=== PATIENT | male | born 1970 | race Caucasian/White ===

== ENCOUNTER 2019-01-19 06:54 | Inpatient (IN) ==
--- NOTE | 2019-01-19 07:25 | Emergency Department Note ---
Disposition Clinical Impression: Acute pancreatitis Qualifiers: Pancreatitis type: alcohol induced Acute pancreatitis complication: no infection or necrosis Qualified Code(s): K85.20 - Alcohol induced acute pancreatitis without necrosis or infection Nausea & vomiting Qualifiers: Vomiting type: unspecified Vomiting Intractability: intractable Qualified Code(s): R11.2 - Nausea with vomiting, unspecified Disposition: Admitted As Inpatient Condition: Fair Abdominal Pain HPI - General Chief Complaint: ED Abdominal Pain Stated Complaint: Abd Pain Time Seen by Provider: 01/19/19 07:04 Source: patient Nursing Notes Reviewed: Yes Vital Signs Reviewed: Yes - History of Present Illness HPI Narrative: 48 male with past history of alcoholic cirrhosis and pancreatitis presented to the emergency department yesterday with 2 week history of abdominal pain. Workup yesterday including basic labs and CT imaging of the abdomen and pelvis demonstrated findings significant with chronic pancreatitis. Patient was offered admission for pain and nausea control but declined and returned home wit h immediate release morphine and Zofran. He returned to the emergency department today stating his pain is not controlled at home and is requesting admission for pain and nausea control today. He denies any changes from yesterday in his pain or associated nausea, or any new symptoms. He denies any vomiting within the last several days. Last bowel movement was 2 days ago and was normal. Additional associated symptoms included abdominal distention, weight loss secondary to decreased by mouth intake. Otherwise no acute complaints. Patient states he has abstained from alcohol for 2 years, does not use drugs or tobacco. Pain Scale: 8 - Related Data Home Medications Medication Instructions Recorded Confirmed Amlodipine [Amlodipine Besylate] 10 mg PO QAM 08/16/15 05/27/16 Nadolol [Corgard] 20 mg PO QAM 08/16/15 05/27/16 Divalproex (12 HR) [Depakote (12 250 mg PO TID 05/27/16 05/27/16 HR)] Baclofen 01/09/18 Citalopram 01/09/18 Gabapentin 01/09/18 Lisinopril 01/09/18 Naltrexone 01/09/18 Ranitidine HCl 01/09/18 Previous Rx's Medication Instructions Recorded Amoxicillin/Clavulanate [Augmentin] 875 mg PO BIDWM 7 Days #14 tablet 01/18/19 Morphine Immed Rel [Morphine 15 mg PO Q6HR PRN 4 Days #12 tab 01/18/19 Sulfate] Ondansetron [Zofran ODT] 8 mg SL Q8H PRN 4 Days #12 tab 01/18/19 Allergies Allergy/AdvReac Type Severity Reaction Status Date / Time hydrocodone [From Vicodin] Allergy Rash Verified 01/19/19 07:06 oxycodone [From Percocet] Allergy Rash Verified 01/19/19 07:06 narcotics AdvReac Gastrointestinal Uncoded 10/05/15 11:22 Upset All systems ED: reviewed and negative except as stated. Review of Systems: As Per HPI Abdominal Pain PMH - Past Medical History Medical history: Reports: hypertension, seizures Male Surgical History: Reports: other Psychiatric history: Reports: depression - Social History Smoking status: Former smoker Alcohol use: Reports: none Drug use: Reports: none Physical Exam - General Limitations: no limitations General appearance: alert, in no apparent distress - Eye Eye exam: Present: normal appearance, PERRL. 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 Absent: ascites (No fluid wave) Abdominal tenderness: Present: LLQ, diffuse, mild - Extremities Exam Extremities exam: Present: normal inspection - Back Exam Back exam: Present: normal inspection - Neurological Exam Neurological exam: Present: alert, oriented X3 - Psychiatric Psychiatric exam: Present: normal affect - Skin Skin exam: Present: warm, dry Course Course Narrative: Patient was evaluated in the emergency department yesterday for pain and nausea secondary to acute on chronic chronic pancreatitis. We will reassess with CBC, BMP, lipase, ethanol, EKG. We will not repeat imaging as CT of the abdomen and pelvis was performed yesterday without acute change in clinical signs or symptoms today. Anticipate admission to medicine for intractable pain and nausea control. Vital Signs Temperature 98.3 F 01/19/19 07:03 Pulse Rate 95 01/19/19 07:03 Respiratory Rate 16 01/19/19 07:03 Blood Pressure 127/92 01/19/19 07:03 O2 Sat by Pulse Oximetry 95 01/19/19 07:03 Temperature 98.3 F 01/19/19 07:03 Pulse Rate 95 01/19/19 07:03 Respiratory Rate 18 01/19/19 10:44 Blood Pressure 144/102 01/19/19 10:44 O2 Sat by Pulse Oximetry 95 01/19/19 07:03 Oxygen Delivery Oxygen Delivery Room Air Abdominal Pain - MDM Narrative Medical decision making narrative: Labs demonstrating leukocytosis, thrombocytosis, stable hemoglobin consistent more with hemoconcentration secondary to dehydration rather than acute infectious process. He does not have fever, tachycardia, other clinical signs or symptoms to indicate infectious process. BMP significant for hyponatremia, hypokalemia, hypochloremia, elevated lipase. Lipase of 119 is not elevated into the thousands as may be expected with pancreatitis however it is likely that his chronic pancreatitis has impaired his ability to produce lipase. EKG stable. We will supplement with normal saline bolus and intravenous potassium. Based on patient's intractable nausea and pain secondary to pancreatitis we will admit to the medicine service for pain control and nausea control. Spoke with Dr. Lopez admitting hospitalist who accepted. - Medical Records Medical records reviewed: Yes I reviewed the patient's medical records. - Lab Data Lab results reviewed: Yes I reviewed the patient's lab results. Result diagrams: 01/19/19 07:55 01/19/19 07:55 Lab Results 01/19/19 01/19/19 Range/Units 07:55 07:55 WBC 19.2 H (4.3-11.1) K/mcL RBC 4.46 (4.19-5.50) M/mcL Hgb 14.3 (12.9-16.9) g/dL Hct 41.2 (37.5-50.1) % MCV 92.4 (83.0-100.0) fL MCH 32.1 (28.0-33.3) pg MCHC 34.7 (31.6-35.5) g/dL RDW 16.4 H (11.5-14.5) % Plt Count 616 H (140-400) K/mcL MPV 10.6 (9.4-12.4) fL Immature Gran % 2.6 (0-4) % Seg Neutrophils % 76.1 % Lymphocytes % 8.3 % Monocytes % 12.1 % Eosinophils % 0.4 % Basophils % 0.5 % Neutrophils # 14.6 H (1.6-8.9) K/mcL Lymphocytes # 1.6 (0.6-4.6) K/mcL Monocytes # 2.3 H (0.0-1.3) K/mcL Eosinophils # 0.1 (0.0-0.6) K/mcL Basophils # 0.1 (0.0-0.2) K/mcL Nucleated RBCs/100 WBC 0.3 H (0) /100 WBC Sodium 128 L (136-145) mEq/L Potassium 3.1 L (3.5-5.1) mEq/L Chloride 93 L (98-107) mEq/L Carbon Dioxide 19 L (23-29) mEq/L BUN 13 (6-20) mg/dL Creatinine 0.87 (0.70-1.30) mg/dL Est GFR ( Amer) > 60 (> 60) Est GFR (Non-Af Amer) > 60 (> 60) BUN/Creatinine Ratio 15 (6-26) Glucose 115 H (70-105) mg/dL Calculated Osmolality 267 L (280-300) Calcium 8.9 (8.6-10.3) mg/dL Magnesium 2.0 (1.6-2.6) mg/dL Lipase 119 H (11-82) Units/L Ethyl Alcohol < 10 (Less than 10) mg/dL - EKG Data EKG attestation: Yes I reviewed and interpreted this EKG. EKG results narrative: EKG performed 01/19/2019 for abdominal pain. Reviewed by myself and the attending. Sinus rhythm, heart rate 93, PA 143, QTC 461. No signs of ST elevation or depression, T-wave inversion or other indications of acute ischemia. There is 1 apparent PVC present. Attestation Statement - Attestation Attestation: I, Guy Henry DO, examined this patient [id number] and my medical decision-making was reviewed with Maximo Aiken PGY-1, Resident Physician. I agree with the documented findings, disposition and treatment plan as described except to the extent set forth below. I personally supervised and was present for the knowles/critical portions of the procedures completed by the resident documented below. Please see my progress notes for details.
[2019-01-19] MEDS ORDERED: *HR* FentaNYL (PF) 100 MCG/2 ML VIAL IVP ONE (07:31)
[2019-01-19] MEDS ORDERED: Ondansetron 4 MG/2 ML VIAL ONE (07:53)
[2019-01-19] MEDS: Ondansetron 4 MG/2 ML VIAL IVP ONE ×2 (07:56→07:59)
--- NOTE | 2019-01-19 08:14 | Emergency Department Note ---
Disposition Clinical Impression: Nausea & vomiting Acute pancreatitis Qualifiers: Pancreatitis type: alcohol induced Acute pancreatitis complication: no infection or necrosis Qualified Code(s): K85.20 - Alcohol induced acute pancreatitis without necrosis or infection Disposition: Admitted As Inpatient Condition: Fair Time of Disposition: 10:36 General Adult HPI - General Chief complaint: ED Abdominal Pain Stated complaint: Abd Pain Time Seen by Provider: 01/19/19 07:04 Source: patient Limitations: no limitations - History of Present Illness Pain Scale: 8 - Related Data Home Medications Medication Instructions Recorded Confirmed Amlodipine [Amlodipine Besylate] 10 mg PO QAM 08/16/15 05/27/16 Nadolol [Corgard] 20 mg PO QAM 08/16/15 05/27/16 Divalproex (12 HR) [Depakote (12 250 mg PO TID 05/27/16 05/27/16 HR)] Baclofen 01/09/18 Citalopram 01/09/18 Gabapentin 01/09/18 Lisinopril 01/09/18 Naltrexone 01/09/18 Ranitidine HCl 01/09/18 Previous Rx's Medication Instructions Recorded Amoxicillin/Clavulanate [Augmentin] 875 mg PO BIDWM 7 Days #14 tablet 01/18/19 Morphine Immed Rel [Morphine 15 mg PO Q6HR PRN 4 Days #12 tab 01/18/19 Sulfate] Ondansetron [Zofran ODT] 8 mg SL Q8H PRN 4 Days #12 tab 01/18/19 Allergies Allergy/AdvReac Type Severity Reaction Status Date / Time hydrocodone [From Vicodin] Allergy Rash Verified 01/19/19 07:06 oxycodone [From Percocet] Allergy Rash Verified 01/19/19 07:06 narcotics AdvReac Gastrointestinal Uncoded 10/05/15 11:22 Upset Past Medical History - Past Medical History Medical history: Reports: hypertension, seizures Surgical history: Reports: splenectomy, other Psychiatric history: Reports: depression - Social History Smoking Status: Former smoker Smokeless Tobacco Status: No Alcohol use: Reports: none Drug use: Reports: none Physical Exam - General Limitations: no limitations General appearance: alert, in no apparent distress Course Vital Signs Temperature 98.3 F 01/19/19 07:03 Pulse Rate 95 01/19/19 07:03 Respiratory Rate 16 01/19/19 07:03 Blood Pressure 127/92 01/19/19 07:03 O2 Sat by Pulse Oximetry 95 01/19/19 07:03 Temperature 98.3 F 01/19/19 07:03 Pulse Rate 95 01/19/19 07:03 Respiratory Rate 16 01/19/19 07:03 Blood Pressure 127/92 01/19/19 07:03 O2 Sat by Pulse Oximetry 95 01/19/19 07:03 Oxygen Delivery Oxygen Delivery Room Air Medical Decision Making - Lab Data Result diagrams: 01/19/19 07:55 01/19/19 07:55 Lab Results 01/19/19 01/19/19 Range/Units 07:55 07:55 WBC 19.2 H (4.3-11.1) K/mcL RBC 4.46 (4.19-5.50) M/mcL Hgb 14.3 (12.9-16.9) g/dL Hct 41.2 (37.5-50.1) % MCV 92.4 (83.0-100.0) fL MCH 32.1 (28.0-33.3) pg MCHC 34.7 (31.6-35.5) g/dL RDW 16.4 H (11.5-14.5) % Plt Count 616 H (140-400) K/mcL MPV 10.6 (9.4-12.4) fL Immature Gran % 2.6 (0-4) % Seg Neutrophils % 76.1 % Lymphocytes % 8.3 % Monocytes % 12.1 % Eosinophils % 0.4 % Basophils % 0.5 % Neutrophils # 14.6 H (1.6-8.9) K/mcL Lymphocytes # 1.6 (0.6-4.6) K/mcL Monocytes # 2.3 H (0.0-1.3) K/mcL Eosinophils # 0.1 (0.0-0.6) K/mcL Basophils # 0.1 (0.0-0.2) K/mcL Nucleated RBCs/100 WBC 0.3 H (0) /100 WBC Sodium 128 L (136-145) mEq/L Potassium 3.1 L (3.5-5.1) mEq/L Chloride 93 L (98-107) mEq/L Carbon Dioxide 19 L (23-29) mEq/L BUN 13 (6-20) mg/dL Creatinine 0.87 (0.70-1.30) mg/dL Est GFR ( Amer) > 60 (> 60) Est GFR (Non-Af Amer) > 60 (> 60) BUN/Creatinine Ratio 15 (6-26) Glucose 115 H (70-105) mg/dL Calculated Osmolality 267 L (280-300) Calcium 8.9 (8.6-10.3) mg/dL Magnesium 2.0 (1.6-2.6) mg/dL Lipase 119 H (11-82) Units/L Ethyl Alcohol < 10 (Less than 10) mg/dL Attestation Statement - Attestation Attestation: I, Guy Henry DO, examined this patient [id number] and my medical decision-making was reviewed with Maximo Aiken PGY-1, Resident Physician. I agree with the documented findings, disposition and treatment plan as described except to the extent set forth below. I personally supervised and was present for the knowles/critical portions of the procedures completed by the resident documented below. Please see my progress notes for details. 48-year-old male presents emergency room for evaluation of persistent abdominal pain. Patient was seen yesterday for similar and was diagnosed with resolving pancreatitis. His Tobin score was a 1 at that time and was felt by the previous providers at the patient was capable of going home. Detailed labs including CT imaging were completed that time the patient was otherwise stable. During the middle the night, the patient had progressively worsening pain again he required taking double the dose of medication that he was typically supposed to. Patient is denying any fevers or chills. He has not had any nausea vomiting or diarrhea. Denies any headache or vision change. Currently denying chest pain or shortness of breath. Patient is alert he is oriented. Lungs are clear. Heart is regular. Abdomen is slightly distended with his history of ascites but no peritoneal symptoms noted at this time. He is diffusely uncomfortable with palpation and worse up in the epigastrium. He has no guarding rigidity or peritoneal symptoms at this point. Extremities are normal. Skin is normal. No signs of jaundice or discoloration. At this time, clinical concern is for poorly controlled pancreatic-like presentation. Patient does not have any acute signs of ascending cholangitis or infectious etiology. There is no need at this point for diagnostic peritoneal sample. Patient will be monitored here symptoms are controlled repeat labs will be collected. Disposition will most likely be admission secondary failed outpatient management. See detailed documentation the physical exam, medical intervention, medical decision-making and disposition in the resident physician's note. No critical care by the patient's treatment course at this time. 0945 Patient has stable labs. CT scan was not warranted at this point. White count is down trending. Patient has acute pancreatitis. Patient will be monitored closely here in the emergency department. Patient was discussed with the hospitalist Dr. mccormick. Patient is otherwise clinical stable. He is nothing by mouth at this time. He has been informed that he will not be provided with any significant pain medication will here will try to wean amylase weakness at home. Patient is comfortable this plan. Significantly better although no other concerns or issues at this point. Patient will be monitored here in the emergency department until the admission process is completed.
[2019-01-19 08:32] LABS: Basophils # 0.1 K/mcL (0.0-0.2); Basophils % 0.5 %; Eosinophils # 0.1 K/mcL (0.0-0.6); Eosinophils % 0.4 %; Hematocrit 41.2 % (37.5-50.1); Hemoglobin 14.3 g/dL (12.9-16.9); Immature Granulocytes % 2.6 % (0-4); Lymphocytes # 1.6 K/mcL (0.6-4.6); Lymphocytes % 8.3 %; Mean Corpuscular HGB Conc 34.7 g/dL (31.6-35.5); Mean Corpuscular Hemoglobin 32.1 pg (28.0-33.3); Mean Corpuscular Volume 92.4 fL (83.0-100.0); Mean Platelet Volume 10.6 fL (9.4-12.4); Monocytes # 2.3 K/mcL (0.0-1.3); Monocytes % 12.1 %; Neutrophils # 14.6 K/mcL (1.6-8.9); Nucleated Red Blood Cells 0.3 /100 WBC (0); Platelet Count 616 K/mcL (140-400); Red Blood Count 4.46 M/mcL (4.19-5.50); Red Cell Distribution Width 16.4 % (11.5-14.5); Segmented Neutrophils % 76.1 %
[2019-01-19] MEDS ORDERED: 0.9 % Sodium Chloride 1,000 ML IVC ONE (08:45)
[2019-01-19 08:55] LABS: BUN/Creatinine Ratio 15 (6-26); Blood Urea Nitrogen 13 mg/dL (6-20); Calcium 8.9 mg/dL (8.6-10.3); Carbon Dioxide 19 mEq/L (23-29); Chloride 93 mEq/L (98-107); Ethanol < 10 mg/dL (Less than 10); Glucose 115 mg/dL (70-105); Lipase 119 Units/L (11-82); Osmolality,Calculated 267 (280-300); Potassium 3.1 mEq/L (3.5-5.1); Sodium 128 mEq/L (136-145); eGFR For Non-African Americans > 60 (> 60)
[2019-01-19] MEDS ORDERED: Potassium Chloride 20 MEQ, Lidocaine 1% 2 ML in D5% in Water 250 ML IVPB ONE (09:15)
[2019-01-19] MEDS ORDERED: OXYCODONE Oral CONC 10 MG/0.5 ML ORAL.SYG SL PRN ×2 (12:42)
[2019-01-19] MEDS ORDERED: Ondansetron ODT 4 MG TAB.RAPDIS SL PRN (12:42)
[2019-01-19] MEDS ORDERED: Naloxone 0.4 MG/ML INJ IVP PRN ×2 (12:42)
--- NOTE | 2019-01-19 12:46 | Internal Med History&Physical ---
Date of Encounter: 01/19/19 Time of Encounter: 12:46 Internal Medicine - H&P: HPI Chief complaint: Abdominal pain History of present illness: 48-year-old male with past history of alcoholic cirrhosis and pancreatitis who presents emergency room for evaluation of persistent abdominal pain. Patient was seen yesterday for similar and was diagnosed with resolving pancreatitis, he was offered to be admitted however he declined and was discharged. CT imaging were completed that time the patient was otherwise stable. The patient stated that his pain started progressively worsening overnight. Patient reports some nausea however he denies,vomiting and diarrhea. The patient was evaluated by the ER staff and his laboratory data revealed elevated lipase of 119 , h yponatremia, hypokalemia. The patient was admitted for further evaluation of intractable nausea and pain secondary to pancreatitis . Past Med Surg Social Fam HX - Past Medical History Medical history: hypertension, seizures Additional medical history: osteoarthritis. Degenerative Disc Disease. HX pancreatitis. alcoholic hepatitis. ITP s/p spleenectomy Psychiatric history: depression - Past Surgical History Surgical History: splenectomy, other Additional surgical history: cervical fusion. lumbar discectomy. Right ACL repair. splenectomy - Social History Smoking Status: Former smoker Smokeless Tobacco Status: No Alcohol use: none Drug use: none - Family History Father Family Member Ethnicity: Non- Living Status: Still Living Hx Family Cancer: Yes (skin) Hx Family Endocrine Disorder: Yes (Father is diabetic) Mother Adopted: No Living Status: Still Living Hx Family Cardiac Disorders: Yes Hx Family Cancer: Yes (lung, breast, skin, brain) Internal Medicine - H&P: Meds Citalopram Hydrobromide [Citalopram HBr] 20 mg PO DAILY 01/19/19 [History] Divalproex (24 HR) [Depakote ER (24 HR)] 250 mg PO TID 01/19/19 [History] Folic Acid 1 mg PO DAILY 01/19/19 [History] Gabapentin [Neurontin] 100 mg PO BID 01/19/19 [History] Lisinopril [Zestril] 5 mg PO DAILY 01/19/19 [History] Nadolol 20 mg PO DAILY 01/19/19 [History] Pantoprazole Sodium [Protonix] 40 mg PO DAILY 01/19/19 [History] Thiamine HCl [Vitamin B-1] 100 mg PO DAILY 01/19/19 [History] amLODIPine [Norvasc] 5 mg PO DAILY 01/19/19 [History] Allergy/AdvReac Type Severity Reaction Status Date / Time hydrocodone [From Vicodin] Allergy Rash Verified 01/19/19 17:16 oxycodone [From Percocet] Allergy Rash Verified 01/19/19 17:16 narcotics AdvReac Gastrointestinal Uncoded 01/19/19 17:16 Upset All Systems PM: A 10-system review of systems was performed and is negative for pertinent findings except as documented above in the HPI. - Constitutional Vitals: Temp Pulse Resp BP Pulse Ox 98.3 F 95 18 144/102 95 01/19/19 07:03 01/19/19 07:03 01/19/19 10:44 01/19/19 10:44 01/19/19 07:03 Exam: Gen: NAD, vitals noted HEENT: Normocephalic/atraumatic, EOMI, PERRL, moist mucous membranes Neck: Supple, trachea midline Respiratory: normal respiratory effort, CTAB. No rales, rhonchi, wheezing. Cardiovascular: RRR, + S1/S2, non-pitting peripheral edema Abdomen: distended, no rigidity, tender to palpation LLQ > RLQ, active bowel sounds Extremities: Normal inspection, full range of motion, non-pitting BLE edema Neuro: AAO x 3, cooperative, cranial nerves II -XII grossly intact, no focal neuro deficits, mentating well Skin: Clean, dry, intact, normal color Psych: Cooperative with exam, answers questions appropriately, appropriate mood and affect Internal Med - H&P Results - Labs CBC & Chem 7: 01/22/19 01:54 01/22/19 01:54 Labs: Short CBC 01/19/19 Range/Units 07:55 WBC 19.2 H (4.3-11.1) K/mcL Hgb 14.3 (12.9-16.9) g/dL Hct 41.2 (37.5-50.1) % Plt Count 616 H (140-400) K/mcL Neutrophils # 14.6 H (1.6-8.9) K/mcL BMP 01/19/19 07:55 Sodium 128 L Potassium 3.1 L Chloride 93 L Carbon Dioxide 19 L BUN 13 Creatinine 0.87 Glucose 115 H Calcium 8.9 - Assessment and Plan (1) Pancreatitis Status: Acute Assessment and plan: CAT scan of the abdomen revealed Wall thickening and inflammatory change involving the distal duodenum is suspected to be secondary to acute pancreatitis and likely a primary small bowel process. Hepatic cirrhosis was also noted . The patient lipase is mildly elevated, pancreatitis appears to be resolving, keep nothing by mouth and advanced diet as tolerated, target isotonic fluid with normal saline, and replace electrolytes. Zofran (ondansetron) PRN for Nausea. Qualifiers: Chronicity: chronic Pancreatitis type: alcohol induced Qualified Code(s): K86.0 - Alcohol-induced chronic pancreatitis (2) HTN (hypertension) Status: Chronic Assessment and plan: We will cont. home antihypertensive medication, and monitor blood pressure. Qualifiers: Hypertension type: essential hypertension Qualified Code(s): I10 - Essential (primary) hypertension (3) Alcohol abuse Status: Chronic Assessment and plan: There is no evidence of alcohol withdrawal. (4) Hypokalemia Status: Acute Assessment and plan: We will replace and continue to monitor potassium level (5) DVT prophylaxis Status: Acute Assessment and plan: Discharge ambulation, we will place SCDs (6) Hyponatremia Status: Acute Assessment and plan: Most likely secondary to volume depletion, in the setting of decreased oral intake due to nausea, start the patient on IV hydration with isotonic fluid, monitor sodium level. (7) Alcoholic cirrhosis of liver Status: Chronic Qualifiers: Ascites presence: unspecified Qualified Code(s): K70.30 - Alcoholic cirrhosis of liver without ascites (8) Seizure disorder Status: Chronic Assessment and plan: The patient has questionable history of seizure disorder versus alcohol withdrawal during his prior hospitalization in 2016 his currently on Depakote. - Time Spent With Patient Total time spent is greater than 50% in coordination of care (as documented) at patient's floor/unit and/or counseling patient:
[2019-01-19] MEDS: 0.9 % Sodium Chloride 1,000 ML IVC SCH ×2 (13:18→19:55)
[2019-01-19 15:09] LABS: Alanine Aminotransferase 22 Units/L (7-52); Albumin 3.2 g/dL (3.5-5.7); Albumin/Globulin Ratio 0.8 (1.1-2.2); Alkaline Phosphatase 154 Units/L (34-104); Aspartate Amino Transferase 26 Units/L (13-39); BUN/Creatinine Ratio 13 (6-26); Blood Urea Nitrogen 11 mg/dL (6-20); Calcium 8.3 mg/dL (8.6-10.3); Carbon Dioxide 24 mEq/L (23-29); Chloride 96 mEq/L (98-107); Globulin 3.8 g/dL (2.4-3.5); Glucose 110 mg/dL (70-105); Osmolality,Calculated 276 (280-300); Potassium 3.3 mEq/L (3.5-5.1); Sodium 133 mEq/L (136-145); eGFR For Non-African Americans > 60 (> 60)
[2019-01-19] MEDS ORDERED: Acetaminophen 325 MG TABLET PO PRN (15:56)
[2019-01-19] MEDS: Ondansetron 4 MG/2 ML VIAL IVP PRN (17:47)
[2019-01-19] MEDS: *HR* HYDROmorphone 2 MG/ML SYRINGE IVP PRN (17:48)
[2019-01-20] MEDS: Ondansetron 4 MG/2 ML VIAL IVP PRN ×4 (00:07→20:35)
[2019-01-20] MEDS: *HR* HYDROmorphone 2 MG/ML SYRINGE IVP PRN ×2 (00:08→06:51)
[2019-01-20] MEDS ORDERED: *HR* HYDROmorphone (PF) 1 MG/ML SYRINGE IVP ONE (04:42)
[2019-01-20 05:45] LABS: Hematocrit 38.7 % (37.5-50.1); Hemoglobin 13.6 g/dL (12.9-16.9); Mean Corpuscular HGB Conc 35.1 g/dL (31.6-35.5); Mean Corpuscular Volume 93.9 fL (83.0-100.0); Mean Platelet Volume 10.4 fL (9.4-12.4); Nucleated Red Blood Cells 0.9 /100 WBC (0); Platelet Count 654 K/mcL (140-400); Red Blood Count 4.12 M/mcL (4.19-5.50); Red Cell Distribution Width 16.8 % (11.5-14.5)
[2019-01-20 05:50] LABS: INR 1.8; Prothrombin Time 20.7 Seconds (9.4-12.1)
[2019-01-20 05:53] LABS: Activated Partial Thrombo Time 35.8 Seconds (26.0-36.0)
[2019-01-20 06:06] LABS: Chol/HDL Ratio 18.2 (0-4.9); Magnesium 1.9 mg/dL (1.6-2.6); Phosphorous 1.6 mg/dL (2.7-4.5)
[2019-01-20 06:11] LABS: Lymphocytes # 2.6 K/mcL (0.6-4.6); Monocytes # 3.1 K/mcL (0.0-1.3); Neutrophils # 16.1 K/mcL (1.6-8.9)
[2019-01-20 06:12] LABS: Platelet Estimate Increased (Normal)
[2019-01-20] MEDS: 0.9 % Sodium Chloride 1,000 ML IVC SCH ×3 (08:44→23:20)
[2019-01-20] MEDS ORDERED: Potassium Phosphate 44 MEQ in 0.9 % Sodium Chloride 250 ML IVPB ONE (09:32)
[2019-01-20 09:34] LABS: BUN/Creatinine Ratio 12 (6-26); Blood Urea Nitrogen 9 mg/dL (6-20); Calcium 8.7 mg/dL (8.6-10.3); Carbon Dioxide 20 mEq/L (23-29); Chloride 96 mEq/L (98-107); Glucose 99 mg/dL (70-105); Osmolality,Calculated 275 (280-300); Potassium 3.3 mEq/L (3.5-5.1); Sodium 133 mEq/L (136-145); eGFR For Non-African Americans > 60 (> 60)
--- NOTE | 2019-01-20 10:13 | Electrocardiograph Report ---
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
[2019-01-20] MEDS: *HR* HYDROmorphone (PF) 1 MG/ML SYRINGE IVP PRN ×5 (10:51→23:22)
--- NOTE | 2019-01-20 11:02 | Internal Med Progress Note ---
<Nohemi Logan - Last Filed: 01/20/19 18:20> Hospitalist Progress Note - Encounter Date of Encounter: 01/20/19 Time of Encounter: 11:01 - Exam Vitals: Temp Pulse Resp BP Pulse Ox 98.1 F 110 21 151/92 95 01/20/19 07:12 01/20/19 07:12 01/20/19 07:12 01/20/19 07:12 01/20/19 07:12 Exam: Gen.: Mild distress, AAO 3 HEENT: Normocephalic/atraumatic, EOMI, PERRL Neck: Supple, trachea midline Respiratory: Decreased inspiratory effort, CTAB. No Rales, rhonchi, wheezing Cardiovascular: Tachycardia, regular rhythm, + S1/S2, no lower extremity edema Extremities: Normal inspection, full range of motion, no edema Neuro: Alert, cooperative, cranial nerves II -XII grossly intact, no focal neuro deficits Skin: Clean, dry, intact, normal color Psych: Cooperative with exam, answers questions appropriately - Summary of Assessment and Plan Summary of Assessment and Plan: Mr. Friend is a 48 year old male with hx of EtoH cirrhosis and chronic pancreatitis presents with abdominal pain x 16 days that started epigastric, but shifted to right side, now to LLQ and endorses fevers/chills with decreased PO intake. CT abdomen pelvis 01/18 shows acute pancreatitis on chronic pancreatic changes, duodenal inflammation, hepatic cirrhosis; pertinent labs WBC 19.2, Na 128, K 3.1, lipase 119. A/P Pancreatitis: Chronic with resolving acute episode? Lipase 119, improved from 1339 on 01/13. Pancreatic duct dilation and possible stone on CT. GI consulted. - IV NS @ 150 mL/hr - Tylenol and hydromorphone PRN for pain control, zofran for nausea Intra-abdominal infection: Suspected d/t abnormal shifting of abdominal pain. GI consulted regarding additional imaging/testing and empiric abx, recommended transfer to [facility]. - Transfer pending bed availability SIRS: Meets 3/4 with HR 110, RR 21, WBC 19.2. Afebrile this admission, continue to monitor. Concern for possibility of intra-abd infection as above. Hyponatremia: Improving, Na 128 on arrival. Continue IV NS. - Recheck with AM labs Hypokalemia: Improving, K 3.1 on arrival. Replaced with KPhos 44 mEq IV. Will replace PRN. - Recheck K ordered for 20:00 Hypophosphatemia: Phos 1.6 on arrival. Replaced with KPhos 44 mEq IV. Will replace PRN. - Recheck with AM labs Hx of EtOH abuse: Ethyl alcohol level wnl. Patient reports last drink over 2 years ago. Alcoholic cirrhosis of liver: Observed on CT imaging 01/18 Prohylaxis: Heparin SubQ Diet: NPO - Time Spent with Patient Total time spent is greater than 50% in coordination of care (as documented) at patient's floor/unit and/or counseling patient: less than 15 minutes Plan of Care Discussed with: patient Internal Medicine: Result - Labs CBC & Chem 7: 01/20/19 04:55 01/20/19 08:52 Labs: Short CBC 01/20/19 Range/Units 04:55 WBC 21.8 H (4.3-11.1) K/mcL Hgb 13.6 (12.9-16.9) g/dL Hct 38.7 (37.5-50.1) % Plt Count 654 H (140-400) K/mcL Neutrophils # 16.1 H (1.6-8.9) K/mcL BMP 01/19/19 01/20/19 14:12 08:52 Sodium 133 L 133 L Potassium 3.3 L 3.3 L Chloride 96 L 96 L Carbon Dioxide 24 20 L BUN 11 9 Creatinine 0.85 0.78 Glucose 110 H 99 Calcium 8.3 L 8.7 Liver Function 01/19/19 Range/Units 14:12 Total Bilirubin 1.0 (0.3-1.0) mg/dL AST 26 (13-39) Units/L ALT 22 (7-52) Units/L Alkaline Phosphatase 154 H (34-104) Units/L Albumin 3.2 L (3.5-5.7) g/dL - ABG Interpretation ABG results: PT/INR, D-dimer PT 20.7 Seconds (9.4-12.1) H 01/20/19 04:55 Consult Discharge Plan - Plan Referrals: Sara Garcia MD [Primary Care Provider] - 01/29/19 11:00 am <Jean Paul Sy - Last Filed: 01/20/19 18:36> Hospitalist Progress Note - Encounter Date of Encounter: 01/20/19 Internal Medicine: Result - Labs CBC & Chem 7: 01/20/19 04:55 01/20/19 08:52 Labs: Short CBC 01/20/19 Range/Units 04:55 WBC 21.8 H (4.3-11.1) K/mcL Hgb 13.6 (12.9-16.9) g/dL Hct 38.7 (37.5-50.1) % Plt Count 654 H (140-400) K/mcL Neutrophils # 16.1 H (1.6-8.9) K/mcL BMP 01/19/19 01/20/19 14:12 08:52 Sodium 133 L 133 L Potassium 3.3 L 3.3 L Chloride 96 L 96 L Carbon Dioxide 24 20 L BUN 11 9 Creatinine 0.85 0.78 Glucose 110 H 99 Calcium 8.3 L 8.7 Liver Function 01/19/19 Range/Units 14:12 Total Bilirubin 1.0 (0.3-1.0) mg/dL AST 26 (13-39) Units/L ALT 22 (7-52) Units/L Alkaline Phosphatase 154 H (34-104) Units/L Albumin 3.2 L (3.5-5.7) g/dL - ABG Interpretation ABG results: PT/INR, D-dimer PT 20.7 Seconds (9.4-12.1) H 01/20/19 04:55 - Attending Attestation Patient seen and examined independently, including review of objective data including labs. I agree with plan of care as documented above by the resident with the following comments: Pt w EtOH cirrhosis and chronic pancreatitis p/w 16d abd pain, which began as usual epigastric pain but has since shifted first to R side then evolving over last few days to LLQ pain, and pt has reportedly not eaten in 2 weeks. Vitals w HR 110 and RR 21 possibly from pain. Exam notable for mildly distended soft abd with focal tenderness mild in epigastrium and much more so in LLQ. Labs w WBC 20, K 3.3, P 1.6, lipase 200. CT a/p from 01/18 w acute on chronic panc, cirrhotic morphology, no other focal findings including no ascites. This certainly could be acute on chronic panc given his hx and initial symptoms with mild lipase elevation this all fits. However, the evolution of his pain to focal LLQ pain is concerning, especially in context of WBC 20 for 2 days with vitals that although likely from pain do score him for SIRS, and w hx cirrhosis the possibility of intraabdominal infection is present - start MIVF@150 - replace K and P w K-phos - GI consult for complicated hx and presentation to include addl eval/mgmt of pancreatitis but also further rec's re LLQ pain and if need for addl imaging or if would benefit from empiric abx
--- NOTE | 2019-01-20 15:25 | Discharge Summary ---
<Manpreet Light - Last Filed: 01/22/19 18:44> Orders not resulted at time of discharge: Pending orders 01/20/19 16:56 AFP Tumor Marker Non- Routine DOTTIE IgG BROWN rflx IFA Routine F-Actin IgG Reflex Sm Muscle Routine MPO/PR3 (ANCA) Antibodies Routine Mitochondrial M2 Antibody, IgG Routine Date of Encounter: 01/22/19 - Discharge Diagnosis (1) Acute pancreatitis Priority: Primary Status: Acute Qualifiers: Pancreatitis type: alcohol induced Acute pancreatitis complication: no infection or necrosis Qualified Code(s): K85.20 - Alcohol induced acute pancreatitis without necrosis or infection (2) HTN (hypertension) Priority: Secondary Status: Chronic Qualifiers: Hypertension type: essential hypertension Qualified Code(s): I10 - Essential (primary) hypertension (3) Pancreatitis Status: Acute Qualifiers: Chronicity: chronic Pancreatitis type: alcohol induced Qualified Code(s): K86.0 - Alcohol-induced chronic pancreatitis Hospital course: Mr. Friend is a 48 year old male - Time Spent with Patient Total time spent providing and/or coordinating discharge services: 25min - Discharge Medications Prescriptions: Continued amLODIPine [Norvasc] 5 mg PO DAILY Citalopram Hydrobromide [Citalopram HBr] 20 mg PO DAILY Divalproex (24 HR) [Depakote ER (24 HR)] 250 mg PO TID Folic Acid 1 mg PO DAILY Gabapentin [Neurontin] 100 mg PO BID Lisinopril [Zestril] 5 mg PO DAILY Nadolol 20 mg PO DAILY Pantoprazole Sodium [Protonix] 40 mg PO DAILY Thiamine HCl [Vitamin B-1] 100 mg PO DAILY Home Medications: Citalopram Hydrobromide [Citalopram HBr] 20 mg PO DAILY 01/19/19 [History] Divalproex (24 HR) [Depakote ER (24 HR)] 250 mg PO TID 01/19/19 [History] Folic Acid 1 mg PO DAILY 01/19/19 [History] Gabapentin [Neurontin] 100 mg PO BID 01/19/19 [History] Lisinopril [Zestril] 5 mg PO DAILY 01/19/19 [History] Nadolol 20 mg PO DAILY 01/19/19 [History] Pantoprazole Sodium [Protonix] 40 mg PO DAILY 01/19/19 [History] Thiamine HCl [Vitamin B-1] 100 mg PO DAILY 01/19/19 [History] amLODIPine [Norvasc] 5 mg PO DAILY 01/19/19 [History] Allergies/Adverse Reactions: Allergy/AdvReac Type Severity Reaction Status Date / Time hydrocodone [From Vicodin] Allergy Rash Verified 01/19/19 17:16 oxycodone [From Percocet] Allergy Rash Verified 01/19/19 17:16 narcotics AdvReac Gastrointestinal Uncoded 01/19/19 17:16 Upset Date of admission: 01/20/19 13:03 Primary care physician: Sara Garcia MD Consults: 01/20/19 13:29 Consult to Gastroenterology [CONS] Routine Consulting Provider: [facility] [place] Reason for Consult: EtOH cirrhotic with resolving pancreatitis p/w shifting abdominal pain, no hx of ascites, but concerned for SBP. Recs for additional imaging/studies and possible abx? Call Completed: Yes - Constitutional Vitals: Temp Pulse Resp BP Pulse Ox 98.6 F 77 16 157/102 96 01/22/19 11:11 01/22/19 11:11 01/22/19 11:11 01/22/19 11:11 01/22/19 11:11 - Patient Status Disposition: Transfer Other Condition: Fair - Discharge Instructions Follow Up With: Sara Garcia MD [Primary Care Provider] - 01/29/19 11:00 am - Attending Attestation I examined this patient and my medical decision-making was reviewed with the Resident Physician on 01/22/19. I agree with the documented findings, disposition and treatment plan as described except to the extent set forth below. Mr Friend has been admitted for acute on chronic pancreatitis. He was evaluated by GI and felt that he needed transferred to tertiary care center for further treatment. At this time he is afebrile but remains in pain. Exam Alert Mod distress due to paint Mucus membranes moist Heart reg No wheeze abd tender in epigastrium Plan D/C to [facility] today. <Nohemi Logan - Last Filed: 01/22/19 20:58> Orders not resulted at time of discharge: Pending orders 01/21/19 04:00 Basic Metabolic Panel AM 0400 Complete Blood Count w/o Diff [HEME] AM 0400 Hepatic Panel AM 0400 Magnesium AM 0400 01/22/19 04:00 Basic Metabolic Panel AM 0400 Complete Blood Count w/o Diff [HEME] AM 0400 Hepatic Panel AM 0400 Magnesium AM 0400 01/23/19 04:00 Basic Metabolic Panel AM 0400 Complete Blood Count w/o Diff [HEME] AM 0400 Hepatic Panel AM 0400 Magnesium AM 0400 Date of Encounter: 01/22/19 Time of Encounter: 15:23 - Discharge Diagnosis (1) Pancreatitis Priority: Primary Status: Acute Qualifiers: Chronicity: chronic Pancreatitis type: alcohol induced Qualified Code(s): K86.0 - Alcohol-induced chronic pancreatitis (2) UTI (urinary tract infection) Priority: Secondary Status: Acute Qualifiers: Qualified Code(s): N39.0 - Urinary tract infection, site not specified (3) Intra-abdominal infection Priority: Secondary Status: Suspected (4) Hyponatremia Priority: Secondary Status: Acute (5) Hypokalemia Priority: Secondary Status: Acute (6) Hypophosphatemia Priority: Secondary Status: Acute (7) SIRS (systemic inflammatory response syndrome) Priority: Secondary Status: Acute (8) Alcohol abuse Priority: Secondary Status: Chronic (9) HTN (hypertension) Priority: Secondary Status: Chronic Qualifiers: Hypertension type: essential hypertension Qualified Code(s): I10 - Essential (primary) hypertension (10) Seizure disorder Priority: Secondary Status: Chronic (11) Alcoholic cirrhosis of liver Priority: Secondary Status: Chronic Qualifiers: Ascites presence: unspecified Qualified Code(s): K70.30 - Alcoholic cirrhosis of liver without ascites Hospital course: Mr. Friend is a 48 year old male with hx of EtoH cirrhosis and chronic pancreatitis presenting for abdominal pain x 16 days, which began as it typically does for him in the epigastric area, however it's location has shifted to his right side and more recently moved to his LLQ with which he endorses subjective fevers/chills. He reports this has impacted his ability to tolerate PO intake. CT abdomen/pelvis 1 day prior to this presentation showed acute pancreatitis superimposed upon chronic pancreatic changes, wall thickening and inflammatory change involving distal duodenum thought to be secondary to acute pancreatitis, hepatic cirrhosis. In the emergency department he was found to have WBC 19.2, Na 128, K 3.1, lipase 119. He was afebrile on presentation but vitals notable for HR 110 and RR 21. IV fluids where started and potassium was replaced. There is concern for possibility of SBP given his elevated HR, RR, and increased leukocytosis (WBC 21.8) in the setting of shifting abdominal pain that is out of character from what he typically experiences with pancreatitis. [facility] consulted and recommended transferring patient to [facility]. Prior to his transfer to [facility] he was started on ceftriaxone for UTI with Klebsiella. Discharge discussed with: patient - Time Spent with Patient Total time spent providing and/or coordinating discharge services: Date of admission: 01/20/19 13:03 Primary care physician: Sara Garcia MD Consults: 01/20/19 13:29 Consult to Gastroenterology [CONS] Routine Consulting Provider: [facility] Reason for Consult: EtOH cirrhotic with resolving pancreatitis p/w shifting abdominal pain, no hx of ascites, but concerned for SBP. Recs for additional imaging/studies and possible abx? Call Completed: Yes Discharging clinician: Nohemi Logan Anticipated date of discharge: 01/20/19 - Constitutional Vitals: Temp Pulse Resp BP Pulse Ox 98.7 F 90 14 145/93 96 01/20/19 12:23 01/20/19 12:23 01/20/19 12:23 01/20/19 12:23 01/20/19 12:23 General appearance: Present: mild distress, A&O X 3 Exam: Gen: NAD, vitals noted HEENT: Normocephalic/atraumatic, EOMI, PERRL, moist mucous membranes Neck: Supple, trachea midline Respiratory: normal respiratory effort, CTAB. No rales, rhonchi, wheezing. Cardiovascular: RRR, + S1/S2, non-pitting peripheral edema Abdomen: distended, no rigidity, tender to palpation LLQ > RLQ, active bowel sounds Extremities: Normal inspection, full range of motion, non-pitting BLE edema Neuro: AAO x 3, cooperative, cranial nerves II -XII grossly intact, no focal neuro deficits, mentating well Skin: Clean, dry, intact, normal color Psych: Cooperative with exam, answers questions appropriately, appropriate mood and affect - Head Head exam: Present: atraumatic, normocephalic - Eye Eye exam: Present: EOMI, PERRL - Neck Neck exam general surgery: Present: supple, trachea midline - Respiratory Respiratory exam: Present: decreased breath sounds (decreased inspiratory effort), CTAB. Absent: rales, rhonchi, wheezes - Cardiovascular Cardiovascular exam: Present: +S1, +S2, tachycardia. Absent: diastolic murmur, gallop, rubs, systolic murmur - GI/Abdominal GI/Abdominal exam: Present: normal bowel sounds, tenderness. Absent: firm - Extremities Exam Extremities exam: Present: full ROM, normal inspection - Neurological Exam Neurological exam: Present: alert, CN II-XII intact, oriented X3, no focal deficits, strengths equal and symetr throughout - Skin Skin exam: Present: dry, intact, normal color - Patient Status Functional capacity at discharge: independent ambulation Overall status at discharge: patient is not back to baseline
--- NOTE | 2019-01-20 16:39 | Gastroenterology Consult Note ---
<Htiesh Jane - Last Filed: 01/20/19 16:37> Date of Encounter: 01/20/19 Time of Encounter: 11:30 - Assessment and plan (1) Acute pancreatitis Current Visit: Yes Status: Acute Assessment and plan: CT A/P 01/18 showed acute pancreatitis superimposed upon chronic pancreatic changes, pancreatic duct dilation with possible stone, wall thickening and inflammatory change involving the distal duodenum likely due to pancreatitis, and hepatic cirrhosis. Lipase 223 on 01/18 and 119 on 01/19. Patient with persistent pancreatitis for past 16 days. Remain very symptomatic. PD dilation with possible stone on CT A/P on 01/18. Recommend transfer to [facility] for possible pancreatic intervention. Qualifiers: Pancreatitis type: alcohol induced Acute pancreatitis complication: no infection or necrosis Qualified Code(s): K85.20 - Alcohol induced acute pancreatitis without necrosis or infection (2) Alcoholic cirrhosis of liver Current Visit: Yes Status: Acute Assessment and plan: MELD-Na 18 and Child-Benites class B. Complete liver work-up (AFP, alpha-1 antitrypsin, DOTTIE, ANCA, ceruloplasmin, F actin, hepatitis profile, AMA). Recommend 2-4 BMs daily, use Lactulose as needed. Lifestyle Changes: 1. Total abstinence from alcohol including social drinking. 2. No smoking. 3. Gradual loss of weight. 4. Drink at least 3 cups of coffee due to its antioxidant effects in the liver, it reduces risk of HCC and advance fibrosis. 5. If needed, use less than 2 g/day of Tylenol (in divided doses). 6. Vaccination for Hep A, B, Pneumococcus if not already received and yearly influenza vaccination by PCP. 7. Avoid NSAIDS as can cause kidney damage. 8. Avoid benzodiazepines and other sedatives such as anti-histamines, narcotics etc. as can cause encephalopathy or confusion. 9. Take a late carbohydrate meal supplement as it reduces glucose production from protein breakdown and thus improves nutrition. 10. In cirrhosis, statins are safe to use and also improve portal hypertension and decrease risk of HCC. 11. Screening: Hepatocellular cancer screening: US of liver and AFP every 6 months Qualifiers: Ascites presence: unspecified Qualified Code(s): K70.30 - Alcoholic cirrhosis of liver without ascites - Time Spent With Patient Total time spent is greater than 50% in coordination of care (as documented) at patient's floor/unit and/or counseling patient: GI History of Present Illness - Data of Consult Patient: known to practice within the last 3 years Consult date: 01/20/19 Requesting Physician: Jean Paul Sy - Consult Narrative Reason for consult: Pancreatitis History of present illness: Mr. Friend is a 48 year old male with PMHx of HTN, cirrhosis, and pancreatitis who presented to the ED for evaluation of persistent abdominal pain. Patient was seen 01/18 for similar and was diagnosed with resolving pancreatitis, he was offered to be admitted however he declined and was discharged. CT A/P 01/18 showed acute pancreatitis superimposed upon chronic pancreatic changes, pancreatic duct dilation with possible stone, wall thickening and inflammatory change involving the distal duodenum likely due to pancreatitis, and hepatic cirrhosis. Lipase 223 on 01/18 and 119 on 01/19. Patient states this is day 16 of his pancreatitis, which appears to be resolving. Pain has shifted from epigastric to LLQ. Patient reports heavy drinking in his past, but has not had any alcohol in the past 2.5 years. Procedures: EGD 09/18/2014 Dr. Foley: Normal. NSAIDs: None Anticoagulation: None Past Med Surg Social Fam HX - Past Medical History Medical history: hypertension, seizures Additional medical history: osteoarthritis. Degenerative Disc Disease. HX pancreatitis. alcoholic hepatitis. ITP s/p spleenectomy Psychiatric history: depression - Past Surgical History Surgical History: splenectomy, other Additional surgical history: cervical fusion. lumbar discectomy. Right ACL repair. splenectomy - Social History Smoking Status: Former smoker Smokeless Tobacco Status: No Alcohol use: none Drug use: none - Family History Father Family Member Ethnicity: Non- Living Status: Still Living Hx Family Cancer: Yes (skin) Hx Family Endocrine Disorder: Yes (Father is diabetic) Mother Adopted: No Living Status: Still Living Hx Family Cardiac Disorders: Yes Hx Family Cancer: Yes (lung, breast, skin, brain) - Gastrointestinal Gastrointestinal: Present: as per HPI - Constitutional Constitutional: as per HPI - EENT Eyes: as per HPI Ears: Present: as per HPI Nose, mouth and throat: Present: as per HPI - Cardiovascular Cardiovascular ROS: Present: as per HPI - Respiratory Respiratory IM: Present: as per HPI - Genitourinary Genitourinary: Absent: change in color, Urinary frequency - Neurological ROS Neurological GI: Present: as per HPI - Hematologic/Lymphatic Hematologic/Lymphatic pediatric: Present: as per HPI - Musculoskeletal Musculoskeletal ROS GI: Present: as per HPI - Integumentary Integumentary GI: Present: as per HPI - Psychiatric ROS Psychiatric GI: Present: as per HPI - Endocrine Endocrine IM: Present: as per HPI - Constitutional Vitals: Temp Pulse Resp BP Pulse Ox 98.6 F 77 16 161/85 96 01/20/19 15:22 01/20/19 15:22 01/20/19 15:22 01/20/19 15:22 01/20/19 15:22 General appearance: Present: cooperative, A&O X 3, no acute distress, answers questions appropriately - Head Head exam: Present: atraumatic, normocephalic - Eye Eye exam: Present: normal appearance, sclera anicteric - ENT ENT exam: Present: mucous membranes moist - Neck Neck exam general surgery: Present: normal inspection, trachea midline - Respiratory Respiratory exam: Present: decreased breath sounds, CTAB - Cardiovascular Cardiovascular exam: Present: RRR, +S1, +S2 - GI/Abdominal GI/Abdominal exam: Present: normal bowel sounds, soft, tenderness (epigastric, LUQ, LLQ), no peritoneal signs. Absent: distended, firm, guarding - Rectal Rectal exam: Present: deferred - Extremities Exam Extremities exam: Present: warm - Neurological Exam Neurological exam: Present: no focal deficits - Psychiatric Psychiatric exam: Present: normal affect, normal mood - Skin Skin exam: Present: dry, intact, normal color, warm Results - Labs CBC & Chem 7: 01/20/19 04:55 01/20/19 08:52 Labs: Last Result 01/20/19 01/20/19 04:55 08:52 Calcium 8.7 Triglycerides 122 Entire Visit 01/20/19 01/20/19 04:55 04:55 Hgb 13.6 Hct 38.7 PT 20.7 H - ABG ABG results: PT/INR, D-dimer PT 20.7 Seconds (9.4-12.1) H 01/20/19 04:55 Consult Discharge Plan - Plan Referrals: Sara Garcia MD [Primary Care Provider] - 01/29/19 11:00 am <Zina Foley - Last Filed: 01/20/19 17:20> Date of Encounter: 01/20/19 Time of Encounter: 15:00 - Time Spent With Patient Total time spent is greater than 50% in coordination of care (as documented) at patient's floor/unit and/or counseling patient: GI History of Present Illness - Data of Consult Requesting Physician: Jean Paul Sy - Consult Narrative History of present illness: Mr. Friend is a 48 year old male - Constitutional Vitals: Temp Pulse Resp BP Pulse Ox 98.6 F 77 16 161/85 96 01/20/19 15:22 01/20/19 15:22 01/20/19 15:22 01/20/19 15:22 01/20/19 15:22 Results - Labs CBC & Chem 7: 01/20/19 04:55 01/20/19 08:52 Labs: Last Result 01/20/19 01/20/19 04:55 08:52 Calcium 8.7 Triglycerides 122 Entire Visit 01/20/19 01/20/19 04:55 04:55 Hgb 13.6 Hct 38.7 PT 20.7 H - ABG ABG results: PT/INR, D-dimer PT 20.7 Seconds (9.4-12.1) H 01/20/19 04:55 - Attending Attestation I have personally performed a face to face evaluation on this patient. I have reviewed and agree with the care plan. History and Exam by me shows: Patient seen. Still complaining of abdominal pain with distention pain is more so now in the left lower quadrant. On examination: Abdomen is distended mildly and has tenderness in the left lower quadrant. Assessment: Patient with the acute on chronic pancreatitis ongoing for the last [address] scan showed dilated PD which is new with a possible stone in the PD. Recommendation: As patient is not getting better over the last more than 2 weeks with his symptoms and CAT scan is concerning for a possible pancreatic duct stone that is causing pancreatic duct dilation, recommend transfer to [facility] for possible pancreatic intervention
[2019-01-20 17:56] LABS: Hepatitis B Surface Antigen Nonreactive (Nonreactive)
[2019-01-20 18:24] LABS: Hepatitis C Virus Antibody Nonreactive (Nonreactive)
[2019-01-20 18:25] LABS: Hepatitis B Core IgM Nonreactive (Nonreactive)
[2019-01-20 18:26] LABS: Hepatitis A Antibody IgM Nonreactive (Nonreactive)
[2019-01-20] MEDS: cefTRIAXone 1,000 MG in Water for inj. (sterile) 20 ML 10 ML IVP SCH (19:26)
[2019-01-20] MEDS: *HR* Heparin 5,000 UNIT/ML VIAL SQ SCH (19:26)
[2019-01-21] MEDS: *HR* HYDROmorphone (PF) 1 MG/ML SYRINGE IVP PRN ×8 (02:36→23:53)
[2019-01-21] MEDS: Ondansetron 4 MG/2 ML VIAL IVP PRN ×3 (02:38→18:03)
[2019-01-21 03:01] LABS: Hematocrit 37.7 % (37.5-50.1); Hemoglobin 13.3 g/dL (12.9-16.9); Mean Corpuscular HGB Conc 35.3 g/dL (31.6-35.5); Mean Corpuscular Hemoglobin 32.5 pg (28.0-33.3); Mean Corpuscular Volume 92.2 fL (83.0-100.0); Mean Platelet Volume 10.1 fL (9.4-12.4); Platelet Count 671 K/mcL (140-400); Red Blood Count 4.09 M/mcL (4.19-5.50)
[2019-01-21 03:22] LABS: Alanine Aminotransferase 24 Units/L (7-52); Albumin 3.2 g/dL (3.5-5.7); Alkaline Phosphatase 237 Units/L (34-104); Aspartate Amino Transferase 50 Units/L (13-39); BUN/Creatinine Ratio 9 (6-26); Bilirubin,Direct 0.6 mg/dL (0.0-0.2); Bilirubin,Indirect 0.4 mg/dL (0.0-1.2); Blood Urea Nitrogen 6 mg/dL (6-20); Calcium 8.6 mg/dL (8.6-10.3); Carbon Dioxide 18 mEq/L (23-29); Chloride 98 mEq/L (98-107); Globulin 3.3 g/dL (2.4-3.5); Glucose 92 mg/dL (70-105); Magnesium 1.8 mg/dL (1.6-2.6); Osmolality,Calculated 275 (280-300); Potassium 3.2 mEq/L (3.5-5.1); Sodium 134 mEq/L (136-145); Total Protein 6.5 g/dL (6.4-8.9); eGFR For Non-African Americans > 60 (> 60)
[2019-01-21] MEDS: *HR* Heparin 5,000 UNIT/ML VIAL SQ SCH ×2 (05:34→18:03)
[2019-01-21] MEDS ORDERED: Potassium Phosphate 44 MEQ in 0.9 % Sodium Chloride 250 ML IVPB ONE (08:11)
[2019-01-21] MEDS: 0.9 % Sodium Chloride 1,000 ML IVC SCH ×2 (08:12→18:01)
--- NOTE | 2019-01-21 08:25 | Internal Med Progress Note ---
<Nohemi Logan - Last Filed: 01/21/19 16:48> Hospitalist Progress Note - Encounter Date of Encounter: 01/21/19 Time of Encounter: 10:20 - Subjective Interval History: Patient doing ok today. States his pain is pretty well controlled, but can tell when medication is wearing off. Has be getting up from bed, ambulating in his ro om. He is concerned about amount of swelling he's noticed in his lower extremities, says his lower legs and thighs are usually much thinner. Denies scrotal edema. Denies fevers/chills, chest pain, shortness of breath, nausea. - Exam Vitals: Temp Pulse Resp BP Pulse Ox 98.1 F 80 52 182/120 96 01/21/19 08:01 01/21/19 08:01 01/21/19 08:01 01/21/19 08:01 01/21/19 08:01 Exam: Gen: NAD, vitals noted HEENT: Normocephalic/atraumatic, EOMI, PERRL, moist mucous membranes Neck: Supple, trachea midline Respiratory: normal respiratory effort, CTAB. No rales, rhonchi, wheezing. Cardiovascular: RRR, + S1/S2, non-pitting peripheral edema Abdomen: distended, no rigidity, tender to palpation LLQ > RLQ, active bowel sounds Extremities: Normal inspection, full range of motion, non-pitting BLE edema Neuro: AAO x 3, cooperative, cranial nerves II -XII grossly intact, no focal neuro deficits, mentating well Skin: Clean, dry, intact, normal color Psych: Cooperative with exam, answers questions appropriately, appropriate mood and affect - Summary of Assessment and Plan Summary of Assessment and Plan: Mr. Friend is a 48 year old male with hx of EtoH cirrhosis and chronic pancreatitis presents with abdominal pain x 16 days that started epigastric, but shifted to right side, now to LLQ and endorses fevers/chills with decreased PO intake. CT abdomen pelvis 01/18 shows acute pancreatitis on chronic pancreatic changes, duodenal inflammation, hepatic cirrhosis; pertinent labs WBC 19.2, Na 128, K 3.1, lipase 119. A/P Pancreatitis: Chronic with resolving acute episode? Lipase 119, improved from 1339 on 01/13. Pancreatic duct dilation and possible stone on CT. GI consulted. Tylenol and hydromorphone PRN for pain control, zofran for nausea. - Decrease rate of IV fluids to 100mL/hr Intra-abdominal infection: Suspected d/t abnormal shifting of abdominal pain. GI consulted regarding additional imaging/testing and empiric abx, recommended transfer to [facility]. - Ceftriaxone 1 gm IV nightly started on 01/20 SIRS: Meets / with HR 110, RR 21, WBC 19.2 on admission. WBC increasing, but remains afebrile. Concern for possibility of intra-abd infection and treatment with abx as above. Hyponatremia: Improving, Na 128 on arrival. Continue IV NS and monitor with AM labs. Hypokalemia: Improving, K 3.1 on arrival. Replaced with KPhos 44 mEq IV. Will replace PRN and follow on AM labs. Hypophosphatemia: Phos 1.6 on arrival. Replaced with KPhos 44 mEq IV. Will replace PRN and follow on AM labs. HTN: Uncontrolled. - Hydralazine 10mg IVP Q6H for SBP > 160 or DBP > 90 Hx of EtOH abuse: Ethyl alcohol level wnl. Patient reports last drink over 2 years ago. Alcoholic cirrhosis of liver: Observed on CT imaging 01/18 Prohylaxis: Heparin SubQ Diet: NPO Dispo: Transfer to [facility] pending bed availability - Time Spent with Patient Total time spent is greater than 50% in coordination of care (as documented) at patient's floor/unit and/or counseling patient: less than 15 minutes Plan of Care Discussed with: patient Internal Medicine: Result - Labs CBC & Chem 7: 01/21/19 02:33 01/21/19 02:33 Labs: Short CBC 01/20/19 01/21/19 Range/Units 04:55 02:33 WBC 21.8 H 23.3 H (4.3-11.1) K/mcL Hgb 13.6 13.3 (12.9-16.9) g/dL Hct 38.7 37.7 (37.5-50.1) % Plt Count 654 H 671 H (140-400) K/mcL Neutrophils # 16.1 H (1.6-8.9) K/mcL BMP 01/20/19 01/20/19 01/21/19 08:52 20:11 02:33 Sodium 133 L 134 L Potassium 3.3 L 3.4 L 3.2 L Chloride 96 L 98 Carbon Dioxide 20 L 18 L BUN 9 6 Creatinine 0.78 0.66 L Glucose 99 92 Calcium 8.7 8.6 Liver Function 01/21/19 Range/Units 02:33 Total Bilirubin 1.0 (0.3-1.0) mg/dL Direct Bilirubin 0.6 H (0.0-0.2) mg/dL AST 50 H (13-39) Units/L ALT 24 (7-52) Units/L Alkaline Phosphatase 237 H (34-104) Units/L Albumin 3.2 L (3.5-5.7) g/dL - ABG Interpretation ABG results: PT/INR, D-dimer PT 20.7 Seconds (9.4-12.1) H 01/20/19 04:55 Consult Discharge Plan - Plan Referrals: Sara Garcia MD [Primary Care Provider] - 01/29/19 11:00 am <Jean Paul Sy - Last Filed: 01/21/19 18:17> Hospitalist Progress Note - Encounter Date of Encounter: 01/21/19 Internal Medicine: Result - Labs CBC & Chem 7: 01/21/19 02:33 01/21/19 02:33 - Attending Attestation Patient seen and examined independently, including review of objective data including labs. I agree with plan of care as documented above by the resident with the following comments: Pt p/w abd pain, lipase 200, CT suspicious for acute on chronic pancreatitis. Panc duct dilation concerning for possible stone and local GI rec transfer to [facility] for ERCP and stenting. Does have WBC ~20 and urine culture growing klebsiella, and thus pt started on rocephin. Pt is using frequent pain meds and remains relatively comfortable after doses. Continue fluids and awaiting transfer.
[2019-01-21] MEDS: cefTRIAXone 1,000 MG in Water for inj. (sterile) 20 ML 10 ML IVP SCH (18:02)
[2019-01-22] MEDS: Ondansetron 4 MG/2 ML VIAL IVP PRN ×3 (00:06→12:02)
[2019-01-22] MEDS: *HR* HYDROmorphone (PF) 1 MG/ML SYRINGE IVP PRN ×4 (02:53→11:59)
[2019-01-22 03:01] LABS: Mean Platelet Volume 9.9 fL (9.4-12.4); Platelet Count 670 K/mcL (140-400); Red Cell Distribution Width 17.1 % (11.5-14.5)
[2019-01-22 03:02] LABS: Hematocrit 36.9 % (37.5-50.1); Hemoglobin 12.9 g/dL (12.9-16.9); Mean Corpuscular Hemoglobin 32.4 pg (28.0-33.3); Mean Corpuscular Volume 92.7 fL (83.0-100.0); Red Blood Count 3.98 M/mcL (4.19-5.50)
[2019-01-22 03:16] LABS: Alanine Aminotransferase 39 Units/L (7-52); Albumin 2.9 g/dL (3.5-5.7); Albumin/Globulin Ratio 0.9 (1.1-2.2); Alkaline Phosphatase 205 Units/L (34-104); Aspartate Amino Transferase 101 Units/L (13-39); BUN/Creatinine Ratio 7 (6-26); Bilirubin,Direct 0.7 mg/dL (0.0-0.2); Bilirubin,Indirect 0.6 mg/dL (0.0-1.2); Bilirubin,Total 1.3 mg/dL (0.3-1.0); Blood Urea Nitrogen 4 mg/dL (6-20); Calcium 8.1 mg/dL (8.6-10.3); Carbon Dioxide 25 mEq/L (23-29); Chloride 98 mEq/L (98-107); Globulin 3.4 g/dL (2.4-3.5); Glucose 79 mg/dL (70-105); Magnesium 1.7 mg/dL (1.6-2.6); Osmolality,Calculated 276 (280-300); Potassium 3.1 mEq/L (3.5-5.1); Sodium 135 mEq/L (136-145); Total Protein 6.3 g/dL (6.4-8.9); eGFR For Non-African Americans > 60 (> 60)
[2019-01-22] MEDS: 0.9 % Sodium Chloride 1,000 ML IVC SCH ×2 (05:21→05:56)
[2019-01-22] MEDS: *HR* Heparin 5,000 UNIT/ML VIAL SQ SCH (05:55)
[2019-01-22] MEDS ORDERED: Potassium Phosphate 44 MEQ in 0.9 % Sodium Chloride 250 ML IVPB ONE (09:03)
--- NOTE | 2019-01-22 09:06 | Internal Med Progress Note ---
<Nohemi Logan - Last Filed: 01/22/19 20:37> Hospitalist Progress Note - Encounter Date of Encounter: 01/22/19 Time of Encounter: 09:01 - Subjective Interval History: Examined at bedside. Patient reports no events overnight. States his leg and abdominal swelling has not gotten better or worse, it is same as yesterday. Pain is adequately controlled for now, but expresses concern for when his body become tolerant to the pain meds. No fevers, chills, chest pain, difficulty breathing, nausea, vomiting. - Exam Vitals: Temp Pulse Resp BP Pulse Ox 98.7 F 88 16 166/114 97 01/22/19 07:50 01/22/19 07:50 01/22/19 07:50 01/22/19 07:50 01/22/19 07:50 Exam: Gen: NAD, vitals noted HEENT: Normocephalic/atraumatic, EOMI, PERRL, moist mucous membranes Neck: Supple, trachea midline Respiratory: normal respiratory effort, CTAB. No rales, rhonchi, wheezing. Cardiovascular: RRR, + S1/S2, non-pitting peripheral edema Abdomen: distended, no rigidity, tender to palpation LLQ > RLQ, active bowel sounds Extremities: Normal inspection, full range of motion, non-pitting BLE edema Neuro: AAO x 3, cooperative, cranial nerves II -XII grossly intact, no focal neuro deficits, mentating well Skin: Clean, dry, intact, normal color Psych: Cooperative with exam, answers questions appropriately, appropriate mood and affect - Assessment and Plan (1) Pancreatitis Status: Acute Assessment and Plan: Chronic with resolving acute episode. Lipase 119, improved from 1339 on 01/13. Pancreatic duct dilation and possible stone on CT. GI consulted and recommend transfer to [facility] - Tylenol and hydromorphone PRN for pain control, zofran for nausea. - IV fluids to 100mL/hr (2) UTI (urinary tract infection) Status: Acute Assessment and Plan: UTI: UCx 01/18 pos Klebsiella. - Ceftriaxone 1 gm IV nightly started on 01/20 (3) SIRS (systemic inflammatory response syndrome) Status: Acute Assessment and Plan: Meet 3/4 criteria with HR 110, RR 21, WBC 19.2 on admission. WBC increasing, but remains afebrile. UTI vs intra-abdominal infection Treating for UTI with ceftriaxone and transferring to [facility] for further w/u and management (4) Intra-abdominal infection Status: Suspected Assessment and Plan: Suspected d/t abnormal shifting of abdominal pain. GI consulted regarding additional imaging/testing and empiric abx, they recommended transfer to [facility]. Transfer pending bed availability at [facility] (5) Hypophosphatemia Status: Acute Assessment and Plan: Phos 1.6 on arrival. Replaced with KPhos 44 mEq IV. Will replace PRN and follow on AM labs. (6) Hypokalemia Status: Acute Assessment and Plan: K 3.1 on arrival. Replaced with KPhos 44 mEq IV. Will replace PRN and follow on AM labs. (7) Hyponatremia Status: Acute Assessment and Plan: Improving. Na 128 on arrival. Continue IV NS and monitor with AM labs. (8) HTN (hypertension) Status: Chronic Assessment and Plan: Uncontrolled. - Hydralazine 10mg IVP Q6H for SBP > 160 or DBP > 90 (9) Seizure disorder Status: Chronic Assessment and Plan: Continue home depakote 250 mg PO TID (10) Alcohol abuse Status: Chronic Assessment and Plan: Ethyl alcohol level wnl. Patient reports last drink over 2 years ago. (11) Alcoholic cirrhosis of liver Status: Chronic Assessment and Plan: Observed on CT imaging 01/18 - Time Spent with Patient Total time spent is greater than 50% in coordination of care (as documented) at patient's floor/unit and/or counseling patient: less than 15 minutes Plan of Care Discussed with: patient Internal Medicine: Result - Labs CBC & Chem 7: 01/22/19 01:54 01/22/19 01:54 Labs: Short CBC 01/22/19 Range/Units 01:54 WBC 27.2 H (4.3-11.1) K/mcL Hgb 12.9 (12.9-16.9) g/dL Hct 36.9 L (37.5-50.1) % Plt Count 670 H (140-400) K/mcL BMP 01/22/19 01:54 Sodium 135 L Potassium 3.1 L Chloride 98 Carbon Dioxide 25 BUN 4 L Creatinine 0.58 L Glucose 79 Calcium 8.1 L Liver Function 01/22/19 Range/Units 01:54 Total Bilirubin 1.3 H (0.3-1.0) mg/dL Direct Bilirubin 0.7 H (0.0-0.2) mg/dL AST 101 H (13-39) Units/L ALT 39 (7-52) Units/L Alkaline Phosphatase 205 H (34-104) Units/L Albumin 2.9 L (3.5-5.7) g/dL - ABG Interpretation ABG results: PT/INR, D-dimer PT 20.7 Seconds (9.4-12.1) H 01/20/19 04:55 Consult Discharge Plan - Plan Referrals: Sara Garcia MD [Primary Care Provider] - 01/29/19 11:00 am <Manpreet Light - Last Filed: 01/23/19 18:16> Hospitalist Progress Note - Encounter Date of Encounter: 01/22/19 - Exam Vitals: Temp Pulse Resp BP Pulse Ox 98.6 F 77 16 157/102 96 01/22/19 11:11 01/22/19 11:11 01/22/19 11:11 01/22/19 11:11 01/22/19 11:11 - Assessment and Plan (1) Alcohol abuse Status: Chronic (2) HTN (hypertension) Status: Chronic (3) DVT prophylaxis Status: Acute (4) Hypokalemia Status: Acute (5) Pancreatitis Status: Acute (6) Hyponatremia Status: Acute (7) Alcoholic cirrhosis of liver Status: Chronic (8) Seizure disorder Status: Chronic - Time Spent with Patient Total time spent is greater than 50% in coordination of care (as documented) at patient's floor/unit and/or counseling patient: Internal Medicine: Result - Labs CBC & Chem 7: 01/22/19 01:54 01/22/19 01:54 - ABG Interpretation ABG results: PT/INR, D-dimer PT 20.7 Seconds (9.4-12.1) H 01/20/19 04:55 - Attending Attestation I examined this patient and my medical decision-making was reviewed with the Resident Physician on 01/22/19. I agree with the documented findings, disposition and treatment plan as described except to the extent set forth below. Mr Friend has been admitted for acute on chronic pancreatitis. He was evaluated by GI and felt that he needed transferred to tertiary care center for further treatment. At this time he is afebrile but remains in pain. Exam Alert Mod distress due to paint Mucus membranes moist Heart reg No wheeze abd tender in epigastrium Plan D/C to [facility] today. <Nohemi Logan - Last Filed: 01/22/19 20:37> (1) Pancreatitis Qualifiers: Chronicity: chronic Pancreatitis type: alcohol induced Qualified Code(s): K86.0 - Alcohol-induced chronic pancreatitis (2) UTI (urinary tract infection) Qualifiers: Qualified Code(s): N39.0 - Urinary tract infection, site not specified (8) HTN (hypertension) Qualifiers: Hypertension type: essential hypertension Qualified Code(s): I10 - Essential (primary) hypertension (11) Alcoholic cirrhosis of liver Qualifiers: Ascites presence: unspecified Qualified Code(s): K70.30 - Alcoholic cirrhosis of liver without ascites <Manpreet Light - Last Filed: 01/23/19 18:16> (2) HTN (hypertension) Qualifiers: Hypertension type: essential hypertension Qualified Code(s): I10 - Essential (primary) hypertension (5) Pancreatitis Qualifiers: Chronicity: chronic Pancreatitis type: alcohol induced Qualified Code(s): K86.0 - Alcohol-induced chronic pancreatitis (7) Alcoholic cirrhosis of liver Qualifiers: Ascites presence: unspecified Qualified Code(s): K70.30 - Alcoholic cirrhosis of liver without ascites
[2019-01-22 11:12] VITALS: BP 157/102
[2019-01-22 14:48] LABS: AFP Tumor Marker Non-Pregnant 1 ng/mL (0-9)
[2019-01-23 09:55] LABS: F-Actin (sm muscle) Ab IgG 11 Units (0-19)
[2019-01-23 10:03] LABS: ANA IgG by ELISA NONE DETECTED (None Detected); Myeloperoxidase Ab 0 AU/mL (0-19); Serine Protease-3 Antibody 2 AU/mL (0-19)
== END 2019-01-22 12:25 | disposition other institution (70) | DRG 282 ==
LOC: 3BNU 06:54 → EMEROOARM 06:54 → 3BNU 12:35 → SUATTDRO 01-20 13:03
PROVIDERS: ADMIT Internal Medicine Nephrology; ATTEND Internal Medicine

== ENCOUNTER 2019-04-30 12:47 | Inpatient (IN) ==
[2019-04-30] MEDS ORDERED: Ondansetron 4 MG/2 ML VIAL IVP ONE (13:02)
[2019-04-30] MEDS ORDERED: Isovue-370 500 ML BOTTLE IVP ONE (13:02)
--- NOTE | 2019-04-30 13:03 | Emergency Department Note ---
Disposition Clinical Impression: Pulmonary nodule Pancreatitis Qualifiers: Chronicity: acute Pancreatitis type: alcohol induced Acute pancreatitis complication: unspecified Qualified Code(s): K85.20 - Alcohol induced acute pancreatitis without necrosis or infection Disposition: Admitted As Inpatient Condition: Fair Time of Disposition: 16:19 General Adult HPI - General Chief complaint: ED Chest Pain Stated complaint: cp Time Seen by Provider: 04/30/19 13:01 Source: patient Mode of arrival: ambulatory Limitations: no limitations Nursing Notes Reviewed: Yes Vital Signs Reviewed: Yes - History of Present Illness HPI Narrative: Patient is a 48-year-old male presenting with epigastric abdominal pain. Patient with known history of pancreatitis in the past, chronic alcoholic, has required stent placement secondary to obstructing stones in the biliary tract. These procedures were performed at [facility] in January 2019. Patient currently presenting with one hour prior to arrival midepigastric abdominal pain, stiff describes this as pain 6 out of 10, sharp shooting in nature, constant radiating at times and his back with associated nausea and multiple episodes of nonbloody nonbilious vomiting. States he is slightly diaphoretic without fevers or chills. No urinary changes. No diarrhea or constipation. Patient states that he has been drinking, there is concern that he will go into withdrawal, he states that he drinks every 10 minutes and without a drink it is possible for him to go with it crawls within the hour. He does also have history of a seiz ure disorder for which he takes Depakote, he was unable to keep this down secondary to vomiting. Pain Scale: 6 - Related Data Home Medications Medication Instructions Recorded Confirmed Citalopram Hydrobromide 20 mg PO DAILY 01/19/19 04/30/19 [Citalopram HBr] Divalproex (24 HR) [Depakote ER 250 mg PO TID 01/19/19 04/30/19 (24 HR)] Folic Acid 1 mg PO DAILY 01/19/19 04/30/19 Gabapentin [Neurontin] 100 mg PO BID 01/19/19 04/30/19 Lisinopril [Zestril] 5 mg PO DAILY 01/19/19 04/30/19 Nadolol 20 mg PO DAILY 01/19/19 04/30/19 Thiamine HCl [Vitamin B-1] 100 mg PO DAILY 01/19/19 04/30/19 amLODIPine [Norvasc] 5 mg PO DAILY 01/19/19 04/30/19 Magnesium Oxide [Magnesium] 400 mg PO BID 04/30/19 04/30/19 Potassium 198 mg PO BID 04/30/19 04/30/19 Allergies Allergy/AdvReac Type Severity Reaction Status Date / Time hydrocodone [From Vicodin] Allergy Rash Verified 01/19/19 17:16 oxycodone [From Percocet] Allergy Rash Verified 01/19/19 17:16 narcotics AdvReac Gastrointestinal Uncoded 01/19/19 17:16 Upset All systems ED: reviewed and negative except as stated. Review of Systems: As Per HPI Constitutional: Denies: fever, chills ENT ED: Denies: congestion Cardiovascular: Denies: chest pain, palpitations, syncope Respiratory: Denies: cough, dyspnea, wheezes Gastrointestinal: Reports: abdominal pain, nausea, vomiting. Denies: diarrhea, hematemesis, melena, hematochezia Genitourinary: Denies: urgency Musculoskeletal: Denies: back pain Integumentary: Denies: rash Neurological: Reports: weakness. Denies: headache, numbness, paresthesias, confusion Endocrine: Denies: fatigue Past Medical History - Past Medical History Medical history: Reports: cirrhosis, hypertension, seizures Surgical history: Reports: splenectomy, other Psychiatric history: Reports: depression - Social History Smoking Status: Former smoker Smokeless Tobacco Status: No Alcohol use: Reports: heavy, recent Drug use: Reports: none Physical Exam - General General appearance: alert, anxious - Head Head exam: atraumatic, normocephalic, normal inspection - Eye Eye exam: Present: normal appearance, PERRL, EOMI - ENT ENT exam: normal exam, normal oropharynx, mucous membranes moist - Neck Neck exam: Present: normal inspection, full ROM, trachea midline - Chest Chest inspection: Present: normal inspection, symmetric chest wall rise - Respiratory Respiratory exam: Present: normal lung sounds bilaterally - Cardiovascular Cardiovascular exam: Present: regular rate - Abdominal Exam Abdominal exam: Present: soft, tenderness (Significant tenderness in the midepigastric region with no guarding or rebound) - Extremities Exam Extremities exam: Present: normal inspection, full ROM. Absent: tenderness, pedal edema - Expanded Lower Extremity Exam Neurovascular/Tendon exam: Absent: motor deficit, sensory deficit, tendon deficit - Back Exam Back exam: Present: normal inspection, full ROM. Absent: tenderness - Neurological Exam Neurological exam: Present: alert, oriented X3 - Psychiatric Psychiatric exam: Present: normal affect, normal mood - Skin Skin exam: Present: warm, dry, intact, normal color Course Vital Signs Temperature 97.6 F 04/30/19 12:51 Pulse Rate 68 04/30/19 12:51 Respiratory Rate 19 04/30/19 12:51 Blood Pressure 146/108 04/30/19 12:51 O2 Sat by Pulse Oximetry 97 04/30/19 12:51 Temperature 97.6 F 04/30/19 12:51 Pulse Rate 71 04/30/19 16:00 Respiratory Rate 13 04/30/19 16:00 Blood Pressure 158/106 04/30/19 16:00 O2 Sat by Pulse Oximetry 96 04/30/19 16:00 Oxygen Delivery Oxygen Delivery Room Air Medical Decision Making - MDM Narrative Medical decision making narrative: Patient is a 48-year-old male who is presenting with epigastric abdominal pain. Patient with known history of pancreatitis in the past requiring stent placement. 2 alcoholism. On arrival, patient is actively vomiting, with epigastric pain. X-ray work was performed which shows elevated leukocytosis with a lipase elevated in the 600s. CT of the abdomen and pelvis does show signs of acute pancreatitis with most likely chronic pancreatitis. Patient was given a total of 2 L of fluid, 1 in route via EMS and one further liter here in the ER. Patient was also given pain medications as well as antinausea medicine. On reevaluation, patient states that his nausea is to be feeling improved. He also has a known history of seizure disorder with alcohol withdrawal and did delirium tremens. He will need to be on CIWA protocol and seizure protocol. I did discuss the findings with the patient of pancreatitis as well as pulmonary nodule that will require outpatient follow-up, patient will be admitted this point in time for acute pancreatitis. Patient agrees with disposition. - Medical Records Medical records reviewed: Yes I reviewed the patient's medical records. - Lab Data Lab results reviewed: Yes I reviewed the patient's lab results. Result diagrams: 04/30/19 13:31 04/30/19 13:31 Lab Results 04/30/19 04/30/19 04/30/19 Range/Units 13:31 13:31 13:31 WBC 11.4 H (4.3-11.1) K/mcL RBC 4.19 (4.19-5.50) M/mcL Hgb 14.1 (12.9-16.9) g/dL Hct 40.7 (37.5-50.1) % MCV 97.1 (83.0-100.0) fL MCH 33.7 H (28.0-33.3) pg MCHC 34.6 (31.6-35.5) g/dL RDW 17.2 H (11.5-14.5) % Plt Count 142 (140-400) K/mcL MPV 11.3 (9.4-12.4) fL Immature Gran % 0.5 (0-4) % Seg Neutrophils % 82.7 % Lymphocytes % 8.9 % Monocytes % 7.4 % Eosinophils % 0.1 % Basophils % 0.4 % Neutrophils # 9.4 H (1.6-8.9) K/mcL Lymphocytes # 1.0 (0.6-4.6) K/mcL Monocytes # 0.8 (0.0-1.3) K/mcL Eosinophils # 0.0 (0.0-0.6) K/mcL Basophils # 0.1 (0.0-0.2) K/mcL Nucleated RBCs/100 WBC 0.2 H (0) /100 WBC Sodium 140 (136-145) mEq/L Potassium 3.2 L (3.5-5.1) mEq/L Chloride 104 (98-107) mEq/L Carbon Dioxide 22 L (23-29) mEq/L BUN 6 (6-20) mg/dL Creatinine 1.30 (0.70-1.30) mg/dL Est GFR ( Amer) > 60 (> 60) Est GFR (Non-Af Amer) 59 L (> 60) BUN/Creatinine Ratio 5 L (6-26) Glucose 135 H (70-105) mg/dL Calculated Osmolality 290 (280-300) Lactic Acid 2.1 (0.5-2.2) mmol/L Calcium 7.6 L (8.6-10.3) mg/dL Troponin I < 0.03 (< 0.04) ng/mL Lipase 685 H (11-82) Units/L Urine Color (Yellow) Urine Clarity (Clear) Urine pH (5.0-8.0) pH Units Ur Specific [place] (1.010-1.025) Urine Protein (Neg-Trace) mg/dL Urine Glucose (UA) (Normal) mg/dL Urine Ketones (Negative) mg/dL Urine Blood (Negative) Urine Nitrite (Negative) Urine Bilirubin (Negative) Urine Urobilinogen (Normal) mg/dL Ur Leukocyte Esterase (Negative) Urine Microscopic RBC (0-3) per hpf Urine Microscopic WBC (0-3) per hpf Ur Squamous Epith Cells (None-Few) per lpf Ur Transition Epith Cell (None-Few) per hpf Urine Bacteria (None-Few) per hpf Hyaline Casts (None-Few) per lpf Urine Mucus (Few) 04/30/19 Range/Units 14:07 WBC (4.3-11.1) K/mcL RBC (4.19-5.50) M/mcL Hgb (12.9-16.9) g/dL Hct (37.5-50.1) % MCV (83.0-100.0) fL MCH (28.0-33.3) pg MCHC (31.6-35.5) g/dL RDW (11.5-14.5) % Plt Count (140-400) K/mcL MPV (9.4-12.4) fL Immature Gran % (0-4) % Seg Neutrophils % % Lymphocytes % % Monocytes % % Eosinophils % % Basophils % % Neutrophils # (1.6-8.9) K/mcL Lymphocytes # (0.6-4.6) K/mcL Monocytes # (0.0-1.3) K/mcL Eosinophils # (0.0-0.6) K/mcL Basophils # (0.0-0.2) K/mcL Nucleated RBCs/100 WBC (0) /100 WBC Sodium (136-145) mEq/L Potassium (3.5-5.1) mEq/L Chloride (98-107) mEq/L Carbon Dioxide (23-29) mEq/L BUN (6-20) mg/dL Creatinine (0.70-1.30) mg/dL Est GFR ( Amer) (> 60) Est GFR (Non-Af Amer) (> 60) BUN/Creatinine Ratio (6-26) Glucose (70-105) mg/dL Calculated Osmolality (280-300) Lactic Acid (0.5-2.2) mmol/L Calcium (8.6-10.3) mg/dL Troponin I (< 0.04) ng/mL Lipase (11-82) Units/L Urine Color [place] A (Yellow) Urine Clarity Cloudy A (Clear) Urine pH 5.0 (5.0-8.0) pH Units Ur Specific [place] 1.025 (1.010-1.025) Urine Protein 30 H (Neg-Trace) mg/dL Urine Glucose (UA) Normal (Normal) mg/dL Urine Ketones Trace H (Negative) mg/dL Urine Blood Negative (Negative) Urine Nitrite Negative (Negative) Urine Bilirubin Small H (Negative) Urine Urobilinogen Normal (Normal) mg/dL Ur Leukocyte Esterase Trace H (Negative) Urine Microscopic RBC 5-15 H (0-3) per hpf Urine Microscopic WBC 5-15 H (0-3) per hpf Ur Squamous Epith Cells Many H (None-Few) per lpf Ur Transition Epith Cell Few (None-Few) per hpf Urine Bacteria None Seen (None-Few) per hpf Hyaline Casts Many H (None-Few) per lpf Urine Mucus Many H (Few) - Radiology Data Radiology results reviewed: Yes I reviewed the patient's radiology results. Abdomen/Pelvis CT 04/30/19 13:02 IMPRESSION: Findings are compatible with residual or recurrent pancreatitis superimposed upon chronic pancreatitis. The degree of inflammatory stranding about the pancreas is decreased as compared to prior exam dated 01/18/2019. Hepatic cirrhosis. 1.2 cm ground-glass nodule along the plane of the horizontal fissure. Follow-up recommendations are as below. RECOMMENDATIONS: Fleischner Society guidelines for follow-up and management of incidentally detected subsolid pulmonary nodules: Solitary ground glass nodule < 6 mm - No routine follow-up. > than or equal to 6 mm - CT at 6-12 months to confirm persistence, then CT every 2 years until 5 years. Solitary part-solid nodules < 6 mm - No routine follow-up. > than or equal to 6 mm - CT at 3-6 to confirm persistence. If unchanged and solid component remains less than 6 mm, annual CT should be performed for 5 years. Multiple subsolid nodules < 6 mm - CT at 3-6 months. If stable, consider CT at 2 and 4 years. > than or equal to 6 mm - CT at 3-6 months. Subsequent management based on the most suspicious nodule(s). Radiology 2017 http://pubs.rsna.org/doi/full/[email or web address] D/ / Boy Saleem MD / Boy Saleem MD Interpreting Provider: Boy Saleem MD - EKG Data EKG #1 EKG attestation: Yes I reviewed and interpreted this EKG. EKG results narrative: EKG performed at 1256 with ventricular rate of 66 with regular rhythm, left axis deviation, no ST segment elevation, depression, there is nonspecific T-wave changes. When compared to old EKG performed on 01/19/2019, appears completely unchanged. Attestation Statement - Attestation Attestation: I, Reggie Vernon, examined this patient and my medical decision-making was reviewed with the SPLASH LINE OPERATOR/PA/Advanced Practice Nurse/Resident Physician. I agree with the documented findings, disposition and treatment plan as described except to the extent set forth below. 48-year-old male presents emergency Department with concerns of epigastric abdominal pain. Patient states this feels similar to his previous angry Julio. Patient has had previous evaluations for similar pain which was described as alcoholic pancreatitis. Patient states that he was sober for 2 years however he relapsed within the past month and half. Patient denies fever, chills, shortness of breath, palpitations, syncope. He denies chest pain to me in the emergency department. He states that it is more epigastric. The patient has had multiple episodes of nausea and vomiting and has been unable to keep down by mouth intake at home. Lipase is elevated. Patient has a CT which shows findings consistent with acute pancreatitis. Patient was updated regarding imaging and lab results. They feel comfortable with the plan for admission to hospital for continuation of care.
[2019-04-30] MEDS ORDERED: *HR* LORazepam 2 MG/ML VIAL IVP PRN (13:15)
[2019-04-30] MEDS ORDERED: *HR* FentaNYL (PF) 100 MCG/2 ML VIAL IVP ONE ×2 (13:15→15:46)
[2019-04-30] MEDS ORDERED: 0.9 % Sodium Chloride 1,000 ML IVC ONE (13:15)
[2019-04-30 13:45] LABS: Basophils # 0.1 K/mcL (0.0-0.2); Basophils % 0.4 %; Eosinophils % 0.1 %; Hematocrit 40.7 % (37.5-50.1); Hemoglobin 14.1 g/dL (12.9-16.9); Immature Granulocytes % 0.5 % (0-4); Lymphocytes % 8.9 %; Mean Corpuscular HGB Conc 34.6 g/dL (31.6-35.5); Mean Corpuscular Hemoglobin 33.7 pg (28.0-33.3); Mean Corpuscular Volume 97.1 fL (83.0-100.0); Mean Platelet Volume 11.3 fL (9.4-12.4); Monocytes # 0.8 K/mcL (0.0-1.3); Monocytes % 7.4 %; Neutrophils # 9.4 K/mcL (1.6-8.9); Nucleated Red Blood Cells 0.2 /100 WBC (0); Platelet Count 142 K/mcL (140-400); Red Blood Count 4.19 M/mcL (4.19-5.50); Red Cell Distribution Width 17.2 % (11.5-14.5); Segmented Neutrophils % 82.7 %; White Blood Count 11.4 K/mcL (4.3-11.1)
[2019-04-30] MEDS: *HR* LORazepam 2 MG/ML VIAL IVP PRN (13:57)
[2019-04-30 14:17] LABS: Bilirubin,Urine Small (Negative); Blood,Urine Negative (Negative); Clarity,Urine Cloudy (Clear); Color,Urine Orange (Yellow); Glucose,Urine (UA) Normal (Normal); Ketones,Urine Trace mg/dL (Negative); Leukocyte Esterase,Urine Trace (Negative); Nitrite,Urine Negative (Negative); Protein,Urine 30 mg/dL (Neg-Trace); Specific Gravity,Urine 1.025 (1.010-1.025); Urobilinogen,Urine Normal (Normal)
[2019-04-30 14:21] LABS: BUN/Creatinine Ratio 5 (6-26); Blood Urea Nitrogen 6 mg/dL (6-20); Calcium 7.6 mg/dL (8.6-10.3); Carbon Dioxide 22 mEq/L (23-29); Chloride 104 mEq/L (98-107); Glucose 135 mg/dL (70-105); Lipase 685 Units/L (11-82); Osmolality,Calculated 290 (280-300); Potassium 3.2 mEq/L (3.5-5.1); Sodium 140 mEq/L (136-145); Troponin I < 0.03 ng/mL (< 0.04); eGFR For African Americans > 60 (> 60); eGFR For Non-African Americans 59 (> 60)
[2019-04-30 14:22] LABS: Bacteria,Urine None Seen per hpf (None-Few); Squamous Epithelial Cell,Urine Many per lpf (None-Few)
[2019-04-30 14:40] LABS: Hyaline Casts,Urine Many per lpf (None-Few)
[2019-04-30 14:41] LABS: Mucus,Urine Many (Few); Transitional Epi Cells,Urine Few per hpf (None-Few)
[2019-04-30] MEDS: *HR* Promethazine 25 MG/ML VIAL IVP PRN ×2 (15:16→21:58)
[2019-04-30] MEDS ORDERED: Naloxone 0.4 MG/ML INJ IVP PRN (17:48)
[2019-04-30] MEDS ORDERED: *HR* OxyCODONE Immed Rel 5 MG TABLET PO PRN (17:52)
[2019-04-30] MEDS ORDERED: 0.9 % Sodium Chloride 1,000 ML IVC SCH (18:00)
[2019-04-30 18:17] LABS: INR 1.2; Prothrombin Time 13.8 Seconds (9.4-12.1)
[2019-04-30 18:28] LABS: Albumin 3.8 g/dL (3.5-5.7); Bilirubin,Direct 0.7 mg/dL (0.0-0.2); Bilirubin,Indirect 0.5 mg/dL (0.0-1.2); Bilirubin,Total 1.2 mg/dL (0.3-1.0); Globulin 3.7 g/dL (2.4-3.5); Total Protein 7.5 g/dL (6.4-8.9)
--- NOTE | 2019-04-30 20:18 | Internal Med History&Physical ---
<Radha Avendaño I - Last Filed: 04/30/19 20:16> Date of Encounter: 04/30/19 Time of Encounter: 04:30 Internal Medicine - H&P: HPI History of present illness: Mr. Friend is a 48 year old male with PMH of pancreatitis , alcohol abuse alcoholic cirrhosis, hypertension, seizures presented with epigastric pain one hour prior to arrival it is midepigastric abdominal pain, 6 out of 10, sharp shooting in nature, constant radiating to his back with associated nausea and multiple episodes of nonbloody greenish vomiting. States he is slightly diaphoretic without fevers or chills. No urinary changes. No diarrhea or constipation. he also state he is mildly dyspnic with no chest pain . Patient has prior history of pancreatitis required stent placement secondary to obstructing stones in the biliary tract. These procedures were performed at [facility] in January 2019. His last drink was this morning about one hour before his epigastric pain .He also has a known history of seizure disorder with alcohol withdrawal and did delirium tremens. On arrival, patient is actively vomiting, with epigastric pain. CBC AND BMP were performed which shows elevated leukocytosis with a lipase elevated in the 600s. CT of the abdomen and pelvis does show signs of acute pancreatitis on chronic pancreatitis. Patient was given a total of 2 L of fluid, 1 in route via EMS and one further liter here in the ER. WE started him on maintenance 0.9 NS at rate of 75ml/hr Patient was also given pain medications with SL oxycodone as well as zofran and PPI .he is also on CIWA protocol plus librium . on arrival vitals showes T 97, HR68, RR 19 ,BP 146/108 , WBC 11,PT 13.8,K3.2,AST 350.[id number],LIPASE 685 . Past Med Surg Social Fam HX - Past Medical History Medical history: arthritis, cirrhosis, CVA, hypertension, liver disease, my ocardial infarction, seizures Additional medical history: osteoarthritis. Degenerative Disc Disease. HX pancreatitis. alcoholic hepatitis. ITP s/p spleenectomy Psychiatric history: anxiety, depression - Past Surgical History Surgical History: splenectomy, other Additional surgical history: cervical fusion. lumbar discectomy. Right ACL repair. splenectomy - Social History Smoking Status: Former smoker Packs per day: 1 Smokeless Tobacco Status: Yes (Vape) Alcohol use: heavy, recent Drug use: none - Family History Father Adopted: No Family Member Ethnicity: Non- Living Status: Still Living Hx Family Cancer: Yes (skin) Hx Family GI Disorders: No Hx Family Genitourinary Disorders: No Hx Family Endocrine Disorder: Yes (Parkinsons disease) Hx Family Musculoskeletal Disorders: No Hx Family Neuromuscular Disorders: No Hx Family Neurologic Disorders: No Hx Family HEENT Disorders: No Hx Family Autoimmune Disorders: No Hx Family Reproductive Disorders: No Hx Family Psychosocial Disorders: No Hx Family Medical Disorders: No Mother History Unknown: Yes Adopted: No Living Status: Still Living Hx Family Cardiac Disorders: Yes Hx Family Cancer: Yes (lung, breast, skin, brain) Hx Family GI Disorders: Yes (Mother-colon removal re-section) Hx Family Genitourinary Disorders: No Hx Family Endocrine Disorder: No Hx Family Musculoskeletal Disorders: No Hx Family Neuromuscular Disorders: No Hx Family Neurologic Disorders: No Hx Family HEENT Disorders: No Hx Family Autoimmune Disorders: No Hx Family Reproductive Disorders: No Hx Family Psychosocial Disorders: No Hx Family Medical Disorders: No Internal Medicine - H&P: Meds Citalopram Hydrobromide [Citalopram HBr] 20 mg PO DAILY 01/19/19 [History] Divalproex (24 HR) [Depakote ER (24 HR)] 250 mg PO TID 01/19/19 [History] Folic Acid 1 mg PO DAILY 01/19/19 [History] Gabapentin [Neurontin] 100 mg PO BID 01/19/19 [History] Lisinopril [Zestril] 5 mg PO DAILY 01/19/19 [History] Nadolol 20 mg PO DAILY 01/19/19 [History] Thiamine HCl [Vitamin B-1] 100 mg PO DAILY 01/19/19 [History] amLODIPine [Norvasc] 5 mg PO DAILY 01/19/19 [History] Magnesium Oxide [Magnesium] 400 mg PO BID 04/30/19 [History] Potassium 198 mg PO BID 04/30/19 [History] Allergy/AdvReac Type Severity Reaction Status Date / Time hydrocodone [From Vicodin] Allergy Rash Verified 01/19/19 17:16 oxycodone [From Percocet] Allergy Rash Verified 01/19/19 17:16 narcotics AdvReac Gastrointestinal Uncoded 01/19/19 17:16 Upset All Systems PM: A 10-system review of systems was performed and is negative for pertinent findings except as documented above in the HPI. Review of systems: Constitutional: Denies: fever, chills ENT ED: Denies: congestion Cardiovascular: Denies: chest pain, palpitations, syncope Respiratory: Denies: cough, dyspnea, wheezes Gastrointestinal: Reports: abdominal pain, nausea, vomiting. Denies: diarrhea, hematemesis, melena, hematochezia Genitourinary: Denies: urgency Musculoskeletal: Denies: back pain Integumentary: Denies: rash Neurological: Reports: weakness. Denies: headache, numbness, paresthesias, confusion Endocrine: Denies: fatigue - Constitutional Constitutional: anorexia, malaise - Cardiovascular Additional comments: denies : - Constitutional Vitals: Temp Pulse Resp BP Pulse Ox 98.2 F 66 16 177/108 93 04/30/19 17:48 04/30/19 17:48 04/30/19 17:48 04/30/19 17:48 04/30/19 17:48 Exam: General - Alert and oriented x 3, IN MILD distress HEENT - Conjunctiva clear, eye un icterus no nasal or oral mucosal lesions/ulcerations , Heme/Lymph - No cervical or supraclavicular lymph node enlargement or tenderness. No pallor. Heart - S1S2 regular in rate and rhythm without murmurs, clicks or rubs. No peripheral edema. Radial pulses equal and strong Lungs - Unlabored breathing,normal breath sound bilaterally Gastrointestinal - Soft, epigastric tenderness , nondistended. Unable to palpate any hepatosplenomegaly Neurological - Gait normal, muscle strength 5/5 in all four extremities, sensation intact Musculoskeletal - Full ROM, no joint tenderness psych : normal mood and behaviour Internal Med - H&P Results - Labs CBC & Chem 7: 04/30/19 13:31 04/30/19 13:31 Labs: Short CBC 04/30/19 Range/Units 13:31 WBC 11.4 H (4.3-11.1) K/mcL Hgb 14.1 (12.9-16.9) g/dL Hct 40.7 (37.5-50.1) % Plt Count 142 (140-400) K/mcL Neutrophils # 9.4 H (1.6-8.9) K/mcL BMP 04/30/19 13:31 Sodium 140 Potassium 3.2 L Chloride 104 Carbon Dioxide 22 L BUN 6 Creatinine 1.30 Glucose 135 H Calcium 7.6 L Cardiac Enzymes 04/30/19 Range/Units 13:31 Troponin I < 0.03 (< 0.04) ng/mL Liver Function 04/30/19 Range/Units 17:59 Total Bilirubin 1.2 H (0.3-1.0) mg/dL Direct Bilirubin 0.7 H (0.0-0.2) mg/dL AST 357 H (13-39) Units/L ALT 120 H (7-52) Units/L Alkaline Phosphatase 191 H (34-104) Units/L Albumin 3.8 (3.5-5.7) g/dL Urine 04/30/19 Range/Units 14:07 Urine Color [place] A (Yellow) Urine Clarity Cloudy A (Clear) Urine pH 5.0 (5.0-8.0) pH Units Ur Specific [place] 1.025 (1.010-1.025) Urine Protein 30 H (Neg-Trace) mg/dL Urine Glucose (UA) Normal (Normal) mg/dL - Impressions ITS Impressions Abdomen/Pelvis CT 04/30/19 13:02 IMPRESSION: Findings are compatible with residual or recurrent pancreatitis superimposed upon chronic pancreatitis. The degree of inflammatory stranding about the pancreas is decreased as compared to prior exam dated 01/18/2019. Hepatic cirrhosis. 1.2 cm ground-glass nodule along the plane of the horizontal fissure. Follow-up recommendations are as below. RECOMMENDATIONS: Fleischner Society guidelines for follow-up and management of incidentally detected subsolid pulmonary nodules: Solitary ground glass nodule < 6 mm - No routine follow-up. > than or equal to 6 mm - CT at 6-12 months to confirm persistence, then CT every 2 years until 5 years. Solitary part-solid nodules < 6 mm - No routine follow-up. > than or equal to 6 mm - CT at 3-6 to confirm persistence. If unchanged and solid component remains less than 6 mm, annual CT should be performed for 5 years. Multiple subsolid nodules < 6 mm - CT at 3-6 months. If stable, consider CT at 2 and 4 years. > than or equal to 6 mm - CT at 3-6 months. Subsequent management based on the most suspicious nodule(s). Radiology 2017 http://pubs.rsna.org/doi/full/10.1148/radiol.[email or web address] D/ / Boy Saleem MD / Boy Saleem MD Interpreting Provider: Boy Saleem MD - Assessment and Plan (1) Pancreatitis, acute Current Visit: No Status: Resolved Assessment and plan: Patient presented with epigastric pain , pancreatitis mostly due to alcohol abuse ,also it could be due to stone on arrival vitals showes T 97, HR68, RR 19 ,BP 146/108 WBC 11 ,PT 13.8 ,K 3.2, LFT : AST 350, XMA157, MQE942 ,LIPASE [address] of the abdomen and pelvis Findings are compatible with residual or recurrent pancreatitis superimposed upon chronic pancreatitis. The degree of inflammatory stranding about the pancreas is decreased as compared to prior exam dated 01/18/2019. Patient was given a total of 2 L of fluid, 1 in route via EMS and one further liter here in the ER. PLAN : we started him on maintenance 0.9% NS at rate of 75ml/hr NPO He is on SL oxycodone as well as zofran and PPI GI is consulted Qualifiers: Pancreatitis type: alcohol induced Qualified Code(s): K85.20 - Alcohol induced acute pancreatitis without necrosis or infection (2) Alcohol abuse Current Visit: No Status: Chronic Assessment and plan: Has a known history of alcohol abuse , also has a known history of seizure disorder with alcohol withdrawal and did delirium tremens he is on CIWA protocol plus librium plus his valporic acid continue montoring vitals continue electrolyte monitoring (3) HTN (hypertension) Current Visit: No Status: Chronic Assessment and plan: this is achronic condition we resumed his home norvasc and lisinopril Qualifiers: Hypertension type: essential hypertension Qualified Code(s): I10 - Essential (primary) hypertension (4) Alcoholic cirrhosis of liver Current Visit: No Status: Chronic Assessment and plan: this is a chronic condition his AST 350. MRQ021. NSF272 he is not in exacerbation GI is consulted . Qualifiers: Ascites presence: unspecified Qualified Code(s): K70.30 - Alcoholic cirrhosis of liver without ascites (5) Seizure disorder Current Visit: No Status: Chronic Assessment and plan: we resumed his home valporic acid plus he is on librium and CIWA protocol continue montoring vitals continue electrolyte monitoring (6) Hypocalcemia Current Visit: Yes Status: Acute (7) Hypocalcemia Current Visit: Yes Status: Acute - Time Spent With Patient Total time spent is greater than 50% in coordination of care (as documented) at patient's floor/unit and/or counseling patient: <Stephany Clark - Last Filed: 04/30/19 21:24> Date of Encounter: 04/30/19 Internal Medicine - H&P: HPI History of present illness: Mr. Friend is a 48 year old male All Systems PM: A 10-system review of systems was performed and is negative for pertinent findi ngs except as documented above in the HPI. - Constitutional Vitals: Temp Pulse Resp BP Pulse Ox 98.2 F 66 16 177/108 93 04/30/19 17:48 04/30/19 17:48 04/30/19 17:48 04/30/19 17:48 04/30/19 17:48 Internal Med - H&P Results - Labs CBC & Chem 7: 04/30/19 13:31 04/30/19 13:31 Labs: Short CBC 04/30/19 Range/Units 13:31 WBC 11.4 H (4.3-11.1) K/mcL Hgb 14.1 (12.9-16.9) g/dL Hct 40.7 (37.5-50.1) % Plt Count 142 (140-400) K/mcL Neutrophils # 9.4 H (1.6-8.9) K/mcL BMP 04/30/19 13:31 Sodium 140 Potassium 3.2 L Chloride 104 Carbon Dioxide 22 L BUN 6 Creatinine 1.30 Glucose 135 H Calcium 7.6 L Cardiac Enzymes 04/30/19 Range/Units 13:31 Troponin I < 0.03 (< 0.04) ng/mL Liver Function 04/30/19 Range/Units 17:59 Total Bilirubin 1.2 H (0.3-1.0) mg/dL Direct Bilirubin 0.7 H (0.0-0.2) mg/dL AST 357 H (13-39) Units/L ALT 120 H (7-52) Units/L Alkaline Phosphatase 191 H (34-104) Units/L Albumin 3.8 (3.5-5.7) g/dL Urine 04/30/19 Range/Units 14:07 Urine Color [place] A (Yellow) Urine Clarity Cloudy A (Clear) Urine pH 5.0 (5.0-8.0) pH Units Ur Specific [place] 1.025 (1.010-1.025) Urine Protein 30 H (Neg-Trace) mg/dL Urine Glucose (UA) Normal (Normal) mg/dL - Impressions ITS Impressions Abdomen/Pelvis CT 04/30/19 13:02 IMPRESSION: Findings are compatible with residual or recurrent pancreatitis superimposed upon chronic pancreatitis. The degree of inflammatory stranding about the pancreas is decreased as compared to prior exam dated 01/18/2019. Hepatic cirrhosis. 1.2 cm ground-glass nodule along the plane of the horizontal fissure. Follow-up recommendations are as below. RECOMMENDATIONS: Fleischner Society guidelines for follow-up and management of incidentally detected subsolid pulmonary nodules: Solitary ground glass nodule < 6 mm - No routine follow-up. > than or equal to 6 mm - CT at 6-12 months to confirm persistence, then CT every 2 years until 5 years. Solitary part-solid nodules < 6 mm - No routine follow-up. > than or equal to 6 mm - CT at 3-6 to confirm persistence. If unchanged and solid component remains less than 6 mm, annual CT should be performed for 5 years. Multiple subsolid nodules < 6 mm - CT at 3-6 months. If stable, consider CT at 2 and 4 years. > than or equal to 6 mm - CT at 3-6 months. Subsequent management based on the most suspicious nodule(s). Radiology 2017 http://pubs.rsna.org/doi/full/10.1148/radiol.5244444630 D/ / Boy Saleem MD / Boy Saleem MD Interpreting Provider: Boy Saleem MD - Time Spent With Patient Total time spent is greater than 50% in coordination of care (as documented) at patient's floor/unit and/or counseling patient: - Attending Attestation I saw evaluated and examined this patient and reviewed objective data including labs and my medical decision-making was reviewed with the Resident Physician. I agree with the documented findings, disposition and treatment plan as described except to any changes set forth below. We independently had [id number] contact with the patient.
[2019-04-30] MEDS: Divalproex (12 HR) 250 MG TABLET PO SCH (20:51)
[2019-04-30] MEDS: Gabapentin 100 MG CAPSULE PO SCH (20:51)
[2019-04-30] MEDS: Magnesium Oxide 400 MG TABLET PO SCH (20:51)
[2019-04-30] MEDS ORDERED: POTASSIUM 198 MG PO SCH (21:00)
[2019-04-30] MEDS ORDERED: traMADol 50 MG TABLET PO PRN (21:02)
[2019-05-01] MEDS: *HR* Promethazine 25 MG/ML VIAL IVP PRN (03:11)
[2019-05-01] MEDS: *HR* LORazepam 2 MG/ML VIAL IVP PRN ×3 (03:18→22:26)
[2019-05-01] MEDS ORDERED: hydrOXYzine pamoate 25 MG CAPSULE PO STA (04:49)
[2019-05-01 05:30] LABS: Basophils # 0.1 K/mcL (0.0-0.2); Basophils % 0.4 %; Eosinophils % 0.1 %; Hematocrit 44.5 % (37.5-50.1); Hemoglobin 15.2 g/dL (12.9-16.9); Immature Granulocytes % 0.5 % (0-4); Lymphocytes % 7.4 %; Mean Corpuscular HGB Conc 34.2 g/dL (31.6-35.5); Mean Corpuscular Hemoglobin 32.9 pg (28.0-33.3); Mean Corpuscular Volume 96.3 fL (83.0-100.0); Mean Platelet Volume 11.6 fL (9.4-12.4); Monocytes # 0.4 K/mcL (0.0-1.3); Monocytes % 3.3 %; Neutrophils # 11.5 K/mcL (1.6-8.9); Nucleated Red Blood Cells 0.2 /100 WBC (0); Platelet Count 143 K/mcL (140-400); Red Blood Count 4.62 M/mcL (4.19-5.50); Red Cell Distribution Width 17.8 % (11.5-14.5); Segmented Neutrophils % 88.3 %
[2019-05-01 05:39] LABS: INR 1.3; Prothrombin Time 15.2 Seconds (9.4-12.1)
[2019-05-01 05:59] LABS: Alanine Aminotransferase 117 Units/L (7-52); Alkaline Phosphatase 210 Units/L (34-104); Aspartate Amino Transferase 343 Units/L (13-39); BUN/Creatinine Ratio 6 (6-26); Bilirubin,Total 2.4 mg/dL (0.3-1.0); Blood Urea Nitrogen 8 mg/dL (6-20); Calcium 8.8 mg/dL (8.6-10.3); Carbon Dioxide 24 mEq/L (23-29); Chloride 96 mEq/L (98-107); Chol/HDL Ratio 4.5 (0-4.9); Cholesterol 217 mg/dL (< 200); Globulin 3.9 g/dL (2.4-3.5); Glucose 81 mg/dL (70-105); HDL Cholesterol 48 mg/dL (40-59); LDL Cholesterol,Calculated 143 mg/dL (0-99); Magnesium 1.2 mg/dL (1.6-2.6); Osmolality,Calculated 283 (280-300); Phosphorous 2.6 mg/dL (2.7-4.5); Potassium 4.3 mEq/L (3.5-5.1); Sodium 138 mEq/L (136-145); Total Protein 7.9 g/dL (6.4-8.9); Triglycerides 130 mg/dL (< 150); eGFR For African Americans > 60 (> 60); eGFR For Non-African Americans 55 (> 60)
--- NOTE | 2019-05-01 07:19 | Internal Med Progress Note ---
<Stephany Clark - Last Filed: 05/01/19 18:24> Hospitalist Progress Note - Encounter Date of Encounter: 05/01/19 - Exam Vitals: Temp Pulse Resp BP Pulse Ox 98.3 F 68 16 111/72 96 05/01/19 16:10 05/01/19 16:10 05/01/19 16:10 05/01/19 16:10 05/01/19 16:10 - Time Spent with Patient Total time spent is greater than 50% in coordination of care (as documented) at patient's floor/unit and/or counseling patient: Internal Medicine: Result - Labs CBC & Chem 7: 05/01/19 05:00 05/01/19 05:00 Labs: Short CBC 05/01/19 Range/Units 05:00 WBC 13.0 H (4.3-11.1) K/mcL Hgb 15.2 (12.9-16.9) g/dL Hct 44.5 (37.5-50.1) % Plt Count 143 (140-400) K/mcL Neutrophils # 11.5 H (1.6-8.9) K/mcL BMP 05/01/19 05:00 Sodium 138 Potassium 4.3 D Chloride 96 L Carbon Dioxide 24 BUN 8 Creatinine 1.38 H Glucose 81 Calcium 8.8 Cardiac Enzymes 05/01/19 05/01/19 Range/Units 09:56 16:04 Troponin I 0.05 H* 0.03 (< 0.04) ng/mL Liver Function 04/30/19 05/01/19 Range/Units 17:59 05:00 Total Bilirubin 1.2 H 2.4 H (0.3-1.0) mg/dL Direct Bilirubin 0.7 H (0.0-0.2) mg/dL AST 357 H 343 H (13-39) Units/L ALT 120 H 117 H (7-52) Units/L Alkaline Phosphatase 191 H 210 H (34-104) Units/L Albumin 3.8 4.0 (3.5-5.7) g/dL - ABG Interpretation ABG results: PT/INR, D-dimer PT 15.2 Seconds (9.4-12.1) H 05/01/19 05:00 - Impressions Impressions Gallbladder Ultrasound 05/01/19 08:00 IMPRESSION: Gallbladder appears within normal limits. No evidence of cholelithiasis or cholecystitis. Cirrhosis. D/ / Prasanth Vitale MD / Prasanth Vitale MD Interpreting Provider: Prasanth Vitale MD Consult Discharge Plan - Plan Referrals: Sara Garcia MD [Primary Care Provider] - - Attending Attestation I saw evaluated and examined this patient and reviewed objective data including labs and my medical decision-making was reviewed with the Resident Physician. I agree with the documented findings, disposition and treatment plan as described except to any changes set forth below. We independently had [id number] contact with the patient. Today nursing reported that patient complained of severe chest pain. Patient stated that he intended to say that he is having abdominal pain. A troponin was done at that time showing a borderline troponin of 0.05, an repeat later in the day was 0.03. EKG unchanged since prior studies. Afebrile, no acute distress. Physical exam showed tender abdomen, about same since yesterday. Cooperative with exam. VS: reviewed, BP normal limits. GI recommendations appreciated, continue IV fluids, monitor LFTs. CIWA protocol monitoring. No signs of acute withdrawal. Patient requires to stay additional days because of need for IV fluid hydration and GI evaluation and further studies. <Radha Avendaño I - Last Filed: 05/02/19 08:58> Hospitalist Progress Note - Encounter Date of Encounter: 05/02/19 Time of Encounter: 09:30 - Subjective Interval History: Today patient was seen and examined . he was doing well denies epigastric pain or nausea vomiting , states he had three normal bowel motions and asked for discharge , later during morning he said he has sever chest pain 04/12 troponin and EKG were ordered which he denies it later . - Exam Vitals: Temp Pulse Resp BP Pulse Ox 98.3 F 74 16 94/64 95 05/01/19 06:49 05/01/19 06:49 05/01/19 06:49 05/01/19 06:49 05/01/19 06:49 Exam: General - Alert and oriented x 3, IN MILD distress HEENT - Conjunctiva clear, eye un icterus no nasal or oral mucosal lesions/ulcerations , Heme/Lymph - No cervical or supraclavicular lymph node enlargement or tenderness. No pallor. Heart - S1S2 regular in rate and rhythm without murmurs, clicks or rubs. No peripheral edema. Radial pulses equal and strong Lungs - Unlabored breathing,normal breath sound bilaterally Gastrointestinal - Soft, mild epigastric tenderness , nondistended. Unable to palpate any hepatosplenomegaly Neurological - Gait normal, muscle strength 5/5 in all four extremities, sensation intact Musculoskeletal - Full ROM, no joint tenderness psych : normal mood and behaviour - Assessment and Plan (1) Chest pain Current Visit: Yes Status: Acute Assessment and Plan: patient state he developed severe chest pain this morning , later he denies saying that , also he had one hypotensive attack unknown cause yet EKG show mild ST deprresion ,troponin 0.05 , vitals stable , will trend troponin -unable to perform CTA due to LEV (2) Pancreatitis, acute Current Visit: No Status: Resolved Assessment and Plan: -Patient presented with epigastric pain , pancreatitis mostly due to alcohol abuse ,also it could be due to obstructing stone today his pain subsided -vitals stable except for BP which was 175/113 and now 94/64 -wbc 13 , PT 15.2. inr 1.3 -LIPASE 137 -AST 343 ,ALT 117 , ALP 210 ,total bilirubin 2.4 -TG 130 -SALLY CRITERIA 1 -CT of the abdomen and pelvis Findings are compatible with residual or recurrent pancreatitis superimposed upon chronic pancreatitis. The degree of inflammatory stranding about the pancreas is decreased as compared to prior exam dated 01/18/2019. -RUQ US GB within normal limit . no cholycystitis or cholilitjiasis , cirhosis of liver PLAN : maintenance 0.9% NS at rate of 150ml/hr . WE WERE CAREFUL ABOUT FLUID DUE TO HISTORY OF CIRHOSIS clear diet as tolerated He is on SL oxycodone as well as zofran and PPI Ordered spirometry to prevent sequelae of lung injury from ongoing pancreatitis GI is consulted and recommend continuing this plan (3) LEV (acute kidney injury) Current Visit: Yes Status: Acute Assessment and Plan: His creatinine bumped to 1.38 ,EST GFR 55 IVF monitor electrolyte aviod nephrotoxic medication (4) Alcohol abuse Current Visit: No Status: Chronic Assessment and Plan: Has a known history of alcohol abuse , also has a known history of seizure disorder with alcohol withdrawal and did delirium tremens he is on CIWA protocol plus librium plus his valporic acid continue montoring vitals continue electrolyte monitoring (5) HTN (hypertension) Current Visit: No Status: Chronic Assessment and Plan: it is controlled although he had high blood pressure this morning but was just one read , also one read of 97/60 we hold his Norvasc continue monitoring (6) Alcoholic cirrhosis of liver Current Visit: No Status: Chronic Assessment and Plan: this is a chronic condition most likley due to alcohol LFT elevated he is not in exacerbation we are carful with fluid replacement due to cirhosis . (7) Seizure disorder Current Visit: No Status: Chronic Assessment and Plan: we resumed his home valporic acid plus he is on librium and CIWA protocol continue montoring vitals continue electrolyte monitoring (8) Hypocalcemia Current Visit: Yes Status: Acute Assessment and Plan: resolved , his corrected CA is normal - Time Spent with Patient Total time spent is greater than 50% in coordination of care (as documented) at patient's floor/unit and/or counseling patient: Internal Medicine: Result - Labs CBC & Chem 7: 05/02/19 04:14 05/02/19 04:14 Labs: Short CBC 04/30/19 05/01/19 Range/Units 13:31 05:00 WBC 11.4 H 13.0 H (4.3-11.1) K/mcL Hgb 14.1 15.2 (12.9-16.9) g/dL Hct 40.7 44.5 (37.5-50.1) % Plt Count 142 143 (140-400) K/mcL Neutrophils # 9.4 H 11.5 H (1.6-8.9) K/mcL BMP 04/30/19 05/01/19 13:31 05:00 Sodium 140 138 Potassium 3.2 L 4.3 D Chloride 104 96 L Carbon Dioxide 22 L 24 BUN 6 8 Creatinine 1.30 1.38 H Glucose 135 H 81 Calcium 7.6 L 8.8 Cardiac Enzymes 04/30/19 Range/Units 13:31 Troponin I < 0.03 (< 0.04) ng/mL Liver Function 04/30/19 05/01/19 Range/Units 17:59 05:00 Total Bilirubin 1.2 H 2.4 H (0.3-1.0) mg/dL Direct Bilirubin 0.7 H (0.0-0.2) mg/dL AST 357 H 343 H (13-39) Units/L ALT 120 H 117 H (7-52) Units/L Alkaline Phosphatase 191 H 210 H (34-104) Units/L Albumin 3.8 4.0 (3.5-5.7) g/dL Urine 04/30/19 Range/Units 14:07 Urine Color [place] A (Yellow) Urine Clarity Cloudy A (Clear) Urine pH 5.0 (5.0-8.0) pH Units Ur Specific [place] 1.025 (1.010-1.025) Urine Protein 30 H (Neg-Trace) mg/dL Urine Glucose (UA) Normal (Normal) mg/dL - ABG Interpretation ABG results: PT/INR, D-dimer PT 15.2 Seconds (9.4-12.1) H 05/01/19 05:00 - Impressions Impressions Abdomen/Pelvis CT 04/30/19 13:02 IMPRESSION: Findings are compatible with residual or recurrent pancreatitis superimposed upon chronic pancreatitis. The degree of inflammatory stranding about the pancreas is decreased as compared to prior exam dated 01/18/2019. Hepatic cirrhosis. 1.2 cm ground-glass nodule along the plane of the horizontal fissure. Follow-up recommendations are as below. RECOMMENDATIONS: Fleischner Society guidelines for follow-up and management of incidentally detected subsolid pulmonary nodules: Solitary ground glass nodule < 6 mm - No routine follow-up. > than or equal to 6 mm - CT at 6-12 months to confirm persistence, then CT every 2 years until 5 years. Solitary part-solid nodules < 6 mm - No routine follow-up. > than or equal to 6 mm - CT at 3-6 to confirm persistence. If unchanged and solid component remains less than 6 mm, annual CT should be performed for 5 years. Multiple subsolid nodules < 6 mm - CT at 3-6 months. If stable, consider CT at 2 and 4 years. > than or equal to 6 mm - CT at 3-6 months. Subsequent management based on the most suspicious nodule(s). Radiology 2017 http://pubs.rsna.org/doi/full/10.1148/radiol.4908570255 D/ / Boy Saleem MD / Boy Saleem MD Interpreting Provider: Boy Saleem MD <KaterynaRadha I - Last Filed: 05/02/19 08:58> (2) Pancreatitis, acute Qualifiers: Pancreatitis type: alcohol induced Qualified Code(s): K85.20 - Alcohol induced acute pancreatitis without necrosis or infection (5) HTN (hypertension) Qualifiers: Hypertension type: essential hypertension Qualified Code(s): I10 - Essential (primary) hypertension (6) Alcoholic cirrhosis of liver Qualifiers: Ascites presence: unspecified Qualified Code(s): K70.30 - Alcoholic cirrhosis of liver without ascites
[2019-05-01] MEDS ORDERED: amLODIPine 5 MG TABLET PO SCH (09:00)
[2019-05-01] MEDS: Magnesium Oxide 400 MG TABLET PO SCH ×2 (09:46→20:42)
[2019-05-01] MEDS: Divalproex (12 HR) 250 MG TABLET PO SCH ×3 (09:46→20:42)
[2019-05-01] MEDS: Thiamine (B-1) 100 MG TABLET PO SCH (09:46)
[2019-05-01] MEDS: Folic Acid 1 MG TABLET PO SCH (09:46)
[2019-05-01] MEDS: Gabapentin 100 MG CAPSULE PO SCH ×2 (09:46→20:42)
--- NOTE | 2019-05-01 10:46 | Gastroenterology Consult Note ---
<Alisia Seals - Last Filed: 05/01/19 15:09> Date of Encounter: 05/01/19 Time of Encounter: 10:38 - Assessment and plan (1) Acute on chronic pancreatitis Status: Acute Assessment and plan: History pancreatitis secondary to alcohol versus obstructing gallstones Continues to consume alcohol daily and fatty meals daily Lipase on admission was 65 with elevated LFTs and total bilirubin was 1.2 this morning total bilirubin noted to be 2.4 Continue IV hydration nothing by mouth at this time Please continue to replace electrolytes Gallbladder ultrasound does not show concerning for cholecystitis, likely alcoholic etiology and not gallstone etiology Please advance diet as tolerated, if unable to tolerate oral intake consider dobhoff placement for early initiation of feeding Ordered spirometry to prevent sequelae of lung injury from ongoing pancreatitis - Time Spent With Patient Total time spent is greater than 50% in coordination of care (as documented) at patient's floor/unit and/or counseling patient: GI History of Present Illness - Data of Consult Requesting Physician: Stephany Clark MD - Consult Narrative History of present illness: Mr. Friend is a 48 year old male with past medical history of pancreatitis, alcohol abuse with alcoholic cirrhosis, hypertension, seizure history who presented to the ED on complaining of midepigastric abdominal pain rated as 7 out of 10 when it onset with radiation to the back. She reported the pain started at 6 AM on 04/30/19 day prior he had 4/5 of liquor as well as heavy meal including pizza. He reported the pain was very similar to his previous history of pancreatitis, previously reported to have gallstone pancreatitis requiring stent placement due to obstructing stone at [facility] on January 2019. Does report ongoing consumption of alcohol daily as well as fatty meals. Inquired about why he has recurrent pancreatitis reminded him of his ongoing alcohol use and fatty meals and was understanding and reported he has been advised to stop those in the past but is unable to do so. He does have history of seizure disorder secondary to alcohol withdrawal with delirium tremors. At presentation to the ED his lipase was noted to be 685 with elevated LFTs. Total bilirubin at presentation was 1.[address] of the abdomen showed 1.2 cm residual versus recurrent pancreatitis with hepatic cirrhosis. Had gallbladder ultrasound which shows normal-appearing gallbladder with no evidence of cholelithiasis or cholecystitis. He does report his abdominal pain has subsided substantially since admission. In the ED he received 1 unit of IV fluids at admission received 1 additional unit of normal saline. Will continue IV hydration at this time and keep nothing by mouth at this time. At this time he is reporting mild epigastric pain denies any shortness of breath, chills, fever, chest pain, emesis, melena or hematochezia. Past Med Surg Social Fam HX - Past Medical History Medical history: arthritis, cirrhosis, CVA, hypertension, liver disease, myocardial infarction, seizures Additional medical history: osteoarthritis. Degenerative Disc Disease. HX pancreatitis. alcoholic hepatitis. ITP s/p spleenectomy Psychiatric history: anxiety, depression - Past Surgical History Surgical History: splenectomy, other Additional surgical history: cervical fusion. lumbar discectomy. Right ACL repair. splenectomy - Social History Smoking Status: Former smoker Packs per day: 1 Smokeless Tobacco Status: Yes (Vape) Alcohol use: heavy, recent Drug use: none - Family History Father Adopted: No Family Member Ethnicity: Non- Living Status: Still Living Hx Family Cancer: Yes (skin) Hx Family GI Disorders: No Hx Family Genitourinary Disorders: No Hx Family Endocrine Disorder: Yes (Parkinsons disease) Hx Family Musculoskeletal Disorders: No Hx Family Neuromuscular Disorders: No Hx Family Neurologic Disorders: No Hx Family HEENT Disorders: No Hx Family Autoimmune Disorders: No Hx Family Reproductive Disorders: No Hx Family Psychosocial Disorders: No Hx Family Medical Disorders: No Mother History Unknown: Yes Adopted: No Living Status: Still Living Hx Family Cardiac Disorders: Yes Hx Family Cancer: Yes (lung, breast, skin, brain) Hx Family GI Disorders: Yes (Mother-colon removal re-section) Hx Family Genitourinary Disorders: No Hx Family Endocrine Disorder: No Hx Family Musculoskeletal Disorders: No Hx Family Neuromuscular Disorders: No Hx Family Neurologic Disorders: No Hx Family HEENT Disorders: No Hx Family Autoimmune Disorders: No Hx Family Reproductive Disorders: No Hx Family Psychosocial Disorders: No Hx Family Medical Disorders: No - Gastrointestinal Gastrointestinal: Present: abdominal pain (epigastric), nausea. Absent: diarrhea, melena, vomiting - Constitutional Constitutional: no fatigue, no fever(s) - EENT Nose, mouth and throat: Absent: dysphagia, sore throat - Cardiovascular Cardiovascular ROS: Absent: chest pain, palpitations - Respiratory Respiratory IM: Absent: cough, dyspnea, wheezing - Neurological ROS Neurological GI: Present: tremor(s). Absent: confusion, headache(s), weakness - Hematologic/Lymphatic Hematologic/Lymphatic pediatric: Absent: easy bleeding - Integumentary Integumentary GI: Absent: pruritis, rash - Constitutional Vitals: Temp Pulse Resp BP Pulse Ox 98.3 F 74 16 94/64 95 05/01/19 06:49 05/01/19 06:49 05/01/19 06:49 05/01/19 06:49 05/01/19 06:49 - Head Head exam: Present: atraumatic, normal inspection - Eye Eye exam: Present: EOMI, sclera anicteric. Absent: conjunctival injection - ENT ENT exam: Present: mucous membranes moist, normal oropharynx - Neck Neck exam general surgery: Present: full ROM, trachea midline. Absent: tenderness - Respiratory Respiratory exam: Present: CTAB. Absent: rhonchi, wheezes - Cardiovascular Cardiovascular exam: Present: RRR, +S1, +S2 - GI/Abdominal GI/Abdominal exam: Present: normal bowel sounds, soft, tenderness (Epigastric). Absent: firm - Neurological Exam Neurological exam: Present: oriented X3 (Tremor) - Psychiatric Psychiatric exam: Present: flat affect - Skin Skin exam: Present: dry, intact Results - Labs CBC & Chem 7: 05/01/19 05:00 05/01/19 05:00 Labs: Last Result 05/01/19 05/01/19 05:00 09:56 Calcium 8.8 Troponin I 0.05 H* Triglycerides 130 Entire Visit 05/01/19 05/01/19 05/01/19 05:00 05:00 05:00 Hgb 15.2 Hct 44.5 PT 15.2 H Total Bilirubin 2.4 H AST 343 H ALT 117 H Lipase 05/01/19 05:00 Hgb Hct PT Total Bilirubin AST ALT Lipase 137 H - ABG ABG results: PT/INR, D-dimer PT 15.2 Seconds (9.4-12.1) H 05/01/19 05:00 - Impressions Impressions Abdomen/Pelvis CT 04/30/19 13:02 IMPRESSION: Findings are compatible with residual or recurrent pancreatitis superimposed upon chronic pancreatitis. The degree of inflammatory stranding about the pancreas is decreased as compared to prior exam dated 01/18/2019. Hepatic cirrhosis. 1.2 cm ground-glass nodule along the plane of the horizontal fissure. Follow-up recommendations are as below. RECOMMENDATIONS: Fleischner Society guidelines for follow-up and management of incidentally detected subsolid pulmonary nodules: Solitary ground glass nodule < 6 mm - No routine follow-up. > than or equal to 6 mm - CT at 6-12 months to confirm persistence, then CT every 2 years until 5 years. Solitary part-solid nodules < 6 mm - No routine follow-up. > than or equal to 6 mm - CT at 3-6 to confirm persistence. If unchanged and solid component remains less than 6 mm, annual CT should be performed for 5 years. Multiple subsolid nodules < 6 mm - CT at 3-6 months. If stable, consider CT at 2 and 4 years. > than or equal to 6 mm - CT at 3-6 months. Subsequent management based on the most suspicious nodule(s). Radiology 2017 http://pubs.rsna.org/doi/full/10.1148/radiol.[email or web address] D/ / Boy Saleem MD / Boy Saleem MD Interpreting Provider: Boy Saleem MD Gallbladder Ultrasound 05/01/19 08:00 IMPRESSION: Gallbladder appears within normal limits. No evidence of cholelithiasis or cholecystitis. Cirrhosis. D/ / Prasanth Vitale MD / Prasanth Vitale MD Interpreting Provider: Prasanth Vitale MD Consult Discharge Plan - Plan Instructions: Pancreatitis (DC) Referrals: Sara Garcia MD [Primary Care Provider] - (The patient will need to call the office to schedule a follow up appointment. ) Prescriptions: Amoxicillin/Clavulanate [Augmentin] 875 mg PO BIDWM #18 tablet Amoxicillin/Clavulanate [Augmentin] 875 mg PO BIDWM #18 tablet Chlordiazepoxide [Librium] 25 mg PO BID 6 Days #9 capsule GuaiFENesin ER [Mucinex] 600 mg PO BID 9 Days #18 tbbp.12hr GuaiFENesin ER [Mucinex] 600 mg PO BID #14 tbbp.12hr <Armen Pineda - Last Filed: 05/04/19 22:28> Date of Encounter: 05/02/19 - Time Spent With Patient Total time spent is greater than 50% in coordination of care (as documented) at patient's floor/unit and/or counseling patient: GI History of Present Illness - Data of Consult Requesting Physician: Stephany Clark MD - Consult Narrative History of present illness: Mr. Friend is a 48 year old male - Constitutional Vitals: Temp Pulse Resp BP Pulse Ox 98.5 F 75 15 135/87 98 05/04/19 12:06 05/04/19 12:06 05/04/19 12:06 05/04/19 12:06 05/04/19 12:06 Results - Labs CBC & Chem 7: 05/04/19 03:17 05/04/19 03:17 - ABG ABG results: PT/INR, D-dimer PT 15.3 Seconds (9.4-12.1) H 05/04/19 03:17 - Attending Attestation Patient acute chronic acute pancreatitis in the setting of possible chronic pancreatitis the patient with considerable continuing alcohol abuse. Long discussion with her to discontinue alcohol and various programs to be available to her. Manage conservatively as discussed above further recommendations are to follow up with the in the office in about 3 weeks I examined this patient and my medical decision-making was reviewed with the Resident Physician. I agree with the documented findings, disposition and treatment plan as described except to the extent set forth below.
[2019-05-01] MEDS: 0.9 % Sodium Chloride 1,000 ML IVC SCH (14:17)
--- NOTE | 2019-05-01 14:53 | Electrocardiograph Report ---
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
[2019-05-01] MEDS ORDERED: Haloperidol Lactate 5 MG/ML VIAL IVP ONE (23:10)
[2019-05-01] MEDS ORDERED: *HR* Promethazine 25 MG/ML VIAL IVP ONE (23:13)
[2019-05-02 04:50] LABS: Basophils # 0.1 K/mcL (0.0-0.2); Basophils % 0.7 %; Eosinophils # 0.1 K/mcL (0.0-0.6); Eosinophils % 1.2 %; Hematocrit 44.3 % (37.5-50.1); Hemoglobin 14.8 g/dL (12.9-16.9); Immature Granulocytes % 0.6 % (0-4); Lymphocytes # 1.7 K/mcL (0.6-4.6); Lymphocytes % 19.2 %; Mean Corpuscular HGB Conc 33.4 g/dL (31.6-35.5); Mean Corpuscular Hemoglobin 33.2 pg (28.0-33.3); Mean Corpuscular Volume 99.3 fL (83.0-100.0); Mean Platelet Volume 11.8 fL (9.4-12.4); Monocytes # 1.2 K/mcL (0.0-1.3); Monocytes % 13.4 %; Neutrophils # 5.9 K/mcL (1.6-8.9); Nucleated Red Blood Cells 0.2 /100 WBC (0); Platelet Count 158 K/mcL (140-400); Red Blood Count 4.46 M/mcL (4.19-5.50); Segmented Neutrophils % 64.9 %
[2019-05-02 04:58] LABS: INR 1.5; Prothrombin Time 16.8 Seconds (9.4-12.1)
[2019-05-02 05:11] LABS: Alanine Aminotransferase 82 Units/L (7-52); Albumin 3.6 g/dL (3.5-5.7); Albumin/Globulin Ratio 1.1 (1.1-2.2); Alkaline Phosphatase 172 Units/L (34-104); Aspartate Amino Transferase 159 Units/L (13-39); BUN/Creatinine Ratio 18 (6-26); Bilirubin,Total 1.6 mg/dL (0.3-1.0); Blood Urea Nitrogen 25 mg/dL (6-20); Calcium 8.7 mg/dL (8.6-10.3); Carbon Dioxide 24 mEq/L (23-29); Chloride 99 mEq/L (98-107); Globulin 3.4 g/dL (2.4-3.5); Glucose 87 mg/dL (70-105); Lipase 140 Units/L (11-82); Osmolality,Calculated 288 (280-300); Potassium 3.7 mEq/L (3.5-5.1); Sodium 137 mEq/L (136-145); eGFR For African Americans > 60 (> 60); eGFR For Non-African Americans 56 (> 60)
--- NOTE | 2019-05-02 08:59 | Internal Med Progress Note ---
<Radha Avendaño I - Last Filed: 05/02/19 14:14> Hospitalist Progress Note - Encounter Date of Encounter: 05/02/19 Time of Encounter: 09:40 - Subjective Interval History: today patient was seen and examined . he was doing well this morning denies chest or epigastric pain , tolerating liquid food well no nausea or vomiting , positive bowel movement yeasterday . during the night yesterday he was agitated and hallucinated . received Ativan and haloperidol responded well to Haldol . - Exam Vitals: Temp Pulse Resp BP Pulse Ox 98.6 F 73 16 137/93 93 05/02/19 06:35 05/02/19 06:35 05/02/19 06:35 05/02/19 06:35 05/02/19 06:35 Exam: General - Alert and oriented x 3, IN MILD distress HEENT - Conjunctiva clear, eye un icterus no nasal or oral mucosal lesions/ulcerations , Heme/Lymph - No cervical or supraclavicular lymph node enlargement or tenderness. No pallor. Heart - S1S2 regular in rate and rhythm without murmurs, clicks or rubs. No peripheral edema. Radial pulses equal and strong Lungs - Unlabored breathing,normal breath sound bilaterally Gastrointestinal - Soft, no epigastric tenderness , nondistended. Unable to palpate any hepatosplenomegaly Neurological - Gait normal, muscle strength 5/5 in all four extremities, sensation intact Musculoskeletal - Full ROM, no joint tenderness psych : normal mood and behaviour - Assessment and Plan (1) Agitation Current Visit: Yes Status: Acute Assessment and Plan: Patient developed agitation and hallucination yesterday , pulled off IV line and telemetry , now doing well not agitated he was given Ativan first 2 mg then 1 mg but didnt respond he got 3 mg haloperdol too and respond well to it . his last drink was 48 hours ago so will keep him on librium and PRN ativan per CIAK protocol due to risk of withdrawal , also we put Ativan PRN 2 mg no Haloperidol PRN due to risk of QT prolongation in this patient giving his drug history monitor vitals and electrolyte (2) Pancreatitis, acute Current Visit: No Status: Resolved Assessment and Plan: His symptoms resolved LFT , lipase still high but improved tolerating well liquid diet . advance diet as tolerated He is on SL oxycodone as well as zofran and PPI Ordered spirometry to prevent sequelae of lung injury from ongoing pancreatitis GI is consulted and recommend continuing this plan (3) Alcohol abuse Current Visit: No Status: Chronic Assessment and Plan: Has a known history of alcohol abuse , also has a known history of seizure disorder with alcohol withdrawal and did delirium tremens he is on CIWA protocol plus librium plus his valporic acid continue montoring vitals continue electrolyte monitoring (4) LEV (acute kidney injury) Current Visit: Yes Status: Acute Assessment and Plan: His creatinine today1.37 ,EST GFR 56 monitor electrolyte aviod nephrotoxic medication (5) HTN (hypertension) Current Visit: No Status: Chronic Assessment and Plan: it is controlled although he had high blood pressure this morning we hold his Norvasc continue monitoring (6) Alcoholic cirrhosis of liver Current Visit: No Status: Chronic Assessment and Plan: this is a chronic condition most likley due to alcohol LFT elevated he is not in exacerbation we are carful with fluid replacement due to cirhosis . (7) Seizure disorder Current Visit: No Status: Chronic Assessment and Plan: we resumed his home valporic acid plus he is on librium and CIWA protocol continue montoring vitals continue electrolyte monitoring (8) Hypocalcemia Current Visit: Yes Status: Acute Assessment and Plan: resolved , his corrected CA is normal - Time Spent with Patient Total time spent is greater than 50% in coordination of care (as documented) at patient's floor/unit and/or counseling patient: Internal Medicine: Result - Labs CBC & Chem 7: 05/02/19 04:14 05/02/19 04:14 Labs: Short CBC 05/02/19 Range/Units 04:14 WBC 9.0 (4.3-11.1) K/mcL Hgb 14.8 (12.9-16.9) g/dL Hct 44.3 (37.5-50.1) % Plt Count 158 (140-400) K/mcL Neutrophils # 5.9 (1.6-8.9) K/mcL BMP 05/02/19 04:14 Sodium 137 Potassium 3.7 Chloride 99 Carbon Dioxide 24 BUN 25 H Creatinine 1.37 H Glucose 87 Calcium 8.7 Cardiac Enzymes 05/01/19 05/01/19 Range/Units 09:56 16:04 Troponin I 0.05 H* 0.03 (< 0.04) ng/mL Liver Function 05/02/19 Range/Units 04:14 Total Bilirubin 1.6 H (0.3-1.0) mg/dL AST 159 H (13-39) Units/L ALT 82 H (7-52) Units/L Alkaline Phosphatase 172 H (34-104) Units/L Albumin 3.6 (3.5-5.7) g/dL - ABG Interpretation ABG results: PT/INR, D-dimer PT 16.8 Seconds (9.4-12.1) H 05/02/19 04:14 - Impressions Impressions Gallbladder Ultrasound 05/01/19 08:00 IMPRESSION: Gallbladder appears within normal limits. No evidence of cholelithiasis or cholecystitis. Cirrhosis. D/ / Prasanth Vitale MD / Prasanth Vitale MD Interpreting Provider: Prasanth Vitale MD Consult Discharge Plan - Plan Referrals: Sara Garcia MD [Primary Care Provider] - <Stephany Clark - Last Filed: 05/02/19 16:09> Hospitalist Progress Note - Encounter Date of Encounter: 05/02/19 - Exam Vitals: Temp Pulse Resp BP Pulse Ox 98.2 F 71 16 137/91 91 05/02/19 13:59 05/02/19 13:59 05/02/19 13:59 05/02/19 13:59 05/02/19 13:59 - Time Spent with Patient Total time spent is greater than 50% in coordination of care (as documented) at patient's floor/unit and/or counseling patient: Internal Medicine: Result - Labs CBC & Chem 7: 05/02/19 04:14 05/02/19 04:14 Labs: Short CBC 05/02/19 Range/Units 04:14 WBC 9.0 (4.3-11.1) K/mcL Hgb 14.8 (12.9-16.9) g/dL Hct 44.3 (37.5-50.1) % Plt Count 158 (140-400) K/mcL Neutrophils # 5.9 (1.6-8.9) K/mcL BMP 05/02/19 04:14 Sodium 137 Potassium 3.7 Chloride 99 Carbon Dioxide 24 BUN 25 H Creatinine 1.37 H Glucose 87 Calcium 8.7 Cardiac Enzymes 05/01/19 Range/Units 16:04 Troponin I 0.03 (< 0.04) ng/mL Liver Function 05/02/19 Range/Units 04:14 Total Bilirubin 1.6 H (0.3-1.0) mg/dL AST 159 H (13-39) Units/L ALT 82 H (7-52) Units/L Alkaline Phosphatase 172 H (34-104) Units/L Albumin 3.6 (3.5-5.7) g/dL - ABG Interpretation ABG results: PT/INR, D-dimer PT 16.8 Seconds (9.4-12.1) H 05/02/19 04:14 - Attending Attestation I saw evaluated and examined this patient and reviewed objective data including labs and my medical decision-making was reviewed with the Resident Physician. I agree with the documented findings, disposition and treatment plan as described except to any changes set forth below. We independently had [id number] contact with the patient. _ <Radha Avendaño I - Last Filed: 05/02/19 14:14> (2) Pancreatitis, acute Qualifiers: Pancreatitis type: alcohol induced Qualified Code(s): K85.20 - Alcohol induced acute pancreatitis without necrosis or infection (5) HTN (hypertension) Qualifiers: Hypertension type: essential hypertension Qualified Code(s): I10 - Essential (primary) hypertension (6) Alcoholic cirrhosis of liver Qualifiers: Ascites presence: unspecified Qualified Code(s): K70.30 - Alcoholic cirrhosis of liver without ascites
[2019-05-02] MEDS: Magnesium Oxide 400 MG TABLET PO SCH ×2 (10:10→20:35)
[2019-05-02] MEDS: Gabapentin 100 MG CAPSULE PO SCH ×2 (10:11→20:35)
[2019-05-02] MEDS: Thiamine (B-1) 100 MG TABLET PO SCH (10:11)
[2019-05-02] MEDS: Divalproex (12 HR) 250 MG TABLET PO SCH ×3 (10:11→20:35)
[2019-05-02] MEDS: Folic Acid 1 MG TABLET PO SCH (10:12)
[2019-05-02 10:44] LABS: Magnesium 2.1 mg/dL (1.6-2.6); Phosphorous 1.8 mg/dL (2.7-4.5)
[2019-05-02] MEDS ORDERED: 0.9 % Sodium Chloride 1,000 ML ONE (15:19)
[2019-05-02] MEDS ORDERED: 0.9 % Sodium Chloride 1,000 ML IVC SCH (15:30)
[2019-05-02] MEDS: cephALEXin 500 MG CAPSULE PO SCH ×2 (18:13→20:35)
[2019-05-02] MEDS: 0.9 % Sodium Chloride 1,000 ML IVC SCH ×2 (19:13→19:15)
[2019-05-02] MEDS: *HR* LORazepam 2 MG/ML VIAL IVP PRN (23:27)
[2019-05-03] MEDS: *HR* LORazepam 2 MG/ML VIAL IVP PRN (01:25)
[2019-05-03] MEDS: *HR* Promethazine 25 MG/ML VIAL IVP PRN (02:04)
[2019-05-03 07:37] LABS: Basophils % 0.3 %; Eosinophils # 0.1 K/mcL (0.0-0.6); Eosinophils % 1.2 %; Hematocrit 45.6 % (37.5-50.1); Hemoglobin 15.5 g/dL (12.9-16.9); Immature Granulocytes % 0.4 % (0-4); Lymphocytes # 2.5 K/mcL (0.6-4.6); Lymphocytes % 28.1 %; Mean Corpuscular Volume 97.2 fL (83.0-100.0); Mean Platelet Volume 11.3 fL (9.4-12.4); Monocytes # 1.2 K/mcL (0.0-1.3); Neutrophils # 5.1 K/mcL (1.6-8.9); Nucleated Red Blood Cells 0.3 /100 WBC (0); Platelet Count 149 K/mcL (140-400); Red Blood Count 4.69 M/mcL (4.19-5.50); Red Cell Distribution Width 17.6 % (11.5-14.5)
[2019-05-03 07:57] LABS: Alanine Aminotransferase 74 Units/L (7-52); Albumin/Globulin Ratio 1.1 (1.1-2.2); Alkaline Phosphatase 180 Units/L (34-104); Aspartate Amino Transferase 142 Units/L (13-39); BUN/Creatinine Ratio 21 (6-26); Bilirubin,Total 1.6 mg/dL (0.3-1.0); Blood Urea Nitrogen 19 mg/dL (6-20); Calcium 9.3 mg/dL (8.6-10.3); Carbon Dioxide 29 mEq/L (23-29); Chloride 98 mEq/L (98-107); Globulin 3.7 g/dL (2.4-3.5); Glucose 121 mg/dL (70-105); Lipase 51 Units/L (11-82); Osmolality,Calculated 292 (280-300); Potassium 3.4 mEq/L (3.5-5.1); Sodium 139 mEq/L (136-145); Total Protein 7.7 g/dL (6.4-8.9); eGFR For African Americans > 60 (> 60); eGFR For Non-African Americans > 60 (> 60)
[2019-05-03] MEDS: Magnesium Oxide 400 MG TABLET PO SCH ×2 (08:26→21:01)
[2019-05-03] MEDS: Thiamine (B-1) 100 MG TABLET PO SCH (08:26)
[2019-05-03] MEDS: Gabapentin 100 MG CAPSULE PO SCH ×2 (08:26→21:01)
[2019-05-03] MEDS: cephALEXin 500 MG CAPSULE PO SCH ×3 (08:27→21:01)
[2019-05-03] MEDS: Divalproex (12 HR) 250 MG TABLET PO SCH ×3 (08:27→21:01)
[2019-05-03] MEDS: Folic Acid 1 MG TABLET PO SCH (08:27)
--- NOTE | 2019-05-03 10:52 | Internal Med Progress Note ---
<Stephany Clark - Last Filed: 05/03/19 13:44> Hospitalist Progress Note - Encounter Date of Encounter: 05/03/19 - Exam Vitals: Temp Pulse Resp BP Pulse Ox 98.2 F 60 16 92/52 95 05/03/19 11:50 05/03/19 11:50 05/03/19 11:50 05/03/19 11:50 05/03/19 11:50 - Time Spent with Patient Total time spent is greater than 50% in coordination of care (as documented) at patient's floor/unit and/or counseling patient: Internal Medicine: Result - Labs CBC & Chem 7: 05/03/19 07:16 05/03/19 07:16 Labs: Short CBC 05/03/19 Range/Units 07:16 WBC 9.0 (4.3-11.1) K/mcL Hgb 15.5 (12.9-16.9) g/dL Hct 45.6 (37.5-50.1) % Plt Count 149 (140-400) K/mcL Neutrophils # 5.1 (1.6-8.9) K/mcL BMP 05/03/19 07:16 Sodium 139 Potassium 3.4 L Chloride 98 Carbon Dioxide 29 BUN 19 Creatinine 0.90 Glucose 121 H Calcium 9.3 Liver Function 05/03/19 Range/Units 07:16 Total Bilirubin 1.6 H (0.3-1.0) mg/dL AST 142 H (13-39) Units/L ALT 74 H (7-52) Units/L Alkaline Phosphatase 180 H (34-104) Units/L Albumin 4.0 (3.5-5.7) g/dL - ABG Interpretation ABG results: PT/INR, D-dimer PT 16.8 Seconds (9.4-12.1) H 05/02/19 04:14 - Impressions Impressions Sinuses CT 05/02/19 15:09 IMPRESSION: Nonspecific partial opacification of the most anterior left ethmoid air cell could reflect sinusitis. Otherwise unremarkable CT paranasal sinus study. D/ / Barrie Jewell / Barrie Jewell Interpreting Provider: Barrie Jewell Consult Discharge Plan - Plan Referrals: Sara Garcia MD [Primary Care Provider] - - Attending Attestation I saw evaluated and examined this patient and reviewed objective data including labs and my medical decision-making was reviewed with the Resident Physician. I agree with the documented findings, disposition and treatment plan as described except to any changes set forth below. We independently had [id number] contact with the patient. <Bri Hart E - Last Filed: 05/03/19 18:48> Hospitalist Progress Note - Encounter Date of Encounter: 05/03/19 Time of Encounter: 11:15 - Subjective Interval History: Patient was seen and examined at bedside today he is doing well although very tired today. He denied any chest pain, shortness of breath, abdominal pain, nausea, vomiting, diarrhea, weakness. Patient did fall asleep during exam. Patient received Ativan last night. - Exam Vitals: Temp Pulse Resp BP Pulse Ox 98.5 F 76 18 152/80 94 05/02/19 19:29 05/03/19 08:25 05/03/19 08:25 05/03/19 08:25 05/02/19 19:29 Exam: General: Awake and alert although tired. Answers questions appropriately. Head: normocephalic, atraumatic Eyes: JAMIR, no icterus Cardio: RRR, no murmurs, rubs, or gallops Respiratory: CTAB, no wheezing, rhonchi, rales Abd: normal bowel sounds, no guarding or rigidity Extremities: no pedal edema, pulses equal bilaterally, warm Skin: warm, dry, intact - Assessment and Plan (1) Pancreatitis, acute Current Visit: No Status: Resolved Assessment and Plan: Patient symptoms have resolved LFTs and lipase have improved Patient is tolerating his liquid diet well and advance diet as tolerated GI has been consulted recommends continuing this plan (2) Alcohol abuse Current Visit: No Status: Chronic Assessment and Plan: Known history of alcohol abuse as well as seizure disorder with alcohol withdrawal and delirium tremens Currently on C whop protocol plus Librium and valproic acid Continue monitor vitals Continue electrolyte monitoring (3) HTN (hypertension) Current Visit: No Status: Chronic Assessment and Plan: Currently well controlled Continue Norvasc Continue to monitor (4) DVT prophylaxis Current Visit: No Status: Acute Assessment and Plan: Subcutaneous heparin (5) Alcoholic cirrhosis of liver Current Visit: No Status: Chronic Assessment and Plan: Chronic condition most likely due to his alcohol abuse LFTs elevated Noninvasive exacerbation Continue to monitor for any exacerbation of this We will monitor his fluid replacement due to his cirrhosis (6) Seizure disorder Current Visit: No Status: Chronic Assessment and Plan: Resume valproic acid Patient continues to be on Librium as well as the CIWA protocol Continue to monitor (7) Hypocalcemia Current Visit: Yes Status: Acute Assessment and Plan: Result this time Continue to monitor calcium - Time Spent with Patient Total time spent is greater than 50% in coordination of care (as documented) at patient's floor/unit and/or counseling patient: Internal Medicine: Result - Labs CBC & Chem 7: 05/03/19 07:16 05/03/19 07:16 Labs: Short CBC 05/03/19 Range/Units 07:16 WBC 9.0 (4.3-11.1) K/mcL Hgb 15.5 (12.9-16.9) g/dL Hct 45.6 (37.5-50.1) % Plt Count 149 (140-400) K/mcL Neutrophils # 5.1 (1.6-8.9) K/mcL BMP 05/03/19 07:16 Sodium 139 Potassium 3.4 L Chloride 98 Carbon Dioxide 29 BUN 19 Creatinine 0.90 Glucose 121 H Calcium 9.3 Liver Function 05/03/19 Range/Units 07:16 Total Bilirubin 1.6 H (0.3-1.0) mg/dL AST 142 H (13-39) Units/L ALT 74 H (7-52) Units/L Alkaline Phosphatase 180 H (34-104) Units/L Albumin 4.0 (3.5-5.7) g/dL - ABG Interpretation ABG results: PT/INR, D-dimer PT 16.8 Seconds (9.4-12.1) H 05/02/19 04:14 - Impressions Impressions Sinuses CT 05/02/19 15:09 IMPRESSION: Nonspecific partial opacification of the most anterior left ethmoid air cell could reflect sinusitis. Otherwise unremarkable CT paranasal sinus study. D/ / Barrie Jewell / Barrie Jewell Interpreting Provider: Barrie Jewell <Bri Hart E - Last Filed: 05/03/19 18:48> (1) Pancreatitis, acute Qualifiers: Pancreatitis type: alcohol induced Qualified Code(s): K85.20 - Alcohol induced acute pancreatitis without necrosis or infection (3) HTN (hypertension) Qualifiers: Hypertension type: essential hypertension Qualified Code(s): I10 - Essential (primary) hypertension (5) Alcoholic cirrhosis of liver Qualifiers: Ascites presence: unspecified Qualified Code(s): K70.30 - Alcoholic cirrhosis of liver without ascites
[2019-05-03] MEDS ORDERED: Nicotine 21 MG PATCH.TD24 TD SCH (20:22)
--- NOTE | 2019-05-03 21:35 | Event Note ---
Date of Encounter: 05/03/19 Time of Encounter: 19:49 Called to patient's room by patient's nurse JENNY Mallory regarding pts. insomnia and other concerns that he and his SO have. Went to see the pt. who was seated on the side of the bed. Patient appeared mildly anxious. I asked the pt. what was bothering him. He stated that he is under a SEVERE amount of stress and pressure. He stated that he takes care of his mother who has Alzheimer's disease as well as his father who has Parkinson's disease by himself with the help of his SO. He reported that his siblings do not help in their care. In addition, he is working to remodel his home and black mold was found which has made him feel unwell. CT of the head shows sinusitis. Patient reports pressure in the left side of his head and face which is actually improving after being placed on PO Keflex. Pt. is unable to have an MRI d/t having a spinal stimulator. Pts' SO stated that the pt. is unable to sleep at night d/t this stress and he is up all night worrying. SO stated that the patient was doing fine w/alcohol abstinence but relapsed d/t the level of stress he is under. I informed the patient that I was placing a SW consult to find counseling services for him to help alleviate his anxiety and stress through talking to someone as well as possible pharmacologic management, if warranted. Patient states he vapes and would like to go outside to smoke. I told him this was against hospital policy but I would order a 21 mg nicotine patch to start now. Mucinex ordered scheduled to help thin patient's thick secretions he is coughing up. I had a long discussion w/both pt. and SO about his need to turn his sleep cycle from days back to nights. Will avoid benzodiazepines so Seroquel 25 mg by mouth at bedtime can be initiated. Patient and SO expressed understanding and agreement to plan and all questions were answered and addressed. Nurse instructed to continue monitoring this pt. closely and alert me immediately of any adverse changes or pt. needs.
--- NOTE | 2019-05-04 00:01 | Electrocardiograph Report ---
[facility] Test Date: 2019-04-30 Pat Name: Yoni Friend Department: EXAM6 Room: 3A15 Gender: M [employer]: : 1970 Requested By: Rob Disla Order Number: [id number] Reading MD: Marcos Ford Measurements Intervals [place] Rate: 66 P: -3 W[place]: 168 QRS: -32 QRSD: 94 T: 11 QT: 411 QTc: 431 Interpretive Statements Sinus rhythm Left axis deviation Electronically Signed On 05-04-2019 0:00:25 EDT by Marcos Ford
[2019-05-04 03:27] LABS: Basophils % 0.5 %; Eosinophils # 0.1 K/mcL (0.0-0.6); Eosinophils % 1.1 %; Hematocrit 41.6 % (37.5-50.1); Hemoglobin 14.2 g/dL (12.9-16.9); Immature Granulocytes % 0.6 % (0-4); Lymphocytes # 2.3 K/mcL (0.6-4.6); Lymphocytes % 28.5 %; Mean Corpuscular HGB Conc 34.1 g/dL (31.6-35.5); Mean Corpuscular Hemoglobin 32.9 pg (28.0-33.3); Mean Corpuscular Volume 96.5 fL (83.0-100.0); Mean Platelet Volume 11.2 fL (9.4-12.4); Monocytes # 0.9 K/mcL (0.0-1.3); Monocytes % 11.5 %; Neutrophils # 4.6 K/mcL (1.6-8.9); Nucleated Red Blood Cells 0.3 /100 WBC (0); Platelet Count 139 K/mcL (140-400); Red Blood Count 4.31 M/mcL (4.19-5.50); Red Cell Distribution Width 17.4 % (11.5-14.5); Segmented Neutrophils % 57.8 %; White Blood Count 7.9 K/mcL (4.3-11.1)
[2019-05-04 03:38] LABS: INR 1.3; Prothrombin Time 15.3 Seconds (9.4-12.1)
[2019-05-04 03:47] LABS: Alanine Aminotransferase 63 Units/L (7-52); Albumin 3.4 g/dL (3.5-5.7); Albumin/Globulin Ratio 0.9 (1.1-2.2); Alkaline Phosphatase 160 Units/L (34-104); Aspartate Amino Transferase 134 Units/L (13-39); BUN/Creatinine Ratio 27 (6-26); Bilirubin,Total 1.3 mg/dL (0.3-1.0); Blood Urea Nitrogen 16 mg/dL (6-20); Calcium 8.8 mg/dL (8.6-10.3); Carbon Dioxide 22 mEq/L (23-29); Chloride 102 mEq/L (98-107); Globulin 3.6 g/dL (2.4-3.5); Glucose 83 mg/dL (70-105); Osmolality,Calculated 282 (280-300); Potassium 3.4 mEq/L (3.5-5.1); Sodium 136 mEq/L (136-145); eGFR For African Americans > 60 (> 60); eGFR For Non-African Americans > 60 (> 60)
[2019-05-04] MEDS ORDERED: *HR* Enoxaparin 40 MG/0.4 ML SYRINGE SQ SCH (06:00)
[2019-05-04] MEDS: Gabapentin 100 MG CAPSULE PO SCH (08:25)
[2019-05-04] MEDS: Divalproex (12 HR) 250 MG TABLET PO SCH ×2 (08:25→16:18)
[2019-05-04] MEDS: Thiamine (B-1) 100 MG TABLET PO SCH (08:25)
[2019-05-04] MEDS: Folic Acid 1 MG TABLET PO SCH (08:26)
[2019-05-04] MEDS: Magnesium Oxide 400 MG TABLET PO SCH (08:26)
[2019-05-04 12:07] VITALS: BP 135/87
--- NOTE | 2019-05-04 12:20 | Discharge Summary ---
<Bri Hart E - Last Filed: 05/04/19 12:18> - NOTES TO OUTPATIENT PROVIDER Notes to Outpatient Provider: May need outpatient Stress test Date of Encounter: 05/04/19 Time of Encounter: 08:00 - Discharge Diagnosis (1) Pancreatitis, acute Priority: Primary Status: Resolved Assessment and Plan: Patient symptoms have resolved LFTs and lipase have improved Currently tolerating diet well Decreased pain Discharged today home Qualifiers: Pancreatitis type: alcohol induced Qualified Code(s): K85.20 - Alcohol induced acute pancreatitis without necrosis or infection (2) Alcohol abuse Priority: Primary Status: Chronic Assessment and Plan: Patient was on CIWA protocol is has been discontinued Patient also on Librium and as well as his valproic acid Librium will be tapered 50 mg twice a day for 3 days the milligrams daily for 3 days (3) HTN (hypertension) Priority: Secondary Status: Chronic Assessment and Plan: Currently well controlled Continue Norvasc Qualifiers: Hypertension type: essential hypertension Qualified Code(s): I10 - Es sential (primary) hypertension (4) DVT prophylaxis Priority: Secondary Status: Acute Assessment and Plan: Patient was on subcutaneous heparin (5) Alcoholic cirrhosis of liver Priority: Secondary Status: Chronic Assessment and Plan: Chronic condition most likely due to his alcohol abuse LFTs elevated Not currently in exacerbation Qualifiers: Ascites presence: unspecified Qualified Code(s): K70.30 - Alcoholic cirrhosis of liver without ascites (6) Seizure disorder Priority: Secondary Status: Chronic Assessment and Plan: Continue valproic acid (7) Hypocalcemia Priority: Secondary Status: Resolved Assessment and Plan: Currently resolved Hospital course: Mr. Friend is a 48 year old male presented with a one-hour history of midepigastric abdominal pain that was sharp and shooting in nature and radiated to his back with studies CAD nausea and vomiting. He has a history of multiple cryptitis episodes. She also has a history of alcohol use and abuse. Patient was started on seawall protocol as well as nothing by mouth and pain management and given [address] showed small amount of fluid seen along the margin of the stomach posteriorly as well as pancreatic ductal dilation with pancreatic duct approximately 1 cm, coarse calcifications in the pancreatic head, induration of fat seen about the pancreatic head a small amount of fluid and induration seen along the body as well thickening of the left adrenal gland also noted and no hydronephrosis. Patient was treated for acute pancreatitis and his liver function tests as well as lipase trended down. Patient also stated that he had been working on his bathroom and found some mold in it and he has been having some sinus pain and pressure. Patient was started on Augmentin. Patient will be discharged home on a total of 10 day course of antibiotics for his sinusitis and follow-up outpatient with GI for his recurrent pancreatitis. Discharge discussed with: patient - Time Spent with Patient Total time spent providing and/or coordinating discharge services: - Discharge Medications Prescriptions: New Amoxicillin/Clavulanate [Augmentin] 875 mg PO BIDWM #18 tablet Chlordiazepoxide [Librium] 25 mg PO BID 6 Days #9 capsule GuaiFENesin ER [Mucinex] 600 mg PO BID 9 Days #18 tbbp.12hr Continued amLODIPine [Norvasc] 5 mg PO DAILY Citalopram Hydrobromide [Citalopram HBr] 20 mg PO DAILY Divalproex (24 HR) [Depakote ER (24 HR)] 250 mg PO TID Folic Acid 1 mg PO DAILY Gabapentin [Neurontin] 100 mg PO BID Lisinopril [Zestril] 5 mg PO DAILY Nadolol 20 mg PO DAILY Thiamine HCl [Vitamin B-1] 100 mg PO DAILY Magnesium Oxide [Magnesium] 400 mg PO BID Potassium 198 mg PO BID Home Medications: Citalopram Hydrobromide [Citalopram HBr] 20 mg PO DAILY 01/19/19 [History] Divalproex (24 HR) [Depakote ER (24 HR)] 250 mg PO TID 01/19/19 [History] Folic Acid 1 mg PO DAILY 01/19/19 [History] Gabapentin [Neurontin] 100 mg PO BID 01/19/19 [History] Lisinopril [Zestril] 5 mg PO DAILY 01/19/19 [History] Nadolol 20 mg PO DAILY 01/19/19 [History] Thiamine HCl [Vitamin B-1] 100 mg PO DAILY 01/19/19 [History] amLODIPine [Norvasc] 5 mg PO DAILY 01/19/19 [History] Magnesium Oxide [Magnesium] 400 mg PO BID 04/30/19 [History] Potassium 198 mg PO BID 04/30/19 [History] Amoxicillin/Clavulanate [Augmentin] 875 mg PO BIDWM #18 tablet 05/04/19 [Rx] Chlordiazepoxide [Librium] 25 mg PO BID 6 Days #9 capsule 05/04/19 [Rx] GuaiFENesin ER [Mucinex] 600 mg PO BID 9 Days #18 tbbp.12hr 05/04/19 [Rx] Allergies/Adverse Reactions: Allergy/AdvReac Type Severity Reaction Status Date / Time hydrocodone [From Vicodin] Allergy Rash Verified 01/19/19 17:16 oxycodone [From Percocet] Allergy Rash Verified 01/19/19 17:16 narcotics AdvReac Gastrointestinal Uncoded 01/19/19 17:16 Upset Date of admission: 05/01/19 18:25 Primary care physician: Sara Garcia MD Consults: 04/30/19 17:57 Consult to Gastroenterology [CONS] Routine Consulting Provider: Gastroenterology Gibbs Reason for Consult: Acute on chronic pancreatitis, hx of alcohol abuse, also hx of biliary stones with previous stent placed at [facility] Call Completed: No 05/03/19 20:22 Consult to [facility] [CONS] Routine Reason for SW Consult: Patient needs set up with counseling services. He is under a SEVERE amount of stress which has caused him to relapse w/alcohol abuse. In need of immediate attention to avoid further relapses or mental health issues. Discharging clinician: Stephany Clark Anticipated date of discharge: 05/04/19 - Constitutional Vitals: Temp Pulse Resp BP Pulse Ox 98.5 F 75 15 135/87 98 05/04/19 12:06 05/04/19 12:06 05/04/19 12:06 05/04/19 12:06 05/04/19 12:06 Exam: General: AAO 3, answers questions appropriately Head: normocephalic, atraumatic Eyes: JAMIR, no icterus Cardio: RRR, no murmurs, rubs, or gallops Respiratory: CTAB, no wheezing, rhonchi, rales Abd: normal bowel sounds, no guarding or rigidity Extremities: no pedal edema, pulses equal bilaterally, warm Skin: warm, dry, intact - Patient Status Disposition: Home, Self-Care Condition: Fair Functional capacity at discharge: independent ambulation Overall status at discharge: patient is progressing back to baseline - Discharge Instructions Follow Up With: Sara Garcia MD [Primary Care Provider] - (The patient will need to call the office to schedule a follow up appointment. ) Forms: ED Satisfaction Letter - Diet and Activity Activity: increase activity as tolerated Diet: advance to your usual diet <Stephany Clark - Last Filed: 05/04/19 13:57> Date of Encounter: 05/04/19 Hospital course: Mr. Friend is a 48 year old male - Time Spent with Patient Total time spent providing and/or coordinating discharge services: Date of admission: 05/01/19 18:25 Primary care physician: Sara Garcia MD Consults: 04/30/19 17:57 Consult to Gastroenterology [CONS] Routine Consulting Provider: Gastroenterology Monalisa Reason for Consult: Acute on chronic pancreatitis, hx of alcohol abuse, also hx of biliary stones with previous stent placed at [facility] Call Completed: No 05/03/19 20:22 Consult to [facility] [CONS] Routine Reason for SW Consult: Patient needs set up with counseling services. He is under a SEVERE amount of stress which has caused him to relapse w/alcohol abuse. In need of immediate attention to avoid further relapses or mental health issues. - Constitutional Vitals: Temp Pulse Resp BP Pulse Ox 98.5 F 75 15 135/87 98 05/04/19 12:06 05/04/19 12:06 05/04/19 12:06 05/04/19 12:06 05/04/19 12:06 - Attending Attestation I saw evaluated and examined this patient and reviewed objective data including labs and my medical decision-making was reviewed with the Resident Physician. I agree with the documented findings, disposition and treatment plan as described except to any changes set forth below. We independently had [id number] contact with the patient. 48 year old male with pmh of chronic pancreatitis, alcohol abuse with cirrhosis, seizures, presented with acute and chronic pancreatitis. Symptoms started one hour after drinking alcohol. Patient was admitted for further treatment and IV fluids. GI consulted and monitored patient as well. Symptoms improved with IV fluid hydration, and was given cautiously as he does have cirrhosis. He has history of alcohol withdrawal and so Lubrium was intiated with CIWA protocol. He did not have any active withdrawal episodes nor seizures. Patient complained of chest pain during admission. A workup showed no acute findings on EKG, chest x-ray. A troponin was cycled that was negative but slightly increased to 0.05. He states he felt this was stomach pain, and has since resolved. Patient LFTs and lipase trended down and he was able to advance diet. He was discharged home in stable condition. Will be on Librium taper on discharge. Follow-up: - Has 1.2 cm ground-glass pulmonary nodule seen on CT abdomen/pelvis, which will likely require a follow-up CT scan. - Consider cardiac stress test - Follow-up with GI as instructed.
== END 2019-05-04 17:31 | disposition home or self-care (01) | DRG 439 ==
LOC: 3ANU 12:47 → EMEROOARM 12:47 → SUATTDRO 16:13 → 3ANU 17:15
PROVIDERS: ADMIT Internal Medicine; ATTEND Student in an Organized Health Care Education/Training Program

== ENCOUNTER 2019-08-03 15:54 | Observation (INO) ==
[2019-08-03] MEDS ORDERED: Ondansetron 4 MG/2 ML VIAL IVP ONE (16:02)
[2019-08-03] MEDS ORDERED: 0.9 % Sodium Chloride 1,000 ML IVC ONE ×2 (16:02→17:23)
[2019-08-03] MEDS ORDERED: Morphine Sulfate 2 MG/ML SYRINGE IVP ONE (16:04)
[2019-08-03] MEDS ORDERED: Isovue-370 500 ML BOTTLE IVP ONE (16:06)
[2019-08-03] MEDS ORDERED: *HR* LORazepam 2 MG/ML VIAL IVP ONE (16:10)
[2019-08-03 16:27] LABS: Bilirubin,Urine Small (Negative); Blood,Urine Negative (Negative); Clarity,Urine Clear (Clear); Color,Urine Dark Yellow (Yellow); Glucose,Urine (UA) Normal (Normal); Ketones,Urine Trace mg/dL (Negative); Leukocyte Esterase,Urine Negative (Negative); Nitrite,Urine Negative (Negative); PH,Urine 5.5 pH Units (5.0-8.0); Protein,Urine 100 mg/dL (Neg-Trace); Specific Gravity,Urine > 1.030 (1.010-1.025); Urobilinogen,Urine Normal (Normal)
[2019-08-03 16:30] LABS: Bacteria,Urine None Seen per hpf (None-Few); Squamous Epithelial Cell,Urine Many per lpf (None-Few)
[2019-08-03 16:31] LABS: Mucus,Urine Moderate (Few)
[2019-08-03 16:33] LABS: Basophils # 0.1 K/mcL (0.0-0.2); Basophils % 0.4 %; Hematocrit 46.8 % (37.5-50.1); Immature Granulocytes % 0.5 % (0-4); Lymphocytes # 2.9 K/mcL (0.6-4.6); Lymphocytes % 13.1 %; Mean Corpuscular HGB Conc 36.3 g/dL (31.6-35.5); Mean Corpuscular Hemoglobin 33.2 pg (28.0-33.3); Mean Corpuscular Volume 91.4 fL (83.0-100.0); Mean Platelet Volume 10.3 fL (9.4-12.4); Monocytes # 0.8 K/mcL (0.0-1.3); Monocytes % 3.8 %; Neutrophils # 17.9 K/mcL (1.6-8.9); Platelet Count 283 K/mcL (140-400); Red Blood Count 5.12 M/mcL (4.19-5.50); Red Cell Distribution Width 14.3 % (11.5-14.5); Segmented Neutrophils % 82.2 %; White Blood Count 21.9 K/mcL (4.3-11.1)
[2019-08-03 16:55] LABS: Alanine Aminotransferase 18 Units/L (7-52); Albumin 4.1 g/dL (3.5-5.7); Albumin/Globulin Ratio 1.2 (1.1-2.2); Alkaline Phosphatase 113 Units/L (34-104); Aspartate Amino Transferase 31 Units/L (13-39); BUN/Creatinine Ratio 11 (6-26); Bilirubin,Direct 0.2 mg/dL (0.0-0.2); Bilirubin,Indirect 0.6 mg/dL (0.0-1.0); Bilirubin,Total 0.8 mg/dL (0.3-1.0); Blood Urea Nitrogen 10 mg/dL (6-20); Calcium 8.5 mg/dL (8.6-10.3); Carbon Dioxide 20 mEq/L (23-29); Chloride 102 mEq/L (98-107); Globulin 3.5 g/dL (2.4-3.5); Glucose 124 mg/dL (70-105); Lipase 318 Units/L (11-82); Osmolality,Calculated 292 (280-300); Sodium 141 mEq/L (136-145); Total Protein 7.6 g/dL (6.4-8.9); Troponin I < 0.03 ng/mL (< 0.04); eGFR For African Americans > 60 (> 60); eGFR For Non-African Americans > 60 (> 60)
[2019-08-03] MEDS ORDERED: *HR* HYDROmorphone (PF) 1 MG/ML SYRINGE IVP ONE (18:10)
[2019-08-03] MEDS ORDERED: Ringers Solution, Lactated 1,000 ML IVC SCH (19:00)
[2019-08-03] MEDS ORDERED: Naloxone 0.4 MG/ML INJ IVP PRN ×2 (20:00)
[2019-08-03] MEDS ORDERED: *HR* LORazepam 2 MG/ML VIAL IVP PRN ×2 (20:04)
[2019-08-03] MEDS ORDERED: Acetaminophen 325 MG TABLET PO PRN (20:15)
[2019-08-03] MEDS ORDERED: Calcium Gluconate 1gm/50mL 1 GM/50 ML BAG IVPB ONE (20:21)
[2019-08-03] MEDS: *HR* HYDROmorphone (PF) 1 MG/ML SYRINGE IVP PRN (20:55)
[2019-08-03] MEDS: Ondansetron ODT 4 MG TAB.RAPDIS SL PRN (20:55)
[2019-08-03] MEDS ORDERED: *HR* Metoprolol 5 MG/5 ML VIAL IVP ONE (21:27)
[2019-08-03] MEDS: *HR* LORazepam 2 MG/ML VIAL IVP PRN ×2 (22:07→23:21)
[2019-08-03] MEDS ORDERED: Thiamine (B-1) 100 MG, Folic Acid 1 MG, MVI, adult with vitamin K 10 ML in 0.9 % Sodi... IVPB SCH (23:00)
[2019-08-03] MEDS ORDERED: amLODIPine 5 MG TABLET PO ONE (23:45)
[2019-08-04] MEDS: *HR* HYDROmorphone (PF) 1 MG/ML SYRINGE IVP PRN (01:38)
[2019-08-04] MEDS: Ringers Solution, Lactated 1,000 ML IVC SCH ×4 (02:44→08:39)
[2019-08-04] MEDS: Ondansetron ODT 4 MG TAB.RAPDIS SL PRN (03:00)
[2019-08-04 03:14] LABS: Basophils # 0.1 K/mcL (0.0-0.2); Basophils % 0.2 %; Eosinophils % 0.1 %; Hematocrit 44.8 % (37.5-50.1); Immature Granulocytes % 0.6 % (0-4); Lymphocytes # 1.4 K/mcL (0.6-4.6); Lymphocytes % 6.8 %; Mean Corpuscular HGB Conc 33.9 g/dL (31.6-35.5); Mean Corpuscular Hemoglobin 32.3 pg (28.0-33.3); Mean Corpuscular Volume 95.3 fL (83.0-100.0); Mean Platelet Volume 11.1 fL (9.4-12.4); Monocytes % 4.8 %; Nucleated Red Blood Cells 0.1 /100 WBC (0); Platelet Count 248 K/mcL (140-400); Red Cell Distribution Width 14.4 % (11.5-14.5); Segmented Neutrophils % 87.5 %; White Blood Count 20.6 K/mcL (4.3-11.1)
[2019-08-04 03:34] LABS: INR 1.2; Prothrombin Time 13.5 Seconds (9.4-12.1)
[2019-08-04 03:38] LABS: Alanine Aminotransferase 16 Units/L (7-52); Albumin/Globulin Ratio 1.3 (1.1-2.2); Alkaline Phosphatase 100 Units/L (34-104); Aspartate Amino Transferase 25 Units/L (13-39); BUN/Creatinine Ratio 13 (6-26); Bilirubin,Total 1.1 mg/dL (0.3-1.0); Blood Urea Nitrogen 11 mg/dL (6-20); Calcium 8.5 mg/dL (8.6-10.3); Carbon Dioxide 19 mEq/L (23-29); Chloride 102 mEq/L (98-107); Chol/HDL Ratio 3.3 (0-4.9); Cholesterol 168 mg/dL (< 200); Globulin 3.2 g/dL (2.4-3.5); Glucose 129 mg/dL (70-105); HDL Cholesterol 51 mg/dL (40-59); LDL Cholesterol,Calculated 104 mg/dL (0-99); Magnesium 1.5 mg/dL (1.6-2.6); Osmolality,Calculated 283 (280-300); Phosphorous 3.3 mg/dL (2.7-4.5); Potassium 3.9 mEq/L (3.5-5.1); Sodium 136 mEq/L (136-145); Total Protein 7.2 g/dL (6.4-8.9); Triglycerides 63 mg/dL (< 150); eGFR For African Americans > 60 (> 60); eGFR For Non-African Americans > 60 (> 60)
[2019-08-04 03:52] LABS: Hemoglobin 15.2 g/dL (12.9-16.9)
[2019-08-04] MEDS ORDERED: niCARdipine 20 MG in 0.9 % Sodium Chloride 192 ML IVC SCH ×2 (04:30→05:30)
[2019-08-04] MEDS ORDERED: cefTRIAXone 2,000 MG in Water for inj. (sterile) 20 ML IVP ONE (05:01)
[2019-08-04] MEDS ORDERED: *HR* HYDROmorphone 2 MG/ML SYRINGE IVP PRN (05:30)
[2019-08-04] MEDS ORDERED: Naloxone 0.4 MG/ML INJ IVP PRN ×2 (05:30→13:44)
[2019-08-04] MEDS ORDERED: *HR* LORazepam 2 MG/ML VIAL IVP PRN ×5 (05:30→13:44)
[2019-08-04] MEDS ORDERED: Ondansetron ODT 4 MG TAB.RAPDIS SL PRN (05:30)
[2019-08-04] MEDS ORDERED: Acetaminophen 325 MG TABLET PO PRN ×2 (05:30→13:44)
[2019-08-04] MEDS ORDERED: Ringers Solution, Lactated 1,000 ML ONE (05:37)
[2019-08-04] MEDS ORDERED: *HR* Heparin 5,000 UNIT/ML VIAL SQ SCH ×2 (06:00)
[2019-08-04] MEDS ORDERED: Ondansetron 4 MG/2 ML VIAL ONE (06:47)
[2019-08-04] MEDS ORDERED: Ondansetron 4 MG/2 ML VIAL IVP PRN (06:54)
[2019-08-04] MEDS ORDERED: niCARdipine 20 MG/200 ML MLS IVC SCH (08:45)
[2019-08-04] MEDS ORDERED: Folic Acid 1 MG TABLET PO SCH ×2 (09:00)
[2019-08-04] MEDS ORDERED: Thiamine (B-1) 100 MG TABLET PO SCH ×2 (09:00)
[2019-08-04] MEDS ORDERED: Multivit/Ca/Min/Fe/FA 1 TAB TABLET PO SCH ×2 (09:00)
[2019-08-04] MEDS ORDERED: amLODIPine 5 MG TABLET PO SCH ×2 (09:00)
[2019-08-04] MEDS ORDERED: Ringers Solution, Lactated 1,000 ML IVC SCH (09:07)
[2019-08-04] MEDS: *HR* HYDROmorphone 2 MG/ML SYRINGE IVP PRN ×2 (15:33→20:37)
[2019-08-04] MEDS: Ondansetron 4 MG/2 ML VIAL IVP PRN ×2 (15:37→20:37)
[2019-08-04] MEDS ORDERED: Nicotine 2 MG GUM BC PRN (16:15)
[2019-08-04] MEDS ORDERED: Nicotine 21 MG PATCH.TD24 TD SCH (16:15)
[2019-08-04] MEDS: *HR* Heparin 5,000 UNIT/ML VIAL SQ SCH (17:51)
[2019-08-04] MEDS ORDERED: amLODIPine 5 MG TABLET PO ONE (20:07)
[2019-08-04] MEDS: *HR* LORazepam 2 MG/ML VIAL IVP PRN (20:37)
[2019-08-05] MEDS: *HR* HYDROmorphone 2 MG/ML SYRINGE IVP PRN ×2 (01:01→05:41)
[2019-08-05] MEDS: *HR* LORazepam 2 MG/ML VIAL IVP PRN ×2 (01:03→05:41)
[2019-08-05 05:10] LABS: BUN/Creatinine Ratio 15 (6-26); Blood Urea Nitrogen 12 mg/dL (6-20); Calcium 8.8 mg/dL (8.6-10.3); Carbon Dioxide 24 mEq/L (23-29); Chloride 94 mEq/L (98-107); Glucose 153 mg/dL (70-105); Osmolality,Calculated 273 (280-300); Potassium 3.6 mEq/L (3.5-5.1); Sodium 130 mEq/L (136-145); eGFR For African Americans > 60 (> 60); eGFR For Non-African Americans > 60 (> 60)
[2019-08-05] MEDS: *HR* Heparin 5,000 UNIT/ML VIAL SQ SCH (05:41)
[2019-08-05 06:42] VITALS: BP 161/114
[2019-08-05] MEDS ORDERED: Thiamine (B-1) 100 MG TABLET PO SCH (09:00)
[2019-08-05] MEDS ORDERED: Multivit/Ca/Min/Fe/FA 1 TAB TABLET PO SCH (09:00)
[2019-08-05] MEDS ORDERED: Folic Acid 1 MG TABLET PO SCH (09:00)
== END 2019-08-05 06:55 | disposition left against medical advice (07) ==
LOC: 3ANU 15:54 → EMEROOARM 15:54 → 3ANU 19:47 → ICNU 08-04 04:44 → 3BNU 08-04 18:31
PROVIDERS: ADMIT Internal Medicine; ATTEND Internal Medicine

== ENCOUNTER 2019-09-24 15:16 | Observation (INO) ==
[2019-09-24] MEDS ORDERED: Morphine Sulfate 2 MG/ML SYRINGE IVP ONE (15:23)
[2019-09-24 15:51] LABS: Basophils # 0.1 K/mcL (0.0-0.2); Basophils % 0.8 %; Eosinophils # 0.1 K/mcL (0.0-0.6); Eosinophils % 0.8 %; Hematocrit 44.5 % (37.5-50.1); Hemoglobin 15.3 g/dL (12.9-16.9); Immature Granulocytes % 0.1 % (0-4); Immature Platelets 3.1 % (1.1-6.1); Lymphocytes # 3.3 K/mcL (0.6-4.6); Lymphocytes % 38.8 %; Mean Corpuscular HGB Conc 34.4 g/dL (31.6-35.5); Mean Corpuscular Hemoglobin 33.1 pg (28.0-33.3); Mean Corpuscular Volume 96.3 fL (83.0-100.0); Mean Platelet Volume 9.8 fL (9.4-12.4); Monocytes # 0.9 K/mcL (0.0-1.3); Monocytes % 10.1 %; Neutrophils # 4.1 K/mcL (1.6-8.9); Platelet Count 323 K/mcL (140-400); Red Blood Count 4.62 M/mcL (4.19-5.50); Red Cell Distribution Width 17.7 % (11.5-14.5); Segmented Neutrophils % 49.4 %; White Blood Count 8.4 K/mcL (4.3-11.1)
[2019-09-24 16:12] LABS: Activated Partial Thrombo Time 29.9 Seconds (26.0-36.0); INR 1.1; Prothrombin Time 12.7 Seconds (9.4-12.1)
[2019-09-24 16:27] LABS: Alanine Aminotransferase 16 Units/L (7-52); Albumin 3.9 g/dL (3.5-5.7); Albumin/Globulin Ratio 1.4 (1.1-2.2); Alkaline Phosphatase 73 Units/L (34-104); Aspartate Amino Transferase 35 Units/L (13-39); BUN/Creatinine Ratio 11 (6-26); Bilirubin,Direct 0.1 mg/dL (0.0-0.2); Bilirubin,Indirect 0.4 mg/dL (0.0-1.0); Bilirubin,Total 0.5 mg/dL (0.3-1.0); Blood Urea Nitrogen 11 mg/dL (6-20); Calcium 8.3 mg/dL (8.6-10.3); Carbon Dioxide 26 mEq/L (23-29); Chloride 104 mEq/L (98-107); Globulin 2.8 g/dL (2.4-3.5); Glucose 121 mg/dL (70-105); Lipase 641 Units/L (11-82); Osmolality,Calculated 299 (280-300); Potassium 3.9 mEq/L (3.5-5.1); Sodium 144 mEq/L (136-145); Total Protein 6.7 g/dL (6.4-8.9); Troponin I < 0.03 ng/mL (< 0.04); eGFR For African Americans > 60 (> 60); eGFR For Non-African Americans > 60 (> 60)
[2019-09-24] MEDS ORDERED: 0.9 % Sodium Chloride 1,000 ML IVC ONE (16:33)
[2019-09-24] MEDS ORDERED: Ondansetron 4 MG/2 ML VIAL IVP PRN (16:43)
[2019-09-24] MEDS ORDERED: Naloxone 0.4 MG/ML INJ IVP PRN (16:43)
[2019-09-24] MEDS ORDERED: Ringers Solution, Lactated 1,000 ML IVC SCH ×2 (16:45→17:15)
[2019-09-24] MEDS ORDERED: *HR* LORazepam 2 MG/ML VIAL IVP PRN ×2 (16:46→22:02)
[2019-09-24] MEDS ORDERED: Pantoprazole 40 MG VIAL IVP SCH (17:00)
[2019-09-24] MEDS ORDERED: Nicotine 14 MG PATCH.TD24 TD SCH (18:00)
[2019-09-24] MEDS ORDERED: Ondansetron 4 MG/2 ML VIAL IVP ONE (22:00)
[2019-09-24] MEDS: Morphine Sulfate 2 MG/ML SYRINGE IVP ONE (23:11)
[2019-09-25] MEDS: Morphine Sulfate 2 MG/ML SYRINGE IVP ONE (00:23)
[2019-09-25] MEDS ORDERED: amLODIPine 5 MG TABLET PO SCH (01:29)
[2019-09-25] MEDS: *HR* LORazepam 2 MG/ML VIAL IVP PRN ×3 (02:30→11:30)
[2019-09-25] MEDS ORDERED: *HR* Enoxaparin 30 MG/0.3 ML SYRINGE SQ SCH (06:00)
[2019-09-25 06:12] LABS: Basophils # 0.1 K/mcL (0.0-0.2); Basophils % 0.8 %; Eosinophils # 0.1 K/mcL (0.0-0.6); Eosinophils % 0.8 %; Hematocrit 47.5 % (37.5-50.1); Hemoglobin 16.3 g/dL (12.9-16.9); Immature Granulocytes % 0.3 % (0-4); Lymphocytes # 2.2 K/mcL (0.6-4.6); Lymphocytes % 28.2 %; Mean Corpuscular HGB Conc 34.3 g/dL (31.6-35.5); Mean Corpuscular Hemoglobin 32.9 pg (28.0-33.3); Mean Platelet Volume 10.2 fL (9.4-12.4); Monocytes # 0.8 K/mcL (0.0-1.3); Monocytes % 10.1 %; Neutrophils # 4.7 K/mcL (1.6-8.9); Platelet Count 316 K/mcL (140-400); Red Blood Count 4.95 M/mcL (4.19-5.50); Red Cell Distribution Width 17.6 % (11.5-14.5); Segmented Neutrophils % 59.8 %; White Blood Count 7.8 K/mcL (4.3-11.1)
[2019-09-25 06:27] LABS: Chol/HDL Ratio 2.7 (0-4.9)
[2019-09-25 06:28] LABS: BUN/Creatinine Ratio 9 (6-26); Blood Urea Nitrogen 7 mg/dL (6-20); Calcium 8.4 mg/dL (8.6-10.3); Carbon Dioxide 27 mEq/L (23-29); Chloride 100 mEq/L (98-107); Glucose 99 mg/dL (70-105); Osmolality,Calculated 288 (280-300); Potassium 3.6 mEq/L (3.5-5.1); Sodium 140 mEq/L (136-145); eGFR For African Americans > 60 (> 60); eGFR For Non-African Americans > 60 (> 60)
[2019-09-25] MEDS ORDERED: Vitamin B Complex/Vit C/Vit E 1 EACH TABLET PO SCH (09:00)
[2019-09-25] MEDS ORDERED: Folic Acid 1 MG TABLET PO SCH (09:00)
[2019-09-25 09:40] LABS: Estimated Average Glucose 120 mg/dl
[2019-09-25 11:57] VITALS: BP 153/93
[2019-09-25] MEDS ORDERED: Regadenoson 0.4 MG/5 ML SYRINGE IVP ONE (12:04)
[2019-09-26] MEDS ORDERED: *HR* Enoxaparin 40 MG/0.4 ML SYRINGE SQ SCH (06:00)
== END 2019-09-25 16:05 | disposition home or self-care (01) ==
LOC: EMEROOARM 15:16 → 2ANU 15:16
PROVIDERS: ADMIT Internal Medicine; ATTEND Internal Medicine

== ENCOUNTER 2019-10-14 12:55 | Inpatient (IN) ==
[2019-10-14 14:53] LABS: Basophils # 0.1 K/mcL (0.0-0.2); Basophils % 0.5 %; Eosinophils % 0.1 %; Hematocrit 46.7 % (37.5-50.1); Hemoglobin 16.4 g/dL (12.9-16.9); Immature Granulocytes % 0.3 % (0-4); Lymphocytes # 1.2 K/mcL (0.6-4.6); Lymphocytes % 8.2 %; Mean Corpuscular HGB Conc 35.1 g/dL (31.6-35.5); Mean Corpuscular Hemoglobin 33.5 pg (28.0-33.3); Mean Corpuscular Volume 95.5 fL (83.0-100.0); Mean Platelet Volume 11.2 fL (9.4-12.4); Monocytes # 0.8 K/mcL (0.0-1.3); Monocytes % 5.3 %; Neutrophils # 12.2 K/mcL (1.6-8.9); Nucleated Red Blood Cells 0.1 /100 WBC (0); Platelet Count 199 K/mcL (140-400); Red Blood Count 4.89 M/mcL (4.19-5.50); Red Cell Distribution Width 17.6 % (11.5-14.5); Segmented Neutrophils % 85.6 %; White Blood Count 14.3 K/mcL (4.3-11.1)
[2019-10-14] MEDS ORDERED: Thiamine (B-1) 100 MG in 0.9 % Sodium Chloride 50 ML IVPB ONE (15:12)
[2019-10-14] MEDS ORDERED: Folic Acid 1 MG in 0.9 % Sodium Chloride 50 ML IVPB ONE (15:12)
[2019-10-14] MEDS ORDERED: *HR* LORazepam 2 MG/ML VIAL IVP ONE (15:12)
[2019-10-14] MEDS ORDERED: 0.9 % Sodium Chloride 1,000 ML IVC ONE ×2 (15:12→16:01)
[2019-10-14 15:22] LABS: BUN/Creatinine Ratio 9 (6-26); Blood Urea Nitrogen 7 mg/dL (6-20); Calcium 9.6 mg/dL (8.6-10.3); Carbon Dioxide 22 mEq/L (23-29); Chloride 99 mEq/L (98-107); Glucose 145 mg/dL (70-105); Osmolality,Calculated 289 (280-300); Potassium 3.3 mEq/L (3.5-5.1); Sodium 139 mEq/L (136-145); Troponin I < 0.03 ng/mL (< 0.04); eGFR For African Americans > 60 (> 60); eGFR For Non-African Americans > 60 (> 60)
[2019-10-14] MEDS ORDERED: Ondansetron 4 MG/2 ML VIAL IVP ONE (15:22)
[2019-10-14] MEDS ORDERED: Morphine Sulfate 2 MG/ML SYRINGE IVP ONE (15:26)
[2019-10-14] MEDS ORDERED: Folic Acid 1 MG, Thiamine (B-1) 100 MG in 0.9 % Sodium Chloride 100 ML IVPB ONE (15:30)
[2019-10-14 15:58] LABS: Alanine Aminotransferase 62 Units/L (7-52); Albumin 4.3 g/dL (3.5-5.7); Albumin/Globulin Ratio 1.2 (1.1-2.2); Alkaline Phosphatase 124 Units/L (34-104); Aspartate Amino Transferase 111 Units/L (13-39); Bilirubin,Direct 0.3 mg/dL (0.0-0.2); Bilirubin,Indirect 0.6 mg/dL (0.0-1.0); Bilirubin,Total 0.9 mg/dL (0.3-1.0); Globulin 3.7 g/dL (2.4-3.5); Lipase 1675 Units/L (11-82)
[2019-10-14] MEDS ORDERED: Naloxone 0.4 MG/ML INJ IVP PRN (17:21)
[2019-10-14] MEDS ORDERED: *HR* LORazepam 2 MG/ML VIAL IVP PRN ×2 (17:23)
[2019-10-14] MEDS ORDERED: Ringers Solution, Lactated 1,000 ML IVC SCH (17:30)
[2019-10-14] MEDS: amLODIPine 5 MG TABLET PO SCH (20:44)
[2019-10-14] MEDS: Pantoprazole 40 MG VIAL IVP SCH (20:44)
[2019-10-14] MEDS: Ringers Solution, Lactated 1,000 ML IVC SCH (20:45)
[2019-10-14] MEDS: Nicotine 14 MG PATCH.TD24 TD SCH (23:07)
[2019-10-14] MEDS: *HR* LORazepam 2 MG/ML VIAL IVP PRN (23:13)
[2019-10-15 05:04] LABS: Basophils % 0.1 %; Hematocrit 45.1 % (37.5-50.1); Immature Granulocytes % 0.6 % (0-4); Lymphocytes # 1.5 K/mcL (0.6-4.6); Lymphocytes % 9.9 %; Mean Corpuscular HGB Conc 35.5 g/dL (31.6-35.5); Mean Corpuscular Hemoglobin 33.3 pg (28.0-33.3); Mean Corpuscular Volume 93.8 fL (83.0-100.0); Mean Platelet Volume 11.4 fL (9.4-12.4); Monocytes # 1.2 K/mcL (0.0-1.3); Monocytes % 7.8 %; Neutrophils # 12.6 K/mcL (1.6-8.9); Nucleated Red Blood Cells 0.1 /100 WBC (0); Platelet Count 188 K/mcL (140-400); Red Blood Count 4.81 M/mcL (4.19-5.50); Red Cell Distribution Width 17.6 % (11.5-14.5); Segmented Neutrophils % 81.6 %; White Blood Count 15.4 K/mcL (4.3-11.1)
[2019-10-15 05:26] LABS: BUN/Creatinine Ratio 11 (6-26); Blood Urea Nitrogen 8 mg/dL (6-20); Calcium 8.9 mg/dL (8.6-10.3); Carbon Dioxide 23 mEq/L (23-29); Chloride 97 mEq/L (98-107); Glucose 109 mg/dL (70-105); Osmolality,Calculated 277 (280-300); Potassium 3.6 mEq/L (3.5-5.1); Sodium 134 mEq/L (136-145); Troponin I 0.03 ng/mL (< 0.04); eGFR For African Americans > 60 (> 60); eGFR For Non-African Americans > 60 (> 60)
[2019-10-15] MEDS: Ringers Solution, Lactated 1,000 ML IVC SCH ×4 (06:24→21:10)
[2019-10-15] MEDS: Ondansetron 4 MG/2 ML VIAL IVP PRN ×2 (08:34→21:09)
[2019-10-15] MEDS: Pantoprazole 40 MG VIAL IVP SCH (08:36)
[2019-10-15] MEDS: Nicotine 14 MG PATCH.TD24 TD SCH (08:36)
[2019-10-15] MEDS: Vitamin B Complex/Vit C/Vit E 1 EACH TABLET PO SCH (08:38)
[2019-10-15] MEDS: Thiamine (B-1) 100 MG TABLET PO SCH (08:38)
[2019-10-15] MEDS: Folic Acid 1 MG TABLET PO SCH (08:38)
[2019-10-15] MEDS: amLODIPine 5 MG TABLET PO SCH (08:38)
[2019-10-15] MEDS: Morphine Sulfate 2 MG/ML SYRINGE IVP PRN ×3 (08:44→21:09)
[2019-10-15] MEDS: *HR* LORazepam 2 MG/ML VIAL IVP PRN ×3 (08:44→21:10)
[2019-10-15] MEDS ORDERED: Gabapentin 100 MG CAPSULE PO PRN (13:38)
[2019-10-15 13:56] LABS: Alanine Aminotransferase 50 Units/L (7-52); Albumin 4.1 g/dL (3.5-5.7); Albumin/Globulin Ratio 1.2 (1.1-2.2); Alkaline Phosphatase 111 Units/L (34-104); Aspartate Amino Transferase 83 Units/L (13-39); Bilirubin,Direct 0.4 mg/dL (0.0-0.2); Bilirubin,Indirect 0.6 mg/dL (0.0-1.0); Globulin 3.4 g/dL (2.4-3.5); Total Protein 7.5 g/dL (6.4-8.9)
[2019-10-16] MEDS: Morphine Sulfate 2 MG/ML SYRINGE IVP PRN ×4 (02:00→22:06)
[2019-10-16] MEDS: *HR* LORazepam 2 MG/ML VIAL IVP PRN ×4 (02:00→22:06)
[2019-10-16] MEDS: Ringers Solution, Lactated 1,000 ML IVC SCH ×2 (04:10→10:54)
[2019-10-16 08:33] LABS: Basophils % 0.3 %; Eosinophils # 0.1 K/mcL (0.0-0.6); Eosinophils % 0.7 %; Hematocrit 39.4 % (37.5-50.1); Hemoglobin 14.1 g/dL (12.9-16.9); Immature Granulocytes % 0.7 % (0-4); Lymphocytes # 2.3 K/mcL (0.6-4.6); Lymphocytes % 22.5 %; Mean Corpuscular HGB Conc 35.8 g/dL (31.6-35.5); Mean Corpuscular Volume 94.9 fL (83.0-100.0); Mean Platelet Volume 11.5 fL (9.4-12.4); Monocytes # 1.1 K/mcL (0.0-1.3); Neutrophils # 6.7 K/mcL (1.6-8.9); Nucleated Red Blood Cells 0.4 /100 WBC (0); Platelet Count 178 K/mcL (140-400); Red Blood Count 4.15 M/mcL (4.19-5.50); Segmented Neutrophils % 64.8 %; White Blood Count 10.3 K/mcL (4.3-11.1)
[2019-10-16 08:55] LABS: Alanine Aminotransferase 58 Units/L (7-52); Albumin 3.2 g/dL (3.5-5.7); Albumin/Globulin Ratio 1.1 (1.1-2.2); Alkaline Phosphatase 94 Units/L (34-104); Aspartate Amino Transferase 141 Units/L (13-39); BUN/Creatinine Ratio 17 (6-26); Bilirubin,Total 0.8 mg/dL (0.3-1.0); Blood Urea Nitrogen 14 mg/dL (6-20); Calcium 8.5 mg/dL (8.6-10.3); Carbon Dioxide 29 mEq/L (23-29); Chloride 99 mEq/L (98-107); Glucose 96 mg/dL (70-105); Osmolality,Calculated 286 (280-300); Sodium 138 mEq/L (136-145); Total Protein 6.2 g/dL (6.4-8.9); eGFR For African Americans > 60 (> 60); eGFR For Non-African Americans > 60 (> 60)
[2019-10-16] MEDS: Nicotine 14 MG PATCH.TD24 TD SCH (10:32)
[2019-10-16] MEDS: Vitamin B Complex/Vit C/Vit E 1 EACH TABLET PO SCH (10:34)
[2019-10-16] MEDS: Ondansetron 4 MG/2 ML VIAL IVP PRN ×2 (10:34→22:06)
[2019-10-16] MEDS: Thiamine (B-1) 100 MG TABLET PO SCH (10:34)
[2019-10-16] MEDS: Folic Acid 1 MG TABLET PO SCH (10:35)
[2019-10-16] MEDS: amLODIPine 5 MG TABLET PO SCH (10:35)
[2019-10-16] MEDS ORDERED: Ringers Solution, Lactated 1,000 ML IVC SCH (11:13)
[2019-10-16] MEDS: Potassium Chloride Elixir 20 MEQ/15 ML UDC PO SCH ×2 (14:45→16:50)
[2019-10-17] MEDS: Morphine Sulfate 2 MG/ML SYRINGE IVP PRN (02:56)
[2019-10-17] MEDS: *HR* LORazepam 2 MG/ML VIAL IVP PRN (02:56)
[2019-10-17 02:57] VITALS: BP 155/83
[2019-10-17 05:56] LABS: Basophils % 0.4 %; Eosinophils % 0.5 %; Hematocrit 44.3 % (37.5-50.1); Hemoglobin 15.5 g/dL (12.9-16.9); Immature Granulocytes % 0.7 % (0-4); Lymphocytes # 1.4 K/mcL (0.6-4.6); Lymphocytes % 17.3 %; Mean Corpuscular Hemoglobin 33.2 pg (28.0-33.3); Mean Corpuscular Volume 94.9 fL (83.0-100.0); Mean Platelet Volume 11.5 fL (9.4-12.4); Monocytes # 1.3 K/mcL (0.0-1.3); Monocytes % 15.6 %; Neutrophils # 5.4 K/mcL (1.6-8.9); Nucleated Red Blood Cells 0.2 /100 WBC (0); Platelet Count 214 K/mcL (140-400); Red Blood Count 4.67 M/mcL (4.19-5.50); Red Cell Distribution Width 17.9 % (11.5-14.5); Segmented Neutrophils % 65.5 %; White Blood Count 8.3 K/mcL (4.3-11.1)
[2019-10-17 06:27] LABS: Alanine Aminotransferase 104 Units/L (7-52); Albumin 3.7 g/dL (3.5-5.7); Albumin/Globulin Ratio 1.1 (1.1-2.2); Alkaline Phosphatase 133 Units/L (34-104); Aspartate Amino Transferase 192 Units/L (13-39); BUN/Creatinine Ratio 9 (6-26); Bilirubin,Total 0.8 mg/dL (0.3-1.0); Blood Urea Nitrogen 7 mg/dL (6-20); Carbon Dioxide 26 mEq/L (23-29); Chloride 97 mEq/L (98-107); Globulin 3.5 g/dL (2.4-3.5); Glucose 155 mg/dL (70-105); Magnesium 1.6 mg/dL (1.6-2.6); Osmolality,Calculated 281 (280-300); Potassium 3.3 mEq/L (3.5-5.1); Sodium 135 mEq/L (136-145); Total Protein 7.2 g/dL (6.4-8.9); eGFR For African Americans > 60 (> 60); eGFR For Non-African Americans > 60 (> 60)
== END 2019-10-17 07:25 | disposition left against medical advice (07) | DRG 439 ==
LOC: 3ANU 12:55 → EMEROOARM 12:55 → SUATTDRO 17:02 → 3ANU 18:30
PROVIDERS: ADMIT Internal Medicine; ATTEND Internal Medicine

== ENCOUNTER 2020-09-21 18:43 | Observation (INO) ==
[2020-09-21 19:16] LABS: Bilirubin,Urine Negative (Negative); Blood,Urine Negative (Negative); Clarity,Urine Clear (Clear); Color,Urine Light-Yellow (Yellow); Glucose,Urine (UA) Normal (Normal); Ketones,Urine Negative (Negative); Leukocyte Esterase,Urine Negative (Negative); Nitrite,Urine Negative (Negative); PH,Urine 6.5 pH Units (5.0-8.0); Protein,Urine Trace mg/dL (Neg-Trace); Specific Gravity,Urine 1.011 (1.010-1.025); Urobilinogen,Urine Normal (Normal)
[2020-09-21 19:20] LABS: Basophils % 0.7 %; Eosinophils # 0.1 K/mcL (0.0-0.6); Hematocrit 40.2 % (37.5-50.1); Immature Granulocytes % 0.2 % (0-4); Lymphocytes # 3.1 K/mcL (0.6-4.6); Lymphocytes % 51.4 %; Mean Corpuscular HGB Conc 34.8 g/dL (31.6-35.5); Mean Corpuscular Hemoglobin 32.5 pg (28.0-33.3); Mean Corpuscular Volume 93.3 fL (83.0-100.0); Mean Platelet Volume 11.7 fL (9.4-12.4); Monocytes # 0.8 K/mcL (0.0-1.3); Monocytes % 12.6 %; Platelet Count 166 K/mcL (140-400); Red Blood Count 4.31 M/mcL (4.19-5.50); Red Cell Distribution Width 18.6 % (11.5-14.5); Segmented Neutrophils % 34.1 %
[2020-09-21 19:26] LABS: Amphetamine Screen,Urine Negative ng/mL (Cutoff=1000); Barbiturate Screen,Urine Negative ng/mL (Cutoff=200); Benzodiazepines Screen,Urine Negative ng/mL (Cutoff=200); Cannabinoid Screen,Urine Negative ng/mL (Cutoff = 50); Cocaine Screen,Urine Negative ng/mL (Cutoff= 300); Opiate Screen,Urine Negative ng/mL (Cutoff=300); Phencyclidine Screen,Urine Negative ng/mL (Cutoff=25)
[2020-09-21 19:33] LABS: Acetaminophen 10 mcg/mL (10-20); BUN/Creatinine Ratio 12 (6-26); Blood Urea Nitrogen 12 mg/dL (6-20); Calcium 8.3 mg/dL (8.6-10.3); Carbon Dioxide 23 mEq/L (23-29); Chloride 104 mEq/L (98-107); Ethanol 345 mg/dL (Less than 10); Glucose 105 mg/dL (70-105); Osmolality,Calculated 288 (280-300); Potassium 3.5 mEq/L (3.5-5.1); Salicylate < 2.5 mg/dL (15.0-30.0); Sodium 139 mEq/L (136-145); eGFR For African Americans > 60 (> 60); eGFR For Non-African Americans > 60 (> 60)
[2020-09-21] MEDS ORDERED: Naloxone 0.4 MG/ML INJ IVP PRN (22:25)
[2020-09-21] MEDS ORDERED: *HR* LORazepam 2 MG/ML VIAL IVP PRN ×2 (22:25)
[2020-09-21] MEDS ORDERED: Folic Acid 1 MG in 0.9 % Sodium Chloride 50 ML IVPB SCH (22:30)
[2020-09-21] MEDS: Ondansetron 4 MG/2 ML VIAL IVP PRN (23:31)
[2020-09-21] MEDS: *HR* LORazepam 2 MG/ML VIAL IVP PRN (23:31)
[2020-09-22] MEDS: SODIUM CHLORIDE 0.9% IVPB SCH ×2 (00:30→17:27)
[2020-09-22] MEDS: THIAMINE IVPB SCH ×2 (00:30→17:27)
[2020-09-22] MEDS: FOLIC ACID IVPB SCH ×2 (00:30→17:27)
[2020-09-22] MEDS: *HR* LORazepam 2 MG/ML VIAL IVP PRN ×4 (06:44→18:23)
[2020-09-22] MEDS: Ondansetron 4 MG/2 ML VIAL IVP PRN (09:06)
[2020-09-22] MEDS ORDERED: Nicotine 21 MG PATCH.TD24 TD SCH (17:45)
[2020-09-22] MEDS: Acetaminophen 325 MG TABLET PO PRN (18:23)
[2020-09-22 21:05] VITALS: BP 149/92
[2020-09-22] MEDS ORDERED: Melatonin 3 MG TABLET PO PRN (21:55)
[2020-09-23] MEDS: Acetaminophen 325 MG TABLET PO PRN (00:30)
[2020-09-23] MEDS ORDERED: Gabapentin 100 MG CAPSULE PO SCH (09:00)
[2020-09-23] MEDS ORDERED: amLODIPine 5 MG TABLET PO SCH (09:00)
[2020-09-23] MEDS ORDERED: lisinopriL 5 MG TABLET PO SCH (09:00)
== END 2020-09-23 01:38 | disposition left against medical advice (07) ==
LOC: 3BNU 18:43 → EMEROOARM 18:43 → SUATTDRO 21:53 → 3BNU 22:30
PROVIDERS: ADMIT Internal Medicine; ATTEND Internal Medicine